=== PATIENT | female | born 1935 | race Caucasian/White ===

== ENCOUNTER 2018-05-30 11:32 | Outpatient (CLI) | payer MEDICARE, SELFPAY ==
[2018-05-30 13:25] LABS: ALT 27 U/L (12-78); AST 26 U/L (15-37); Albumin 3.6 g/dL (3.4-5.0); Alkaline Phosphatase 105 U/L (46-116); Anion Gap 11.1 mmol/L (3-11); BUN 22 mg/dL (7-18); CO2 27.9 mmol/L (21.0-32.0); CREATININE 0.64 mg/dL (0.55-1.02); Calcium 9.3 mg/dL (8.5-10.1); Chloride 106 mmol/L (98-107); Cholesterol 160 mg/dL (50-200); Glucose 103 mg/dL (70-100); HDL Cholesterol 53 mg/dL (40-60); LDL CHOLESTEROL 90 mg/dL (<100); Potassium 4.1 mmol/L (3.5-5.1); Sodium 145 mmol/L (136-145); Total Protein 6.7 g/dL (6.4-8.2); Triglyceride 91 mg/dL (30-150)
== END 2018-05-30 11:52 ==
PROVIDERS: PCP Internal Medicine; Visit Provider Internal Medicine
DX: I10 Essential (primary) hypertension (principal)
CPT/HCPCS: 36415; 80053; 80061; 83721

== ENCOUNTER 2018-08-15 14:12 | Outpatient (CLI) | payer MEDICARE, SELFPAY ==
--- NOTE | 2018-09-05 11:20 | ZIOP_ITS ---
DATE OF DICTATION: September 05, [address]: 12 days, 4 hours, August 152018 Baseline rhythm sinus. Occasional single PAC. Atrial fibrillation noted on 30% of this monitor with heart rates 80-130 bpm. Longest episode of atr ial fibrillation: 2 hours, 15 minutes with average rate 114 bpm. Rare single PVC. Rare couplet. One burst of nonsustained VT, 6-beat duration at 174 bpm. No bradycardia or block. No symptoms. No triggered events. Average rate sinus 68 bpm, range 51-99 bpm.
== END 2018-08-15 14:32 ==
PROVIDERS: PCP Internal Medicine; Visit Provider Internal Medicine
DX: I48.91 Unspecified atrial fibrillation (principal)
CPT/HCPCS: 0296T

== ENCOUNTER 2018-09-05 08:42 | Outpatient (CLI) | payer MEDICARE, SELFPAY | END 2018-09-05 09:02 | PROVIDERS: PCP Internal Medicine; Referring Provider Internal Medicine; Visit Provider Internal Medicine Interventional Cardiology | DX: I48.91 Unspecified atrial fibrillation (principal) | CPT/HCPCS: 0298T ==

== ENCOUNTER 2019-08-09 02:43 | Outpatient (CLI) | payer OTHER, SELFPAY ==
[2019-08-09 16:28] LABS: TSH (W/Ref FT4) 1.35 uIU/mL (0.36-3.74); Vitamin B12 623 pg/mL (193-986)
[2019-08-09 16:42] LABS: Creatine Kinase 96 U/L (26-192)
[2019-08-12 09:36] LABS: Thiamine (Vitamin B1), WB 173 nmol/L (70-180)
== END 2019-08-09 03:03 ==
PROVIDERS: PCP Internal Medicine; Visit Provider Internal Medicine
DX: R41.3 Other amnesia (principal); R25.2 Cramp and spasm
CPT/HCPCS: 36415; 82550; 82607; 84425; 84443

== ENCOUNTER 2019-09-19 01:41 | Outpatient (CLI) | payer OTHER, SELFPAY ==
--- NOTE | 2019-09-19 | DI.MAMMO_ITS ---
EXAM: MAMMO SCREENING CLINICAL HISTORY: SCREENING, Z12.31 TECHNIQUE: Mammograms were interpreted according to the usual protocol including computer analysis w [employer] system, tomosynthesis and C-view imaging. COMPARISON: FINDINGS: The breasts are of moderate density with fairly symmetrical distribution of fibroglandular tissue. N o dominant mass or clumped microcalcification is identified in either breast. Current examination co mpared with previous examinations including April 2017 and there has been no gross interval change in appearance comparison with previous studies. IMPRESSION: No specific evidence of malignancy at this time. Routine screening examinations are suggested at yea rly intervals in this age group according to the ACS ACR guidelines. BI-RADS Category 1 - Negative Breast Density - Category B - Scattered areas of fibroglandular density
--- NOTE | 2019-09-19 09:30 | DI.DEXA_ITS ---
EXAM: XR DEXA BONE DENSITY W/WO EVELIN CLINICAL HISTORY: SCREENING FOR OSTEOPOROSIS IN POSTMENOPAUSAL WOMAN, Z78.0 TECHNIQUE: COMPARISON: No exams were available for comparison FINDINGS: DEXA scan was performed according to the usual protocol. Note is made mild anterior vertebral compression fracture of what appears to be T11. Scanning of the left hip shows T-score -1.9 with left femoral neck T-score -2.5. Prior study of 2010 showed left hip T-score -1.6. Lumbar spine scanning shows T-score 1.3. Previous examination of 25/01 showed lumbar T-score 0.4. Left forearm scanning shows T-score -3.6. Prior study of 25/01 showed forearm T-score -2.3. IMPRESSION: Findings consistent with osteoporosis according to the WHO criteria. Note is made T11 mild anterior vertebral compression fracture.
== END 2019-09-19 02:01 ==
PROVIDERS: PCP Internal Medicine; Visit Provider Internal Medicine
DX: Z12.31 Encounter for screening mammogram for malignant neoplasm of breast (principal); M81.0 Age-related osteoporosis without current pathological fracture
CPT/HCPCS: 77063; 77067; 77080

== ENCOUNTER 2019-09-19 03:42 | Outpatient (CLI) | payer OTHER, SELFPAY ==
[2019-09-19 10:56] LABS: ALT 25 U/L (14-59); AST 27 U/L (15-37); Albumin 3.3 g/dL (3.4-5.0); Alkaline Phosphatase 87 U/L (46-116); Anion Gap 6.6 mmol/L (3-11); BUN 22 mg/dL (7-18); CO2 31.4 mmol/L (21.0-32.0); CREATININE 0.66 mg/dL (0.55-1.02); Calcium 8.8 mg/dL (8.5-10.1); Calculated LDL 82 mg/dL (<100); Chloride 106 mmol/L (98-107); Cholesterol 138 mg/dL (<200); Glucose 103 mg/dL (74-106); HDL Cholesterol 45 mg/dL (40-60); Potassium 4.2 mmol/L (3.5-5.1); Sodium 144 mmol/L (136-145); Total Protein 6.5 g/dL (6.4-8.2); Triglyceride 55 mg/dL (<150)
== END 2019-09-19 04:02 ==
PROVIDERS: PCP Internal Medicine; Visit Provider Internal Medicine
DX: R25.2 Cramp and spasm (principal); I10 Essential (primary) hypertension
CPT/HCPCS: 36415; 80053; 80061; 83735

== ENCOUNTER 2020-01-15 03:39 | Outpatient (CLI) | payer OTHER, MEDICARE, SELFPAY ==
[2020-01-15 10:18] LABS: Abs Immature Grans 0.03 10^3/uL (0.0-0.06); Absolute Basophil Count 0.02 10^3/uL (0.0-0.2); Absolute Eosinophil Count 0.12 10^3/uL (0.0-0.7); Absolute Monocyte Count 0.51 10^3/uL (0.1-0.8); Absolute Neutrophil Count 4.13 10^3/uL (1.2-6.7); Basophils % 0.3; Eosinophils % 1.9; HCT 43.7 % (36.0-46.0); HGB 14.1 g/dL (11.2-15.7); Immature Grans % 0.5; Lymphocytes % 23.8; MCHC 32.3 % (32.0-36.0); MPV 11.5 fL (8.0-11.0); Monocytes % 8.1; Neutrophils % 65.4; Nucleated RBC 0 %; Platelet Count 178 10^3/uL (130-400); RBC 4.55 10^6/uL (3.93-5.22); RDW 12.4 % (11.7-14.6); RDW-SD 44.3 fL; WBC 6.31 10^3/uL (4.4-10.8)
[2020-01-19 17:02] LABS: 25-Hydroxy D Total 49 ng/mL; 25-Hydroxy D2 <4.0 ng/mL; 25-Hydroxy D3 49 ng/mL
== END 2020-01-15 03:59 ==
PROVIDERS: PCP Internal Medicine; Visit Provider Internal Medicine
DX: M81.0 Age-related osteoporosis without current pathological fracture (principal)
CPT/HCPCS: 36415; 82306; 83735; 85025

== ENCOUNTER 2020-02-14 02:57 | Outpatient (RCR) | payer OTHER, SELFPAY ==
[2020-02-14] MEDS: Normal Saline Flush 10 ML SYR IVP (09:52)
== END 2020-03-07 23:59 | disposition home or self-care (01) ==
LOC: INF 02:57
PROVIDERS: PCP Internal Medicine; Visit Provider Family Medicine
DX: M81.0 Age-related osteoporosis without current pathological fracture (principal)
CPT/HCPCS: 96365; J3489

== ENCOUNTER 2020-11-05 10:16 | Emergency (ER) | payer OTHER, MEDICARE, SELFPAY ==
[2020-11-05] VITALS (21 sets, daily range): BP systolic 153–206; BP diastolic 79–133; PULSE 56–72; RESP 10–25; TEMP 36.2–36.5; O2SAT 94–98
--- NOTE | 2020-11-05 10:15 | DI.RAD_ITS ---
Exam(s) XR CHEST 2V PA LATERAL EXAM: XR CHEST 2V PA LATERAL CLINICAL HISTORY: chest pain TECHNIQUE: 2D digital imaging was performed. COMPARISON: No exams were available for comparison FINDINGS: MEDIASTINUM: Normal. HEART: Normal. PULMONARY VASCULATURE: There is prominence of the superior mediastinum, particularly in the right par atracheal region. This may be due to adenopathy, mass or ectasia of the pulmonary vasculature. A CT scan may be considered for further evaluation. LUNGS: Clear. PLEURAL SPACE: No pleural effusion or pneumothorax. BONE:Within normal limits for the patient's age. OTHER FINDINGS:Normal. IMPRESSION: 1. No acute pulmonary findings. 2. Widening of the superior mediastinum. This can be seen with mass, adenopathy or ectasia of the pu lmonary vasculature. A CT scan with contrast may be considered for further evaluation. DATA REPOSITORY: RADIATION DOSE DELIVERED:
--- NOTE | 2020-11-05 10:15 | RT.EKG_ITS ---
APPROVED REPORT Exam: Resting ECG Reason for Exam: chest pain Patient Location: E HR:72 bpm ECG Measurements Heart Rate [address] 199 P 57 QRSd 80 QRS 18 QT 448 T 62 QTc 490 Conclusion Sinus rhythm...normal P axis, V-rate 60- 99 Probable left atrial enlargement...P >50mS, <-0.10mV V1
--- NOTE | 2020-11-05 10:33 | W.ED.GENAD ---
Discharge Plan Disposition Patient Disposition: HOME Condition: Stable Discharge Details Clinical Impression: Chest pain, Hypertension Primary Care Provider: [facility] ED Provider: Kobe Gil Home Meds and New Rx's Prescriptions: Continued diphenhydramine-acetaminophen [Tylenol PM Extra Strength] 1 EACH tablet 1 ea PO PRN PRNRF: 0 atorvastatin 40 mg tablet 40 mg PO DAILY RF: 0 buspirone 5 mg tablet 5 mg PO BID RF: 0 metoprolol succinate 100 mg tablet extended release 24 hr 100 mg PO DAILY RF: 0 omega-3 fatty acids Capsule 1 cap PO DAILY RF: 0 calcium carbonate-vitamin D3 [Calcium 500 With D] 500 mg(1,250mg) -400 unit Tablet 1 tab PO DAILY RF: 0 diclofenac sodium [Arthritis Pain (diclofenac)] 1 % Gel 1 applic TOPICAL PRN PRNRF: 0 Eliquis 2.5 mg tablet 2.5 mg PO BID RF: 0 Adults Multivitamin 18 mg iron-400 mcg-25 mcg Tablet 1 tab PO DAILY RF: 0 Discharge Instructions Instructions: Chest Pain (ED), Hypertension (ED) Additional Instructions: Work-up in the ER does not reveal any obvious emergent process. As we discussed your blood pressure was elevated here in the ER but did trend downward without intervention. I do recommend that you take a dose of 75 mg of losartan rather than your typical 50. Please keep a log of your blood pressures at home and bring them to your appointment when you see your primary care provider. Please watch for new or worsening symptoms and return to the ER for any concern. I strongly recommend that you contact your primary care provider later today or tomorrow to discuss your ongoing symptoms and need for outpatient reevaluation. I do not want you to wait a full month as scheduled to be seen by her primary care provider. Medical Decision Making This is an 85-year-old female, past medical history of hypertension, hyperlipidemia, Marfan's syndrome, aneurysm of the brain and aorta, presenting to the ER for evaluation of left sided chest pain under her breast that woke her up around 3:00. Pain was moderate-severe at that time and lasted for several hours. Since that time has come in sporadic episodes, nothing makes it worse or better. When present lasts for a couple of seconds it is sharp in nature. When present though the pain is much less severe than when it began, typically now a 2 out of 10. Currently she is a symptom includes differential includes but not excluded to atypical ACS, PE, aneurysm, dissection, pneumonia, esophageal spasm, chest wall discomfort, etc. Given her history of aneurysm, will not initiate any aspirin therapy emergently. Will obtain IV access, initiate cardiac work-up including a D-dimer Patient did present hypertensive at 202/79, without any intervention, blood pressure was decreasing, 156/133, 176/89. She remains asymptomatic Laboratory values do not reveal any obvious emergent process, troponin less than 0.05. D-dimer is elevated at 948. Will pursue CT imaging of the chest for further evaluation. I contacted our radiology department and discussed signs specifically looking for both a PE and potential dissection so they may be better time the study. CT imaging unremarkable for emergent process, please see official read below stable aneurysm, no PE Repeat blood pressure of 181/83. Her pharmacy was contacted, her losartan 50 mg is a scored pill. I discussed her hypertension with her, again currently asymptomatic. Patient states that she was on amlodipine in the past but this medication caused side effects so her hypertension medications were changed. Patient will begin taking 75 mg of losartan instead of 50 and start keeping a log of her blood pressures at home. She states that she is scheduled to be seen by her primary care provider in the next month, I have advised that she contact them later today or tomorrow to discuss her ongoing symptoms and need for outpatient reevaluation. She may need her blood pressure medications further changed to obtain better control. The patient is agreeable to awaiting a repeat troponin and EKG repeat EKG performed at 1259, please see official report by Dr. Momin. Sinus rhythm, ventricular rate of 79, IA interval prolonged at 220 ms. No STEMI. Repeat troponin remains less than 0.05 Rapid cardiac rule out unremarkable here in the ER. Patient remains asymptomatic. Given her age and multiple comorbidities we discussed observation admission but patient declines. Given this, she was encouraged to return to the ER for any new or worsening symptoms. As above she will contact her primary care provider in the next 24 hours begin taking 75 mg. Patient and daughter are comfortable with this plan and have no additional questions or concerns. Standard discharge and return precautions given This documentation was generated using [employer] system, please disregard any oddities of phrase or misspellings. Medical Records Medical records reviewed: Yes I reviewed the patient's medical records. Imaging Data Radiologic Study: Attestation: I personally reviewed and interpreted this imaging study as follows: Imaging: X-Ray Radiologist's impression: Exam(s) XR CHEST 2V PA LATERAL EXAM: XR CHEST 2V PA LATERAL CLINICAL HISTORY: chest pain TECHNIQUE: 2D digital imaging was performed. COMPARISON: No exams were available for comparison FINDINGS: MEDIASTINUM: Normal. HEART: Normal. PULMONARY VASCULATURE: There is prominence of the superior mediastinum, particularly in the right paratracheal region. This may be due to adenopathy, mass or ectasia of the pulmonary vasculature. A CT scan may be considered for further evaluation. LUNGS: Clear. PLEURAL SPACE: No pleural effusion or pneumothorax. BONE:Within normal limits for the patient's age. OTHER FINDINGS:Normal. IMPRESSION: 1. No acute pulmonary findings. 2. Widening of the superior mediastinum. This can be seen with mass, adenopathy or ectasia of the pulmonary vasculature. A CT scan with contrast may be considered for further evaluation. Radiologic Study #2: Attestation: I personally reviewed and interpreted this imaging study as follows: Imaging: CT Scan Radiologist's impression: Exam(s) CT CHEST PE CTA EXAM: CT CHEST PE CTA CLINICAL HISTORY: Dario pain, R/o PE, Hx of Marfan's and aneurysm. TECHNIQUE: Imaging Protocol: Axial CT angiography was performed with multi-slice acquisition and multi-planar and/or 3D reconstructions. CONTRAST MATERIAL: Intravenous: Omnipaque 350 Contrast volume:100 mL COMPARISON: CR XR CHEST 2V PA LATERAL from 11/05/2020 CR XR CHEST 2V PA LATERAL from 11/05/2020 FINDINGS: Tracheobronchial tree: Patent where visualized. Pulmonary parenchyma: No consolidation or dominant measurable mass. No architectural distortion. There is dependent atelectasis. Pulmonary Arteries: No evidence of filling defect to suggest pulmonary emboli. Mediastinum and Agnes: No dominant adenopathy or fluid collection. Visualized thyroid gland: Unremarkable. Pleura: No effusion or pneumothorax. Cardiomegaly. Heart: Cardiomegaly. Moderate coronary artery calcification. No pericardial effusion. Aorta: There is aneurysmal dilatation of the ascending thoracic aorta measuring 4.9 cm in maximum diameter. There is atherosclerosis. Upper abdomen: Parapelvic renal cysts are present. Soft tissues: Unremarkable. Bones: Within normal limits. IMPRESSION: 1. No evidence of pulmonary embolism or thoracic aortic dissection. 2. 4.9 cm ascending thoracic aortic aneurysm. 3. Results of this exam have been verbally communicated with provider. Lab Data Lab results reviewed: Yes I reviewed the patient's lab results. Labs: Laboratory Tests Range/Units 11/05/20 11/05/20 11/05/20 10:28 10:28 10:54 WBC (4.4-10.8) 10^3/uL 8.21 RBC (3.93-5.22) 10^6/uL 4.77 Hgb (11.2-15.7) g/dL 14.9 Hct (36.0-46.0) % 48.0 H MCV (80-95) fL 100.6 H MCH (27.0-33.0) pg 31.2 MCHC (32.0-36.0) % 31.0 L RDW (11.7-14.6) % 12.6 Plt Count (130-400) 10^3/uL 162 MPV (8.0-11.0) fL 11.8 H Immature Gran % 0.6 Neutrophils % 74.0 Lymphocytes % 16.8 Monocytes % 7.1 Eosinophils % 1.1 Basophils % 0.4 Nucleated RBC % % 0 Absolute Neutrophils (1.2-6.7) 10^3/uL 6.08 Absolute Lymphocytes (1.2-3.4) 10^3/uL 1.38 Absolute Monocytes (0.1-0.8) 10^3/uL 0.58 Absolute Eosinophils (0.0-0.7) 10^3/uL 0.09 Absolute Basophils (0.0-0.2) 10^3/uL 0.03 PT (9.3-11.0) sec INR (0.9-1.1) APTT (21.0-27.5) sec D-Dimer (<500) ng/mlFEU Sodium (136-145) mmol/L 144 Potassium (3.5-5.1) mmol/L 3.9 Chloride (98-107) mmol/L 107 Carbon Dioxide (21.0-32.0) mmol/L 30.8 Anion Gap (3-11) mmol/L 6.2 BUN (7-18) mg/dL 11 Creatinine (0.55-1.02) mg/dL 0.6 Estimated GFR/1.73 m2 (mL/min/1.73m2) >= 60.00 Glucose (74-106) mg/dL 97 Calcium (8.5-10.1) mg/dL 8.6 Magnesium (1.8-2.4) mg/dL 1.9 Total Bilirubin (0.2-1.0) mg/dL 0.7 AST (15-37) U/L 19 ALT (14-59) U/L 25 Alkaline Phosphatase (46-116) U/L 73 Troponin I (<0.06) ng/mL < 0.05 Total Protein (6.4-8.2) g/dL 6.5 Albumin (3.4-5.0) g/dL 3.2 L Range/Units 11/05/20 11/05/20 10:54 13:28 WBC (4.4-10.8) 10^3/uL RBC (3.93-5.22) 10^6/uL Hgb (11.2-15.7) g/dL Hct (36.0-46.0) % MCV (80-95) fL MCH (27.0-33.0) pg MCHC (32.0-36.0) % RDW (11.7-14.6) % Plt Count (130-400) 10^3/uL MPV (8.0-11.0) fL Immature Gran % Neutrophils % Lymphocytes % Monocytes % Eosinophils % Basophils % Nucleated RBC % % Absolute Neutrophils (1.2-6.7) 10^3/uL Absolute Lymphocytes (1.2-3.4) 10^3/uL Absolute Monocytes (0.1-0.8) 10^3/uL Absolute Eosinophils (0.0-0.7) 10^3/uL Absolute Basophils (0.0-0.2) 10^3/uL PT (9.3-11.0) sec 10.5 INR (0.9-1.1) 1.0 APTT (21.0-27.5) sec 23.0 D-Dimer (<500) ng/mlFEU 948 H Sodium (136-145) mmol/L Potassium (3.5-5.1) mmol/L Chloride (98-107) mmol/L Carbon Dioxide (21.0-32.0) mmol/L Anion Gap (3-11) mmol/L BUN (7-18) mg/dL Creatinine (0.55-1.02) mg/dL Estimated GFR/1.73 m2 (mL/min/1.73m2) Glucose (74-106) mg/dL Calcium (8.5-10.1) mg/dL Magnesium (1.8-2.4) mg/dL Total Bilirubin (0.2-1.0) mg/dL AST (15-37) U/L ALT (14-59) U/L Alkaline Phosphatase (46-116) U/L Troponin I (<0.06) ng/mL < 0.05 Total Protein (6.4-8.2) g/dL Albumin (3.4-5.0) g/dL ECG Data Attestation: I personally reviewed and interpreted this ECG (s) as follows: Interpretation: Please see official report by Dr. Momin. Sinus rhythm, ventricular rate of 72. No STEMI. HPI General Mode of arrival: ambulatory. Date/Time Provider Initiated Documentation: 11/05/20 10:22. Limitations to Documentation: no limitations. Information obtained by: patient and family. HPI Narrative: This is an 85-year-old female, past medical history that includes hypertension, hyperlipidemia, Marfan syndrome known aneurysm of the aorta and brain, presenting to the ER complaining of left-sided chest pain under her left breast, nonradiating, woke her from sleep this morning around 3 AM. Patient states that she had a fairly similar episode a couple of months ago, symptoms resolved on their own within an hour or so, never sought medical attention. She states initially the pain was sharp and moderate-severe but then subsequently resolved after a few hours. Denies any chest pain at this time. She denies recent illness or trauma. Denies fever, headache, neck pain, shortness of breath, cough, abdominal pain, nausea, vomiting. She denies pain or swelling in her legs. She has not taken any medication for her symptoms. Related Data Home Medications Medication Instructions Recorded Confirmed diphenhydramine-acetaminophen 1 ea PO PRN PRN 09/16/12 09/16/12 [Tylenol PM Extra Strength] Adults Multivitamin 1 tab PO DAILY 11/05/20 11/05/20 Eliquis 2.5 mg PO BID 11/05/20 11/05/20 atorvastatin 40 mg PO DAILY 11/05/20 11/05/20 buspirone 5 mg PO BID 11/05/20 11/05/20 calcium carbonate-vitamin D3 1 tab PO DAILY 11/05/20 11/05/20 [Calcium 500 With D] diclofenac sodium [Arthritis Pain 1 applic TOPICAL PRN PRN 11/05/20 11/05/20 (diclofenac)] metoprolol succinate 100 mg PO DAILY 11/05/20 11/05/20 omega-3 fatty acids 1 cap PO DAILY 11/05/20 11/05/20 Allergies Allergy/AdvReac Type Severity Reaction Status Date / Time No Known Allergies Allergy Unverified 11/05/20 14:11 General Stated Complaint: Chest Pain JEFF: 2 Review of Systems Constitutional Constitutional: Denies fatigue, Denies fever(s), Denies headache(s) and Denies weakness Eyes Eyes: Denies change in vision ENT Ears, Nose, Mouth, and Throat: Denies headache(s) and Denies neck pain Cardiovascular Cardiovascular: Reports chest pain and Denies dyspnea Respiratory Respiratory: Denies cough and Denies dyspnea Gastrointestinal Gastrointestinal: Denies abdominal pain, Denies nausea and Denies vomiting Musculoskeletal Musculoskeletal: Denies neck pain, Denies numbness and Denies tingling Integumentary/Breasts Skin/Breast: Denies rash Neurologic Neurologic: Denies headache(s), Denies numbness, Denies tingling and Denies weakness Endocrine Endocrine: Denies fatigue Hematologic/Lymphatic Hematologic/Lymphatic: Denies easy bleeding and Denies easy bruising [facility] Social History Smoking/Tobacco Use Status: Never Smoking risk assessment performed?: Yes Drug use: Never Additional Social history: unable to assess privately Exam Const General: cooperative, healthy appearing, comfortable and no acute distress Orientation: alert and awake [facility] Head: normal to inspection, normocephalic and atraumatic Face and sinus: normal facial exam Mouth: moist mucous membranes Eyes Conjunctivae: conjunctivae normal Neck Neck: normal visual inspection, full ROM, trachea midline and supple Resp Effort & Inspection: normal respiratory effort and able to speak in complete sentences Auscultation: clear to auscultation bilaterally Cardio Rate: regular rate Rhythm: regular rhythm GI Palpation: soft, not firm, no guarding, no pulsatile masses and nontender Back/Spine/Pelvis Back: No back tenderness Skin General skin exam: no rashes or lesions noted Neuro General: patient alert, patient awake, moves all extremities and no focal motor deficits Cognition: normal cognition Speech: speech normal Gait: normal gait Sensory Exam: no sensory deficits noted Extrem General: normal to inspection, full ROM, capillary refill normal, no pedal edema and no calf tenderness Psych Appearance: grossly normal Mental Status: mental status grossly normal Course Vital Signs Vital signs: Vital Signs Temperature 36.5 C 11/05/20 10:21 Pulse 72 11/05/20 10:21 Respiratory Rate 16 11/05/20 10:21 Pulse Oximetry 98 11/05/20 10:21 Temperature 36.5 C 11/05/20 10:21 Temperature Source Skin 11/05/20 10:21 Pulse 72 11/05/20 10:21 Respiratory Rate 16 11/05/20 10:21 Pulse Oximetry 98 11/05/20 10:21 Oxygen Delivery Method Room Air 11/05/20 10:21 Oxygen Flow Rate 0 11/05/20 10:21 Pain Level 2 11/05/20 10:21
[2020-11-05 11:05] LABS: Abs Immature Grans 0.05 10^3/uL (0.0-0.06); Absolute Basophil Count 0.03 10^3/uL (0.0-0.2); Absolute Eosinophil Count 0.09 10^3/uL (0.0-0.7); Absolute Lymphocyte Count 1.38 10^3/uL (1.2-3.4); Absolute Monocyte Count 0.58 10^3/uL (0.1-0.8); Absolute Neutrophil Count 6.08 10^3/uL (1.2-6.7); Basophils % 0.4; Eosinophils % 1.1; HGB 14.9 g/dL (11.2-15.7); Immature Grans % 0.6; Lymphocytes % 16.8; MCH 31.2 pg (27.0-33.0); MCV 100.6 fL (80-95); MPV 11.8 fL (8.0-11.0); Monocytes % 7.1; Nucleated RBC 0 %; Platelet Count 162 10^3/uL (130-400); RBC 4.77 10^6/uL (3.93-5.22); RDW 12.6 % (11.7-14.6); RDW-SD 47.1 fL; WBC 8.21 10^3/uL (4.4-10.8)
[2020-11-05 11:14] LABS: Magnesium 1.9 mg/dL (1.8-2.4)
[2020-11-05 11:20] LABS: Prothrombin Time 10.5 sec (9.3-11.0)
[2020-11-05 11:23] LABS: ALT 25 U/L (14-59); AST 19 U/L (15-37); Albumin 3.2 g/dL (3.4-5.0); Alkaline Phosphatase 73 U/L (46-116); Anion Gap 6.2 mmol/L (3-11); BUN 11 mg/dL (7-18); Bilirubin, Total 0.7 mg/dL (0.2-1.0); CO2 30.8 mmol/L (21.0-32.0); CREATININE 0.6 mg/dL (0.55-1.02); Calcium 8.6 mg/dL (8.5-10.1); Chloride 107 mmol/L (98-107); Glucose 97 mg/dL (74-106); Potassium 3.9 mmol/L (3.5-5.1); Sodium 144 mmol/L (136-145); Total Protein 6.5 g/dL (6.4-8.2)
[2020-11-05 11:24] LABS: Troponin I < 0.05 ng/mL (<0.06)
[2020-11-05 11:43] LABS: D-Dimer 948 ng/mlFEU (<500)
--- NOTE | 2020-11-05 13:00 | RT.EKG_ITS ---
APPROVED REPORT Exam: Resting ECG Reason for Exam: chest pain Patient Location: E HR:58 bpm ECG Measurements Heart Rate 58 AXIS VA 192 P 51 QRSd 80 QRS -10 QT 463 T 42 QTc 455 Conclusion Sinus bradycardia...rate< 60
--- NOTE | 2020-11-05 13:00 | DI.CT_ITS ---
Exam(s) CT CHEST PE CTA EXAM: CT CHEST PE CTA CLINICAL HISTORY: Dario pain, R/o PE, Hx of Marfan's and aneurysm. TECHNIQUE: Imaging Protocol: Axial CT angiography was performed with multi-slice acquisition and mu lti-planar and/or 3D reconstructions. CONTRAST MATERIAL: Intravenous: Omnipaque 350 Contrast volume:100 mL COMPARISON: CR XR CHEST 2V PA LATERAL from 11/05/2020 CR XR CHEST 2V PA LATERAL from 11/05/2020 FINDINGS: Tracheobronchial tree: Patent where visualized. Pulmonary parenchyma: No consolidation or dominant measurable mass. No architectural distortion. Ther e is dependent atelectasis. Pulmonary Arteries: No evidence of filling defect to suggest pulmonary emboli. Mediastinum and Agnes: No dominant adenopathy or fluid collection. Visualized thyroid gland: Unremarkable. Pleura: No effusion or pneumothorax. Cardiomegaly. Heart: Cardiomegaly. Moderate coronary artery calcification. No pericardial effusion. Aorta: There is aneurysmal dilatation of the ascending thoracic aorta measuring 4.9 cm in maximum richard meter. There is atherosclerosis. Upper abdomen: Parapelvic renal cysts are present. Soft tissues: Unremarkable. Bones: Within normal limits. IMPRESSION: 1. No evidence of pulmonary embolism or thoracic aortic dissection. 2. 4.9 cm ascending thoracic aortic aneurysm. 3. Results of this exam have been verbally communicated with provider. RADIATION DOSE DELIVERED: 247.76mGy.cm Total DLP DATA REPOSITORY: All CT scans at this facility are submitted to the National Radiology Data Registry (NRDR) Dose Index Registry (DIR) with the [employer] (ACR). RADIATION OPTIMIZATION: All CT scans at this facility use at least one of these dose optimization te chniques: automated exposure control; mA and/or kV adjustment per patient size (includes targeted exa ms where dose is matched to clinical indication); or iterative reconstruction.
[2020-11-05] MEDS: Omnipaque 350 MG/ML 100 ML BTL IJ (13:05)
[2020-11-05 13:53] LABS: Troponin I < 0.05 ng/mL (<0.06)
== END 2020-11-05 14:44 | disposition home or self-care (01) ==
PROVIDERS: Emergency Provider Physician Assistant; PCP Internal Medicine
DX: R07.9 Chest pain, unspecified (principal); I10 Essential (primary) hypertension
CPT/HCPCS: 36415; 71275; 80053; 93005; 99285; 71046; 83735; 84484; 85025; 85379; 85610; 85730; 93010; 99284; J3490

== ENCOUNTER 2020-12-04 16:52 | Outpatient (REF) | payer OTHER, MEDICARE, SELFPAY ==
[2020-12-04 20:06] LABS: Anion Gap 5.3 mmol/L (3-11); BUN 28 mg/dL (7-18); CO2 31.7 mmol/L (21.0-32.0); CREATININE 0.9 mg/dL (0.55-1.02); Calcium 8.6 mg/dL (8.5-10.1); Chloride 105 mmol/L (98-107); Estimated GFR 59.65 (mL/min/1.73m2); Glucose 104 mg/dL (74-106); Potassium 4.6 mmol/L (3.5-5.1); Sodium 142 mmol/L (136-145)
== END 2020-12-04 16:53 | disposition home or self-care (01) ==
LOC: NCHCN 16:52
PROVIDERS: PCP Internal Medicine; Visit Provider Family Medicine
DX: I10 Essential (primary) hypertension (principal)
CPT/HCPCS: 80048

== ENCOUNTER 2021-02-20 02:15 | Outpatient (RCR) | payer MEDICARE, SELFPAY ==
[2021-02-20] MEDS: Normal Saline Flush 10 ML SYR IVP (13:16)
== END 2021-03-07 23:59 | disposition home or self-care (01) ==
LOC: INF 02:15
PROVIDERS: PCP Internal Medicine; Visit Provider Family Medicine
DX: M81.0 Age-related osteoporosis without current pathological fracture (principal)
CPT/HCPCS: 96365; J3489

== ENCOUNTER 2021-06-10 04:32 | Outpatient (CLI) | payer MEDICARE, SELFPAY ==
[2021-06-10 12:44] LABS: CREATININE 0.8 mg/dL (0.55-1.02)
== END 2021-06-10 04:33 | disposition home or self-care (01) ==
LOC: LBO 04:32
PROVIDERS: PCP Internal Medicine; Visit Provider Thoracic Surgery (Cardiothoracic Vascular Surgery)
DX: I71.2 Thoracic aortic aneurysm, without rupture (principal)
CPT/HCPCS: 36415; 82565

== ENCOUNTER → 2021-07-28 02:20 | Outpatient (CLI) | payer MEDICARE, SELFPAY ==
--- NOTE | 2021-07-28 13:23 | DI.CT_ITS ---
Exam(s) CT CHEST WO EXAM: CT CHEST WO CLINICAL HISTORY: THORACIC ASCENDING AORTIC ANEURYSM, I71.2. TECHNIQUE: Imaging protocol: Axial computed tomography images were obtained and coronal and sagittal reformatted images were created and reviewed. COMPARISON: CT CT CHEST PE CTA from 11/05/2020 FINDINGS: Tracheobronchial tree: Patent where visualized. Mediastinum and Agnes: No dominant adenopathy or fluid collection. Pulmonary parenchyma: Stable focal area of scarring posterior aspect of right upper lobe. No consoli dation or dominant measurable mass. Mild fibrotic changes.. Pleura: No effusion or pneumothorax. Heart: The heart is mildly dilated. coronary artery calcifications are seen. Mitral annular calcific ations. Aorta: Ascending aorta stable at 4.9 cm maximal AP dimension. Aortic arch and descending thoracic ao rta tortuous and heavily calcified. Upper abdomen: Parapelvic cysts both kidneys. Lymph nodes: Within normal limits. Bones:Degenerative changes and scoliosis. Tubes, Catheters, and Lines: IMPRESSION: Severe atherosclerotic changes of the aorta. Stable dilatation of the ascending aorta to 4.9 cm. RADIATION DOSE DELIVERED: 357.48mGy.cm Total DLP 357.48mGy.cm Total DLP DATA REPOSITORY: All CT scans at this facility are submitted to the National Radiology Data Registry (NRDR) Dose Index Registry (DIR) with the [employer] (ACR). RADIATION OPTIMIZATION: All CT scans at this facility use at least one of these dose optimization te chniques: automated exposure control; mA and/or kV adjustment per patient size (includes targeted exa ms where dose is matched to clinical indication); or iterative reconstruction.
== END ==
PROVIDERS: PCP Internal Medicine; Visit Provider Family Medicine
DX: I71.2 Thoracic aortic aneurysm, without rupture (principal); I70.0 Atherosclerosis of aorta
CPT/HCPCS: 71250

== ENCOUNTER 2022-02-18 15:34 | Outpatient (REF) | payer MEDICARE, SELFPAY ==
[2022-02-18 21:40] LABS: HCT 41.2 % (36.0-46.0); HGB 13.3 g/dL (11.2-15.7); MCH 31.1 pg (27.0-33.0); MCHC 32.3 % (32.0-36.0); MCV 97 fL (80-95); MPV 12.2 fL (8.0-11.0); Platelet Count 174 10^3/uL (130-400); RBC 4.27 10^6/uL (3.93-5.22); RDW 12.8 % (11.7-14.6); RDW-SD 45.3 fL; WBC 6.98 10^3/uL (4.4-10.8)
[2022-02-18 22:17] LABS: ALT 28 U/L (14-59); AST 38 U/L (15-37); Albumin 3.3 g/dL (3.4-5.0); Alkaline Phosphatase 94 U/L (46-116); Anion Gap 7.9 mmol/L (3-11); BUN 23 mg/dL (7-18); CO2 31.1 mmol/L (21.0-32.0); CREATININE 0.9 mg/dL (0.55-1.02); Chloride 104 mmol/L (98-107); Estimated GFR 62.65 (mL/min/1.73m2); Glucose 104 mg/dL (74-106); Potassium 3.8 mmol/L (3.5-5.1); Sodium 143 mmol/L (136-145); Total Protein 6.6 g/dL (6.4-8.2)
== END 2022-02-18 15:35 | disposition home or self-care (01) ==
LOC: NCHCN 15:34
PROVIDERS: PCP Internal Medicine; Visit Provider Family Medicine
DX: I10 Essential (primary) hypertension (principal)
CPT/HCPCS: 80053; 85027

== ENCOUNTER 2022-06-24 11:56 | Outpatient (REF) | payer MEDICARE, SELFPAY ==
--- OUTSIDE RECORDS SUMMARY | 2022-06-24 11:57 | XMS_ITS | Continuity of Care Document ---
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 Name Role Phone Qamar Benavides Primary Care Physician Encounter LTTL_ME FIN NBR [id number] Date(s): 03/09/22 - 03/09/[address] [address]- Encounter Diagnosis Vertigo(Discharge Diagnosis) - 03/09/22 Discharge Disposition: Home or Self Care Attending Physician: August Diggs MD Admitting Physician: August Diggs MD Functional Status 03/09/22 Other exposure to Infectious Disease Non e Medications apixaban 0 Refill(s) Start Date: 03/09/22 Status: Ordered aspirin 0 Refill(s) Start Date: 03/09/22 Status: Ordered atorvastatin 0 Refill(s) Start Date: 03/09/22 Status: Ordered chlorthalidone 0 Refill(s) Start Date: 03/09/22 Status: Ordered losartan 0 Refill(s) Start Date: 03/09/22 Status: Ordered meclizine 25 mg oral tablet 25 mg = 1 tab, Oral, TID, PRN as needed for dizziness, # 30 tab, 0 Refill(s) Start Date: 03/09/22 Status: Ordered metoprolol succinate 0 Refill(s) Start Date: 03/09/22 Status: Ordered Xarelto 0 Refill(s) Start Date: 03/09/22 Status: Ordered Results Laboratory List Name Date CBC w/ Diff 03/09/22 Comprehensive Metabolic Panel (CMP) Lipase Level 03/09/22 Troponin-I 03/09/22 Automated Diff 03/09/22 Most recent to oldest [Reference Range]: 1 WBC [4.8-10.8 K/mcL] 7.0 K/mcL (03/09/22 5:30 PM) RBC [4.20-6.10 Million/mcL] 4.04 Million /mcL *LOW* (03/09/22 5:30 PM) Neutro Auto [42.2-75.2 %] 70.0 % (03/09/22 5:30 PM) Lymph Auto [20.5-51.1 %] 17.9 % *LOW* (03/09/22 5:30 PM) [place] Auto [1.7-9.3 %] 8.8 % (03/09/22 5:30 PM) Basophil Auto [0.0-0.8 %] 0.4 % (03/09/22 5:30 PM) BUN [8-26 mg/dL] 25 mg/dL (03/09/22 5:30 PM) Glucose Level [74-106 mg/dL] 107 mg/dL *HI* (03/09/22 5:30 PM) Potassium Level [3.5-5.1 mmol/L] 3.3 mmo l/L *LOW* (03/09/22 5:30 PM) Baso Absolute [0.0-0.2 K/mcL] 0.0 K/mcL (03/09/22 5:30 PM) MCV [80.0-99.0 fL] 96.8 fL (03/09/22 5:30 PM) AST [15-41 IntlUnit/L] 27 IntlUnit/L (03/09/22 5:30 PM) ALT [14-54 IntlUnit/L] 22 IntlUnit/L (03/09/22 5:30 PM) MCHC [32.0-36.0 g/dL] 32.5 g/dL (03/09/22 5:30 PM) Osmolality [275-295 mOsm/kg] 282 mOsm/kg (03/09/22 5:30 PM) Troponin-I [<=0.05 ng/mL] 0.01 ng/mL (03/09/22 5:30 PM) Sodium Level [134-143 mmol/L] 139 mmol/L (03/09/22 5:30 PM) Lymph Absolute [1.2-3.4 K/mcL] 1.3 K/mcL (03/09/22 5:30 PM) Hct [37.0-52.0 %] 39.1 % (03/09/22 5:30 PM) Lipase Level [18-51 unit/L] 43 unit/L (03/09/22 5:30 PM) Calcium Level [8.9-10.3 mg/dL] 9.3 mg/dL (03/09/22 5:30 PM) Queens Absolute [0.1-0.6 K/mcL] 0.6 K/mcL (03/09/22 5:30 PM) Albumin Level [3.5-5.0 g/dL] 3.5 g/dL (03/09/22 5:30 PM) Protein Total [6.5-8.1 g/dL] 6.9 g/dL (03/09/22 5:30 PM) MCH [27.0-31.0 pg] 31.4 pg *HI* (03/09/22 5:30 PM) Neutro Absolute [1.4-6.5 K/mcL] 4.9 K/mc L (03/09/22 5:30 PM) Bilirubin Total [0.2-1.2 mg/dL] 0.8 mg/d L (03/09/22 5:30 PM) Hgb [12.0-18.0 g/dL] 12.7 g/dL (03/09/22 5:30 PM) Alk Phos [38-130 IntlUnit/L] 74 IntlUnit /L (03/09/22 5:30 PM) MPV [7.4-10.4 fL] 10.9 fL *HI* (03/09/22 5:30 PM) Platelets [130-400 K/mcL] 214 K/mcL (03/09/22 5:30 PM) CO2 [22-32 mmol/L] 30 mmol/L (03/09/22 5:30 PM) Eos Absolute [0.0-0.2 K/mcL] 0.2 K/mcL (03/09/22 5:30 PM) eGFR Non-AA 73 *NA* (03/09/22 5:30 PM) eGFR AA 73 *NA* (03/09/22 5:30 PM) Chloride Level [98-111 mmol/L] 99 mmol/L (03/09/22 5:30 PM) RDW-CV [11.5-14.5 %] 12.6 % (03/09/22 5:30 PM) A/G Ratio 1.0 *NA* (03/09/22 5:30 PM) BUN/Creat Ratio [8.0-20.0] 31.6 *HI* (03/09/22 5:30 PM) Globulin 3.4 *NA* (03/09/22 5:30 PM) Imm Gran Absolute 0.04 *NA* (03/09/22 5:30 PM) Imm Gran Auto [0.0-0.5 %] 0.6 % *HI* (03/09/22 5:30 PM) Creatinine Level [0.44-1.00 mg/dL] 0.79 mg/dL (03/09/22 5:30 PM) Anion Gap [3.0-12.0] 10.0 (03/09/22 5:30 PM) Eos, Auto [0.00-3.00 %] 2.30 % (03/09/22 5:30 PM) Radiology Reports * Exam Date Time Procedure Performing Provider Status 03/09/22 7:39 PM XR Chest 2 Views DomainUser, Generated; Auth (Verified) Notes: (XR Chest 2 Views) Reason For Exam: chest pain XR Chest 2 Views EXAM DESCRIPTION: XR Chest 2 Views 03/09/2022 INDICATION: CHEST PAIN COMPARISON: None IMPRESSION: Clear lungs with no focal infiltrate or pulmonary edema. Mild cardiomegaly. Fullness in the right paratracheal region consistent with aneurysmal dilatation of the ascending thoracic aorta described on CT angiography chest examination from the same date. No pleural effusion or pneumothorax Spondylotic changes of the dorsal spine. JOB #: [id number] Final Signed by: Yonathan Lambert MD Signed (Electronic Signature): 03/10/2022 6:06 am * Exam Date Time Procedure Performing Provider Status 03/09/22 7:[address] Angio Brain/Head DomainUser, Generat ed; Auth (Verified) Notes: (CT Angio Brain/Head) Reason For Exam: dizzy, hx aneurysm, right eye weakness CT Angio Brain/Head PROCEDURE INFORMATION: Exam: CTA Head With Contrast, Arteriography Exam date and time: 03/09/2022 6:49 PM Age: 86 years old Clinical indication: Dizziness and giddiness; Additional info: Dizzy, HX aneurysm, right eye weakness TECHNIQUE: Imaging protocol: Computed tomographic angiography of the head with contrast. Exam focused on the arteries. 3D rendering (Not supervised by radiologist): MIP and/or 3D reconstructed images were created by the technologist. Radiation optimization: All CT scans at this facility use at least one of these dose optimization techniques: automated exposure control; mA and/or kV adjustment per patient size (includes targeted exams where dose is matched to clinical indication); or iterative reconstruction. Contrast material: ISOVUE 370; Contrast volume: 100 ml; Contrast route: INTRAVENOUS (IV); COMPARISON: CT ANGIO HEAD 03/03/2018 10:38 PM FINDINGS: ANTERIOR CIRCULATION: Right internal carotid artery: Patent right cavernous sinus right internal carotid artery stent again noted. Along stent again seen is a focal outpouching suspicious for a small residual aneurysm measuring 3 x 2 mm. Lateral to this region again seen is unchanged peripherally calcified and thrombosed aneurysm measuring 2.3 x 1.3 cm. Right middle cerebral artery: No occlusion or significant stenosis. No aneurysm. Right anterior cerebral artery: No occlusion or significant stenosis. No aneurysm. Left internal carotid artery: Intracranial segment is patent with no significant stenosis. No aneurysm. Left middle cerebral artery: No occlusion or significant stenosis. No aneurysm. Left anterior cerebral artery: No occlusion or significant stenosis. No aneurysm. POSTERIOR CIRCULATION: Right vertebral artery: No occlusion or significant stenosis. No aneurysm. Left vertebral artery: Hypoplastic left vertebral artery again noted Basilar artery: No occlusion or significant stenosis. No aneurysm. Right posterior cerebral artery: No occlusion or significant stenosis. No aneurysm. Left posterior cerebral artery: No occlusion or significant stenosis. No aneurysm. Brain: There is moderate amount of scattered areas of hypoattenuation of the supratentorial white matter, most likely secondary to microvascular ischemic changes. No acute intracranial hemorrhage. Cerebral ventricles: No ventriculomegaly. Bones/joints: Unremarkable. No acute fracture. Soft tissues: Unremarkable. IMPRESSION: 1. No large vessel occlusion 2. 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 THIS DOCUMENT HAS BEEN ELECTRONICALLY SIGNED BY COSMO CRYSTAL MD on 03/09/2022 07:50 PM Final Signed by: Cosmo Crystal MD Signed (Electronic Signature): 03/09/2022 7:50 pm * Exam Date Time Procedure Performing Provider Status 03/09/22 7:[address] Angio Neck DomainUser, Generated; Au th (Verified) Notes: (CT Angio Neck) Reason For Exam: dizzy, hx aneurysm, right eye weakness CT Angio Neck PROCEDURE INFORMATION: Exam: CTA Neck With Contrast Exam date and time: 03/09/2022 6:49 PM Age: 86 years old Clinical indication: Dizziness and giddiness; Additional info: Dizzy, HX aneurysm, right eye weakness TECHNIQUE: Imaging protocol: Computed tomographic angiography of the neck with contrast. 3D rendering (Not supervised by radiologist): MIP and/or 3D reconstructed images were created by the technologist. Radiation optimization: All CT scans at this facility use at least one of these dose optimization techniques: automated exposure control; mA and/or kV adjustment per patient size (includes targeted exams where dose is matched to clinical indication); or iterative reconstruction. Contrast material: ISOVUE 370; Contrast volume: 100 ml; Contrast route: INTRAVENOUS (IV); COMPARISON: CT ANGIO HEAD 03/03/2018 10:38 PM FINDINGS: Right common carotid artery: No stenosis. No dissection or occlusion. Right internal carotid artery: No stenosis of the extracranial segment. No dissection or occlusion. Right external carotid artery: No occlusion or stenosis of the origin. Left common carotid artery: No stenosis. No dissection or occlusion. Left internal carotid artery: No stenosis of the extracranial segment. No dissection or occlusion. Left external carotid artery: No occlusion or stenosis of the origin. Right vertebral artery: No stenosis. No dissection or occlusion. Left vertebral artery: Hypoplastic left vertebral artery Soft tissues: Normal. No significant soft tissue swelling. Bones/joints: No acute fracture. IMPRESSION: No stenosis or occlusion. REFERENCES: NASCET CRITERIA. The degree of stenosis in the cervical segment of the internal carotid artery is based on NASCET criteria. Normal is no stenosis. Mild is less than 50% stenosis. Moderate is 50-69% stenosis. Severe is 70% to 99% stenosis. Total occlusion is no detectable patent lumen. THIS DOCUMENT HAS BEEN ELECTRONICALLY SIGNED BY COSMO CRYSTAL MD on 03/09/2022 08:00 PM Final Signed by: Cosmo Crystal MD Signed (Electronic Signature): 03/09/2022 8:00 pm * Exam Date Time Procedure Performing Provider Status 03/09/22 7:[address] Angio Chest DomainUser, Edwin; Cristal [facility] [place] (Verified) Notes: (CT Angio Chest) Reason For Exam: chest pain CT Angio Chest PROCEDURE INFORMATION: Exam: CTA Chest With Contrast Exam date and time: 03/09/2022 6:49 PM Age: 86 years old Clinical indication: Pain; Other: Not specified; Additional info: Chest pain TECHNIQUE: Imaging protocol: Computed tomographic angiography of the chest with contrast. 3D rendering (Not supervised by radiologist): MIP and/or 3D reconstructed images were created by the technologist. Radiation optimization: All CT scans at this facility use at least one of these dose optimization techniques: automated exposure control; mA and/or kV adjustment per patient size (includes targeted exams where dose is matched to clinical indication); or iterative reconstruction. Contrast material: ISOVUE 370; Contrast volume: 100 ml; Contrast route: INTRAVENOUS (IV); COMPARISON: CT ANGIO HEAD 03/03/2018 10:38 PM FINDINGS: Pulmonary arteries: No focal pulmonary artery filling defect to suggest acute pulmonary embolus. Aorta: Thoracic aorta is atherosclerotic and ectatic. Ascending portion measures up to 4.5 cm. Proximal descending portion measures 2.9 cm. No evidence of dissection. Scattered atherosclerotic changes are seen in the thoracic and upper abdominal aorta. Lungs: No suspicious lung mass or air space process. No central endobronchial lesion. Pleural spaces: No pleural effusion or pneumothorax. Calcified pleural plaque at the right lung apex. Heart: Multi-chamber cardiac dilatation is noted. Lymph nodes: No enlarged mediastinal lymph nodes. Bones/joints: Multi-level, age-related thoracic degenerative disc disease is present. Soft tissues: Unremarkable. IMPRESSION: 1. No evidence of acute pulmonary emboli. 2. Atherosclerotic ectatic aorta measuring up to 4.5 cm involving the ascending portion but with normal descending portion and no evidence of dissection. 3. Cardiac enlargement without active pulmonary edema THIS DOCUMENT HAS BEEN ELECTRONICALLY SIGNED BY JOSEPH COLIN MD on 03/09/2022 08:01 PM Final Signed by: Joseph Colin MD Signed (Electronic Signature): 03/09/2022 8:01 pm Vital Signs Most recent to oldest [Reference Range]: 1 2 3 Temperature Tympanic [36.6-37.9 Deg C] 36 Deg C *LOW* (03/09/22 4:49 PM) Peripheral Pulse Rate [60-100 bpm] 57 bpm *LOW* (03/09/22 8:45 PM) 55 bpm *LOW* (03/09/22 8:30 PM) 66 bpm (03/09/22 8:15 PM) Heart Rate Monitored [60-100 bpm] 60 bpm (03/09/22 8:45 PM) 57 bpm *LOW* (03/09/22 8:30 PM) 65 bpm (03/09/22 8:15 PM) Respiratory Rate [12-24 br/min] 18 br/min (03/09/22 8:45 PM) 23 br/min (03/09/22 8:30 PM) 17 br/min (03/09/22 8:15 PM) Blood Pressure [90-140/60-90 mmHg] 166/86mmHg *HI* (03/09/22 6:15 PM) 158/119mmHg *HI* (03/09/22 6:00 PM) 158/90mmHg *HI* (03/09/22 5:45 PM) Mean Arterial Pressure Cuff 106 mmHg (03/09/22 6:15 PM) 127 mmHg (03/09/22 6:00 PM) 109 mmHg (03/09/22 5:45 PM) Weight Dosing 57.15 kg (03/09/22 5:04 PM) Weight Estimated 57.15 kg (03/09/22 4:49 PM) Height/Length Dosing 147.000 cm (03/09/22 5:04 PM) Height/Length Estimated 147.000 cm (03/09/22 4:49 PM) Social History Social History Type Response Tobacco Never tobacco user T obacco Use:. Sex Hospital Discharge Instructions Patient Education 03/09/2022 19:51:55 Vertigo Vertigo Vertigo is the feeling that you or your surroundings are moving when they are not. This feeling cancome and go at any time. Vertigo often goes away on its own. Vertigo can be dangerous if it occurs while you are doing something that could endanger yourself or others, such as driving or operating machinery. Your health care provider will do tests to try to determine the cause of your vertigo. Tests will also help your health care provider decide how best to treat your condition. Follow these instructions at home: Eating and drinking ??? Dehydration can make vertigo worse. Drink enough fluid to keep your urine pale yellow. ??? Do not drink alcohol. Activity ??? Return to your normal activities as told by your health care provider. Ask your health care provider what activities are safe for you. ??? In the morning, first sit up on the side of the bed. When you feel okay, stand slowly while youhold onto something until you know that your balance is fine. ??? Move slowly. Avoid sudden body or head movements or certain positions, as told by your health care provider. ??? If you have trouble walking or keeping your balance, try using a cane for stability. If you feel dizzy or unstable, sit down right away. ??? Avoid doing any tasks that would cause danger to you or others if vertigo occurs. ??? Avoid bending down if you feel dizzy. Place items in your home so that they are easy for you toreach without bending or leaning over. ??? Do not drive or use machinery if you feel dizzy. General instructions ??? Take vcul-mah-wtguvmj and prescription medicines only as told by your health care provider. ??? Keep all follow-up visits. This is important. Contact a health care provider if: ??? Your medicines do not relieve your vertigo or they make it worse. ??? Your condition gets worse or you develop new symptoms. ??? You have a fever. ??? You develop nausea or vomiting, or if nausea gets worse. ??? Your family or friends notice any behavioral changes. ??? You have numbness or a prickling and tingling sensation in part of your body. Get help right away if you: ??? Are always dizzy or you faint. ??? Develop severe headaches. ??? Develop a stiff neck. ??? Develop sensitivity to light. ??? Have difficulty moving or speaking. ??? Have weakness in your hands, arms, or legs. ??? Have changes in your hearing or vision. These symptoms may represent a serious problem that is an emergency. Do not wait to see if the symptoms will go away. Get medical help right away. Call your local emergency services (911 in the [place] Do not drive yourself to the hospital. Summary ??? Vertigo is the feeling that you or your surroundings are moving when they are not. ??? Your health care provider will do tests to try to determine the cause of your vertigo. ??? Follow instructions for home care. You may be told to avoid certain tasks, positions, or movements. ??? Contact a health care provider if your medicines do not relieve your symptoms, or if you have afever, nausea, vomiting, or changes in behavior. ??? Get help right away if you have severe headaches or difficulty speaking, or you develop hearingor vision problems. This information is not intended to replace advice given to you by your health care provider. Make sure you discuss any questions you have with your health care provider. Document Revised: 01/22/2021 Document Reviewed: 01/22/2021 [employer] Patient Education ?? 2021 [employer]. 03/09/2022 19:51:53 Dizziness Dizziness Dizziness is a common problem. It is a feeling of unsteadiness or light- headedness. You may feel like you are about to faint. Dizziness can lead to injury if you stumble or fall. Anyone can become dizzy, but dizziness is more common in older adults. This condition can be caused by a number of things, including medicines, dehydration, or illness. Follow these instructions at home: Eating and drinking ??? Drink enough fluid to keep your urine pale yellow. This helps to keep you from becoming dehydrated. Try to drink more clear fluids, such as water. ??? Do not drink alcohol. ??? Limit your caffeine intake if told to do so by your health care provider. Check ingredients andnutrition facts to see if a food or beverage contains caffeine. ??? Limit your salt (sodium) intake if told to do so by your health care provider. Check ingredients and nutrition facts to see if a food or beverage contains sodium. Activity ??? Avoid making quick movements. ??? Rise slowly from chairs and steady yourself until you feel okay. ??? In the morning, first sit up on the side of the bed. When you feel okay, stand slowly while youhold onto something until you know that your balance is good. ??? 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 Tighten and relax the muscles in your legs while you are standing. ??? Do not drive or use machinery if you feel dizzy. ??? Avoid bending down if you feel dizzy. Place items in your home so that they are easy for you toreach without leaning over. Lifestyle ??? Do not use any products that contain nicotine or tobacco. These products include cigarettes, chewing tobacco, and vaping devices, such as e-cigarettes. If you need help quitting, ask your health care provider. ??? Try to reduce your stress level by using methods such as yoga or meditation. Talk with your health care provider if you need help to manage your stress. General instructions ??? Watch your dizziness for any changes. ??? Take arkc-rvh-rhhvuln and prescription medicines only as told by your health care provider. Talk with your health care provider if you think that your dizziness is caused by a medicine that you are taking. ??? Tell a friend or a family member that you are feeling dizzy. If he or she notices any changes in your behavior, have this person call your health care provider. ??? Keep all follow-up visits. This is important. Contact a health care provider if: ??? Your dizziness does not go away or you have new symptoms. ??? Your dizziness or light-headedness gets worse. ??? You feel nauseous. ??? You have reduced hearing. ??? You have a fever. ??? You have neck pain or a stiff neck. ??? Your dizziness leads to an injury or a fall. Get help right away if: ??? You vomit or have diarrhea and are unable to eat or drink anything. ??? You have problems talking, walking, swallowing, or using your arms, hands, or legs. ??? You feel generally weak. ??? You have any bleeding. ??? You are not thinking clearly or you have trouble forming sentences. It may take a friend or family member to notice this. ??? You have chest pain, abdominal pain, shortness of breath, or sweating. ??? Your vision changes or you develop a severe headache. These symptoms may represent a serious problem that is an emergency. Do not wait to see if the symptoms will go away. Get medical help right away. Call your local emergency services (911 in the [place] Do not drive yourself to the hospital. Summary ??? Dizziness is a feeling of unsteadiness or light-headedness. This condition can be caused by a number of things, including medicines, dehydration, or illness. ??? Anyone can become dizzy, but dizziness is more common in older adults. ??? Drink enough fluid to keep your urine pale yellow. Do not drink alcohol. ??? Avoid making quick movements if you feel dizzy. Monitor your dizziness for any changes. This information is not intended to replace advice given to you by your health care provider. Make sure you discuss any questions you have with your health care provider. Document Revised: 01/27/2021 Document Reviewed: 01/27/2021 [employer] Patient Education ?? 2021 [employer] Follow Up Care 03/09/2022 16:49:39 With:Your specialist at [facility] Address: When:1 week With:Qamar Benavides Address: [address] [address]- When:1 to 2 weeks Physician Emergency department Note * August Diggs MD: PERFORM Event Display: ED Note Physician Authored Date: [id number] MAURICIO GAYTAN :1935 Age:86 years Sex:Female Visit Date:03/09/2022 Primary Care Physician: Qamar Benavides Basic Information Time Seen: August Diggs MD / 03/09/2022 16:56 Chief Complaint Reports recently having nose bleeds but also presents with 9/10 pain on the Left of her chest. History Of Present Illness: 86-year-old female presents the ER for multiple complaints. ??The patient is a somewhat difficult historian. ??She has not no??details of her chronic??medical history.?? Chief complaint today was of nosebleed. ??She says she had 2 nosebleeds over the past??2 days that have stopped spontaneously. ??Denies any??bleeding currently.?? Otherwise she complains also of dizziness. ??She says this has been for 1 year, worse with??walking especially outside.?? Her daughter thinks this has been worse overthe past 1 month where she has had symptoms of this inside as well.?? Patient states this is worse with movement and position change. ??Denies any blurry or double vision. ??No??headaches, falls, or i njuries. ??No numbness or weakness in her arms or legs.?? Additionally she complains of left-sided chest pain below her left ribs.?? This has been present for 1 year??continuously. ??No falls or injuries. ??No anterior chest pain, shortness of breath, cough, abdominal pain, vomiting, or diarrhea.??She says she has spoken with her primary care about these complaints recently??but does not think any??testing was performed or treatment. ?? The daughter says she called [facility] and spoke with somebody from the neurosurgery office??related to her previous??aneurysm which was repaired.?? She says they were told they would like to see herin the office and update her MRI??but otherwise she should be evaluated??in the ER sooner.?? No newacute complaints today.?? 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 Additionally she has a history of Marfan's and has history of aortic root dilation.?? It appears she has had??a CTA of the chest ordered which has not beenscheduled as well as an MRI/MRA of the brain which has been ordered but not scheduled. ?? The patient??is prescribed apixaban which she thinks is for her heart. ??It appears to have beenprescribed by her interventional radiologist so presumably for her aneurysm. Review of Systems: CONSTITUTIONAL:??No fevers or chills. EYES:??No change in vision. ENT:??No sore throat. ??No headache. ??No neck pain. CARDIOVASCULAR:??No palpitations or passing out episodes. RESPIRATORY:??No cough, shortness of breath or hemoptysis. GI:??No abdominal pain. ??No nausea, vomiting or diarrhea. :??No change in urination. SKIN:??No rash. NEUROLOGIC:??No focal numbness or weakness. LYMPH:??No swelling. ?? Review of systems otherwise as stated in HPI ?? Physical Exam Vitals & Measurements T:??36?C ??(Tympanic)?? HR:??57??(Peripheral)?? HR:??60??(Monitored)?? RR:??18?? BP:??166/86?? SpO2:??96%?? HT:??147.000??cm?? WT:??57.15??kg??(Estimated)?? Pain Score:??9?? O2 Therapy:??Room air?? GENERAL:??Awake and alert. ??No acute distress. HEENT:??Normocephalic, atraumatic. ??Mucous membranes are moist. ??Left pupil is irregular like related to cataract surgery. ??Extraocular muscles are abnormal with decreased superior and lateral movement of the right eye. ??No invoked diplopia. NECK:??Supple. ??Nontender. HEART:??Regular rate and rhythm. ??S1 and S2. Chest: Reproducible tenderness to left lower costal margin. LUNGS:??Clear to auscultation bilaterally. ??No respiratory distress. ABDOMEN:??Soft, nontender, nondistended. BACK:??Normal to inspection and nontender. EXTREMITIES:??Nontender and without edema. NEUROLOGIC:??Awake, alert, and oriented x3. ??GCS 15. ??Cranial nerves symmetric??other than extraocular muscle??movements??described above.. ??Motor 5/5 in all extremities. Sensation intact to lighttouch bilaterally. ??Normal finger to nose and heel to cherry bilaterally.? SKIN:??Warm and dry. VASCULAR:??Radial 2+ bilaterally. Medical Decision Making: Dizziness, chest pain.?? Symptoms are all chronic.?? The daughter thinks her dizziness is worse over the past 1 month. ??Here she has normal neurologic exam other than weakness??with superior and lateral gaze in the right eye which they are not sure whether it is chronic or not.?? EKG does not showany acute injury pattern and troponin is negative. ??I do not suspect acute coronary syndrome giventhe chronicity and unchanged symptoms. ??CTA of the chest was obtained which shows stable aortic root??dilation which is being followed at [facility].?? She will need follow-up with her??thoracic surgeon there for ongoing surveillance and management.?? 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 She has recently spoken to her specialist at [facility] and has been ordered an outpatient MRI/MRA.?? I will push the images obtainedhere today to [facility] for their review. ??I encouraged them to call [facility] tomorrow to speak with her specialists??for further instructions, outpatient follow-up appointments, further imaging, and ongoing specialty management. ??She improved here with meclizine??and I believe is appropriate for outpatient management of her chronic issues. ??I have low suspicion for acute ischemic CVA. ??MRI is not available here today or tomorrow??and I do not see benefit to admitting her for days for these chronic symptoms.?? Discharge with outpatient specialist follow-up, return if worse. Procedure No Qualifying Data Assessment/Plan 1.??Vertigo??R42 Orders: meclizine 25 mg oral tablet, 25 mg = 1 tab, Oral, TID, PRN as needed for dizziness, # 30 tab, 0 Refill(s) XR Chest 2 Views, 03/09/22 19:31:00 EST, Stat, Reason: chest pain, Transport Mode: Cart Patient Education Vertigo Dizziness Follow Up With When Contact Information Your specialist at [facility] Within 1 week Additional Instructions: Qamar Benavides Within 1 to [address] [id number]- Additional Instructions: Medication Reconciliation New Prescription meclizine (meclizine 25 mg oral tablet)1 tab Oral (given by mouth) 3 times a day as needed as needed for dizziness. Refills: 0. ?? Unchanged apixaban ?? aspirin ?? atorvastatin ?? chlorthalidone ?? losartan ?? metoprolol (metoprolol succinate) ?? rivaroxaban (Xarelto) Problem List/Past Medical History Ongoing No qualifying data Historical No qualifying data Medication Administration Given Sodium Chloride 0.9%, 1000 mL, IV Bolus meclizine, 25 mg, Oral Allergies No active allergies Social History Electronic Cigarette/Vaping Electronic Cigarette Use: Never. Tobacco Never tobacco user Tobacco Use:. Diagnostic Results CT Angio Brain/Head 03/09/2022 19:[address] Angio Chest 03/09/2022 20:[address] Angio Neck 03/09/2022 20:[address] Angio Chest ?? 03/09/22 18:49:09 PROCEDURE INFORMATION: Exam: CTA Chest With Contrast Exam date and time: 03/09/2022 6:49 PM Age: 86 years old Clinical indication: Pain; Other: Not specified; Additional info: Chest pain ?? TECHNIQUE: Imaging protocol: Computed tomographic angiography of the chest with contrast. 3D rendering (Not supervised by radiologist): MIP and/or 3D reconstructed images were created by the technologist. Radiation optimization: All CT scans at this facility use at least one of these dose optimization techniques: automated exposure control; mA and/or kV adjustment per patient size (includes targeted exams where dose is matched to clinical indication); or iterative reconstruction. Contrast material: ISOVUE 370; Contrast volume: 100 ml; Contrast route: INTRAVENOUS (IV); ?? COMPARISON: CT ANGIO HEAD 03/03/2018 10:38 PM ?? FINDINGS: Pulmonary arteries: No focal pulmonary artery filling defect to suggest acute pulmonary embolus. Aorta: Thoracic aorta is atherosclerotic and ectatic. Ascending portion measures up to 4.5 cm. Proximal descending portion measures 2.9 cm. No evidence of dissection. Scattered atherosclerotic changes are seen in the thoracic and upper abdominal aorta. ?? Lungs: No suspicious lung mass or air space process. No central endobronchial lesion. Pleural spaces: No pleural effusion or pneumothorax. Calcified pleural plaque at the right lung apex. Heart: Multi-chamber cardiac dilatation is noted. Lymph nodes: No enlarged mediastinal lymph nodes. ?? Bones/joints: Multi-level, age-related thoracic degenerative disc disease is present. Soft tissues: Unremarkable. ?? IMPRESSION: 1. No evidence of acute pulmonary emboli. 2. Atherosclerotic ectatic aorta measuring up to 4.5 cm involving the ascending portion but with normal descending portion and no evidence of dissection. 3. Cardiac enlargement without active pulmonary edema ? THIS DOCUMENT HAS BEEN ELECTRONICALLY SIGNED BY JOSEPH COLIN MD on 03/09/2022 08:01 PM ?? Signed By: Joseph Colin MD ?? CT Angio Brain/Head ?? 03/09/22 18:49:09 PROCEDURE INFORMATION: Exam: CTA Head With Contrast, Arteriography Exam date and time: 03/09/2022 6:49 PM Age: 86 years old Clinical indication: Dizziness and giddiness; Additional info: Dizzy, HX aneurysm, right eye weakness ?? TECHNIQUE: Imaging protocol: Computed tomographic angiography of the head with contrast. Exam focused on the arteries. 3D rendering (Not supervised by radiologist): MIP and/or 3D reconstructed images were created by the technologist. Radiation optimization: All CT scans at this facility use at least one of these dose optimization techniques: automated exposure control; mA and/or kV adjustment per patient size (includes targeted exams where dose is matched to clinical indication); or iterative reconstruction. Contrast material: ISOVUE 370; Contrast volume: 100 ml; Contrast route: INTRAVENOUS (IV); ?? COMPARISON: CT ANGIO HEAD 03/03/2018 10:38 PM ?? FINDINGS: ?? ANTERIOR CIRCULATION: Right internal carotid artery: Patent right cavernous sinus right internal carotid artery stent again noted. Along stent again seen is a focal outpouching suspicious for a small residual aneurysm measuring 3 x 2 mm. Lateral to this region again seen is unchanged peripherally calcified and thrombosed aneurysm measuring 2.3 x 1.3 cm. Right middle cerebral artery: No occlusion or significant stenosis. No aneurysm. Right anterior cerebral artery: No occlusion or significant stenosis. No aneurysm. ?? Left internal carotid artery: Intracranial segment is patent with no significant stenosis. No aneurysm. Left middle cerebral artery: No occlusion or significant stenosis. No aneurysm. ?? Left anterior cerebral artery: No occlusion or significant stenosis. No aneurysm. ?? POSTERIOR CIRCULATION: Right vertebral artery: No occlusion or significant stenosis. No aneurysm. Left vertebral artery: Hypoplastic left vertebral artery again noted Basilar artery: No occlusion or significant stenosis. No aneurysm. Right posterior cerebral artery: No occlusion or significant stenosis. No aneurysm. Left posterior cerebral artery: No occlusion or significant stenosis. No aneurysm. ?? Brain: There is moderate amount of scattered areas of hypoattenuation of the supratentorial white matter, most likely secondary to microvascular ischemic changes. No acute intracranial hemorrhage. Cerebral ventricles: No ventriculomegaly. Bones/joints: Unremarkable. No acute fracture. Soft tissues: Unremarkable. ?? IMPRESSION: 1. No large vessel occlusion 2. 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 ? THIS DOCUMENT HAS BEEN ELECTRONICALLY SIGNED BY COSMO CRYSTAL MD on 03/09/2022 07:50 PM ?? Signed By: Cosmo Crystal MD ?? CT Angio Neck ?? 03/09/22 18:49:09 PROCEDURE INFORMATION: Exam: CTA Neck With Contrast Exam date and time: 03/09/2022 6:49 PM Age: 86 years old Clinical indication: Dizziness and giddiness; Additional info: Dizzy, HX aneurysm, right eye weakness ?? TECHNIQUE: Imaging protocol: Computed tomographic angiography of the neck with contrast. 3D rendering (Not supervised by radiologist): MIP and/or 3D reconstructed images were created by the technologist. Radiation optimization: All CT scans at this facility use at least one of these dose optimization techniques: automated exposure control; mA and/or kV adjustment per patient size (includes targeted exams where dose is matched to clinical indication); or iterative reconstruction. Contrast material: ISOVUE 370; Contrast volume: 100 ml; Contrast route: INTRAVENOUS (IV); ?? COMPARISON: CT ANGIO HEAD 03/03/2018 10:38 PM ?? FINDINGS: Right common carotid artery: No stenosis. No dissection or occlusion. Right internal carotid artery: No stenosis of the extracranial segment. No dissection or occlusion. Right external carotid artery: No occlusion or stenosis of the origin. ?? Left common carotid artery: No stenosis. No dissection or occlusion. Left internal carotid artery: No stenosis of the extracranial segment. No dissection or occlusion. Left external carotid artery: No occlusion or stenosis of the origin. ?? Right vertebral artery: No stenosis. No dissection or occlusion. Left vertebral artery: Hypoplastic left vertebral artery ?? Soft tissues: Normal. No significant soft tissue swelling. ?? Bones/joints: No acute fracture. ?? IMPRESSION: No stenosis or occlusion. ?? REFERENCES: NASCET CRITERIA. The degree of stenosis in the cervical segment of the internal carotid artery is based on NASCET criteria. Normal is no stenosis. Mild is less than 50% stenosis. Moderate is 50-69% stenosis. Severe is 70% to 99% stenosis. Total occlusion is no detectable patent lumen. ? THIS DOCUMENT HAS BEEN ELECTRONICALLY SIGNED BY COSMO CRYSTAL MD on 03/09/2022 08:00 PM ?? Signed By: Cosmo Crystal MD ECG Normal sinus rhythm at 63. ??No acute injury pattern. Lab Results CBC and Differential?? LATEST RESULTS?? WBC?? 03/09/22 17:30?? 7.0?? RBC?? 03/09/22 17:30?? 4.04 ??Low?? Hgb?? 03/09/22 17:30?? 12.7?? Hct?? 03/09/22 17:30?? 39.1?? MCV?? 03/09/22 17:30?? 96.8?? MCH?? 03/09/22 17:30?? 31.4 ??High?? MCHC?? 03/09/22 17:30?? 32.5?? RDW-CV?? 03/09/22 17:30?? 12.6?? Platelets?? 03/09/22 17:30?? 214?? MPV?? 03/09/22 17:30?? 10.9 ??High?? Neutro Auto?? 03/09/22 17:30?? 70.0?? Lymph Auto?? 03/09/22 17:30?? 17.9 ??Low?? [place] Auto?? 03/09/22 17:30?? 8.8?? Eos, Auto?? 03/09/22 17:30?? 2.30?? Basophil Auto?? 03/09/22 17:30?? 0.4?? Imm Gran Auto?? 03/09/22 17:30?? 0.6 ??High?? Neutro Absolute?? 03/09/22 17:30?? 4.9?? Lymph Absolute?? 03/09/22 17:30?? 1.3?? [place] Absolute?? 03/09/22 17:30?? 0.6?? Eos Absolute?? 03/09/22 17:30?? 0.2?? Baso Absolute?? 03/09/22 17:30?? 0.0?? Imm Gran Absolute?? 03/09/22 17:30?? 0.04? Routine Chemistry?? LATEST RESULTS?? Sodium Level?? 03/09/22 17:30?? 139?? Potassium Level?? 03/09/22 17:30?? 3.3 ??Low?? Chloride Level?? 03/09/22 17:30?? 99?? CO2?? 03/09/22 17:30?? 30?? Alk Phos?? 03/09/22 17:30?? 74?? AST?? 03/09/22 17:30?? 27?? ALT?? 03/09/22 17:30?? 22?? BUN?? 03/09/22 17:30?? 25?? Glucose Level?? 03/09/22 17:30?? 107 ??High?? Creatinine Level?? 03/09/22 17:30?? 0.79?? BUN/Creat Ratio?? 03/09/22 17:30?? 31.6 ??High?? eGFR AA?? 03/09/22 17:30?? 73?? eGFR Non-AA?? 03/09/22 17:30?? 73?? Calcium Level?? 03/09/22 17:30?? 9.3?? Protein Total?? 03/09/22 17:30?? 6.9?? Albumin Level?? 03/09/22 17:30?? 3.5?? Globulin?? 03/09/22 17:30?? 3.4?? A/G Ratio?? 03/09/22 17:30?? 1.0?? Bilirubin Total?? 03/09/22 17:30?? 0.8?? Anion Gap?? 03/09/22 17:30?? 10.0?? Lipase Level?? 03/09/22 17:30?? 43?? Osmolality?? 03/09/22 17:30?? 282? Cardiac Isoenzymes?? LATEST RESULTS?? Troponin-I?? 03/09/22 17:30?? 0.01? Electronically Signed on 03/09/22 08:58 PM August Diggs MD Emergency department Discharge instructions * August Diggs MD: PERFORM Event Display: ED Discharge Information Authored Date: [id number] MAURICIO GAYTAN :1935 Age:86 years Sex:Female Visit Date:03/09/2022 Primary Care Physician: Qamar Benavides Discharge Instructions We would like to thank you for allowing us to assist you with your healthcare needs. The following includes patient education materials and information regarding your injury/illness. Diagnosis from Today's Visit Vertigo Discharge Vitals Temperature??(Tympanic) 96.8 ??F (36 ??C) Heart Rate??(Peripheral) 57 Heart Rate??(Monitored) 60 Respiratory Rate?? 18 Blood Pressure?? 166/86?? Height?? 57.87 in (147.000 cm) Weight??(Estimated) 126.02 lb (57.15 kg) Allergies No active allergies What to Do Next You Need to Schedule the Following Appointments Follow Up with??Your specialist at [facility] When:??Within 1 week Follow Up with??Qamar Benavides When:??Within 1 to 2 weeks Where: [address] [id number]- You were treated today on an emergency basis; it may be villagomez to contact your primary care provider to notify them of your visit today. You may have been referred to your regular doctor or a specialist, please follow up as instructed. If your condition worsens or you can't get in to see the doctor, contact the Emergency Department. Medications What How Much When Instructions Next Dose New meclizine (meclizine 25 mg oral tablet) 1 tab Oral (given by mouth) 3 times a day as needed for as needed for dizziness Printed Prescription Unchanged apixaban Unchanged aspirin Unchanged atorvastatin Unchanged chlorthalidone Unchanged losartan Unchanged metoprolol (metoprolol succinate) Unchanged rivaroxaban (Xarelto) Education Materials Vertigo Vertigo is the feeling that you or your surroundings are moving when they are not. This feeling cancome and go at any time. Vertigo often goes away on its own. Vertigo can be dangerous if it occurs while you are doing something that could endanger yourself or others, such as driving or operating machinery. Your health care provider will do tests to try to determine the cause of your vertigo. Tests will also help your health care provider decide how best to treat your condition. Follow these instructions at home: Eating and drinking ? Dehydration can make vertigo worse. Drink enough fluid to keep your urine pale yellow. ? Do not drink alcohol. Activity ? Return to your normal activities as told by your health care provider. Ask your health care provider what activities are safe for you. ? In the morning, first sit up on the side of the bed. When you feel okay, stand slowly while you hold onto something until you know that your balance is fine. ? Move slowly. Avoid sudden body or head movements or certain positions, as told by your health care provider. ? If you have trouble walking or keeping your balance, try using a cane for stability. If you feel dizzy or unstable, sit down right away. ? Avoid doing any tasks that would cause danger to you or others if vertigo occurs. ? Avoid bending down if you feel dizzy. Place items in your home so that they are easy for you to reach without bending or leaning over. ? Do not drive or use machinery if you feel dizzy. General instructions ? Take [id number] and prescription medicines only as told by your health care provider. ? Keep all follow-up visits. This is important. Contact a health care provider if: ? Your medicines do not relieve your vertigo or they make it worse. ? Your condition gets worse or you develop new symptoms. ? You have a fever. ? You develop nausea or vomiting, or if nausea gets worse. ? Your family or friends notice any behavioral changes. ? You have numbness or a prickling and tingling sensation in part of your body. Get help right away if you: ? Are always dizzy or you faint. ? Develop severe headaches. ? Develop a stiff neck. ? Develop sensitivity to light. ? Have difficulty moving or speaking. ? Have weakness in your hands, arms, or legs. ? Have changes in your hearing or vision. These symptoms may represent a serious problem that is an emergency. Do not wait to see if the symptoms will go away. Get medical help right away. Call your local emergency services (911 in the [place] Do not drive yourself to the hospital. Summary ? Vertigo is the feeling that you or your surroundings are moving when they are not. ? Your health care provider will do tests to try to determine the cause of your vertigo. ? Follow instructions for home care. You may be told to avoid certain tasks, positions, or movements. ? Contact a health care provider if your medicines do not relieve your symptoms, or if you have a fever, nausea, vomiting, or changes in behavior. ? Get help right away if you have severe headaches or difficulty speaking, or you develop hearing or vision problems. This information is not intended to replace advice given to you by your health care provider. Make sure you discuss any questions you have with your health care provider. Document Revised: 01/22/2021 Document Reviewed: 01/22/2021 [employer] Patient Education ?? 2021 [employer] Dizziness Dizziness is a common problem. It is a feeling of unsteadiness or light- headedness. You may feel like you are about to faint. Dizziness can lead to injury if you stumble or fall. Anyone can become dizzy, but dizziness is more common in older adults. This condition can be caused by a number of things, including medicines, dehydration, or illness. Follow these instructions at home: Eating and drinking ? Drink enough fluid to keep your urine pale yellow. This helps to keep you from becoming dehydrated.Try to drink more clear fluids, such as water. ? Do not drink alcohol. ? Limit your caffeine intake if told to do so by your health care provider. Check ingredients and nutrition facts to see if a food or beverage contains caffeine. ? Limit your salt (sodium) intake if told to do so by your health care provider. Check ingredients and nutrition facts to see if a food or beverage contains sodium. Activity ? Avoid making quick movements. ? Rise slowly from chairs and steady yourself until you feel okay. ? In the morning, first sit up on the side of the bed. When you feel okay, stand slowly while you hold onto something until you know that your balance is good. ? 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 Tighten and relax the muscles in your legs while you are standing. ? Do not drive or use machinery if you feel dizzy. ? Avoid bending down if you feel dizzy. Place items in your home so that they are easy for you to reach without leaning over. Lifestyle ? Do not use any products that contain nicotine or tobacco. These products include cigarettes, chewing tobacco, and vaping devices, such as e-cigarettes. If you need help quitting, ask your health careprovider. ? Try to reduce your stress level by using methods such as yoga or meditation. Talk with your health care provider if you need help to manage your stress. General instructions ? Watch your dizziness for any changes. ? Take [id number] and prescription medicines only as told by your health care provider. Talk with your health care provider if you think that your dizziness is caused by a medicine that you are taking. ? Tell a friend or a family member that you are feeling dizzy. If he or she notices any changes in your behavior, have this person call your health care provider. ? Keep all follow-up visits. This is important. Contact a health care provider if: ? Your dizziness does not go away or you have new symptoms. ? Your dizziness or light-headedness gets worse. ? You feel nauseous. ? You have reduced hearing. ? You have a fever. ? You have neck pain or a stiff neck. ? Your dizziness leads to an injury or a fall. Get help right away if: ? You vomit or have diarrhea and are unable to eat or drink anything. ? You have problems talking, walking, swallowing, or using your arms, hands, or legs. ? You feel generally weak. ? You have any bleeding. ? You are not thinking clearly or you have trouble forming sentences. It may take a friend or family member to notice this. ? You have chest pain, abdominal pain, shortness of breath, or sweating. ? Your vision changes or you develop a severe headache. These symptoms may represent a serious problem that is an emergency. Do not wait to see if the symptoms will go away. Get medical help right away. Call your local emergency services (911 in the [place] Do not drive yourself to the hospital. Summary ? Dizziness is a feeling of unsteadiness or light-headedness. This condition can be caused by a number of things, including medicines, dehydration, or illness. ? Anyone can become dizzy, but dizziness is more common in older adults. ? Drink enough fluid to keep your urine pale yellow. Do not drink alcohol. ? Avoid making quick movements if you feel dizzy. Monitor your dizziness for any changes. This information is not intended to replace advice given to you by your health care provider. Make sure you discuss any questions you have with your health care provider. Document Revised: 01/27/2021 Document Reviewed: 01/27/2021 [employer] Patient Education ?? 2021 [employer] Tests Performed Radiology CT Angio Brain/Head 03/09/2022 19:[address] Angio Chest 03/09/2022 20:[address] Angio Neck 03/09/2022 20:00 EST Medications and Immunizations Administered Given Sodium Chloride 0.9%, 1000 mL, IV Bolus meclizine, 25 mg, Oral Lab Test Name Test Result Date/Time WBC 7.0 K/mcL 03/09/2022 17:30 EST RBC 4.04 Million/mcL 03/09/2022 17:30 EST Hgb 12.7 g/dL 03/09/2022 17:30 EST Hct 39.1 % 03/09/2022 17:30 EST MCV 96.8 fL 03/09/2022 17:30 EST MCH 31.4 pg 03/09/2022 17:30 EST MCHC 32.5 g/dL 03/09/2022 17:30 EST RDW-CV 12.6 % 03/09/2022 17:30 EST Platelets 214 K/mcL 03/09/2022 17:30 EST MPV 10.9 fL 03/09/2022 17:30 EST Neutro Auto 70.0 % 03/09/2022 17:30 EST Lymph Auto 17.9 % 03/09/2022 17:30 EST Queens Auto 8.8 % 03/09/2022 17:30 EST Eos, Auto 2.30 % 03/09/2022 17:30 EST Basophil Auto 0.4 % 03/09/2022 17:30 EST Imm Gran Auto 0.6 % 03/09/2022 17:30 EST Neutro Absolute 4.9 K/mcL 03/09/2022 17:30 EST Lymph Absolute 1.3 K/mcL 03/09/2022 17:30 EST [place] Absolute 0.6 K/mcL 03/09/2022 17:30 EST Eos Absolute 0.2 K/mcL 03/09/2022 17:30 EST Baso Absolute 0.0 K/mcL 03/09/2022 17:30 EST Imm Gran Absolute 0.04 03/09/2022 17:30 EST Sodium Level 139 mmol/L 03/09/2022 17:30 EST Potassium Level 3.3 mmol/L 03/09/2022 17:30 EST Chloride Level 99 mmol/L 03/09/2022 17:30 EST CO2 30 mmol/L 03/09/2022 17:30 EST Alk Phos 74 IntlUnit/L 03/09/2022 17:30 EST AST 27 IntlUnit/L 03/09/2022 17:30 EST ALT 22 IntlUnit/L 03/09/2022 17:30 EST BUN 25 mg/dL 03/09/2022 17:30 EST Glucose Level 107 mg/dL 03/09/2022 17:30 EST Creatinine Level 0.79 mg/dL 03/09/2022 17:30 EST BUN/Creat Ratio 31.6 03/09/2022 17:30 EST eGFR AA 73 03/09/2022 17:30 EST eGFR Non-AA 73 03/09/2022 17:30 EST Calcium Level 9.3 mg/dL 03/09/2022 17:30 EST Protein Total 6.9 g/dL 03/09/2022 17:30 EST Albumin Level 3.5 g/dL 03/09/2022 17:30 EST Globulin 3.4 03/09/2022 17:30 EST A/G Ratio 1.0 03/09/2022 17:30 EST Bilirubin Total 0.8 mg/dL 03/09/2022 17:30 EST Anion Gap 10.0 03/09/2022 17:30 EST Lipase Level 43 unit/L 03/09/2022 17:30 EST Osmolality 282 mOsm/kg 03/09/2022 17:30 EST Troponin-I 0.01 ng/mL 03/09/2022 17:30 EST Patient/Accounts Receivable Representative Signature Patient Name:MAURICIO GAYTAN I have received this information and my questions have been answered. Patient/Accounts Receivable Representative Name: Patient/Accounts Receivable Representative Signature: Relationship to Patient: Witness Name/Signature: Date: Electronically Signed on: 03/09/2022 20:55 ESTSigned by: XR Chest 2 Views * Yonathan Lambert MD: VERIFY, VERIFY Event Display: Report EXAM DESCRIPTION: XR Chest 2 Views 03/09/2022 INDICATION: CHEST PAIN COMPARISON: None IMPRESSION: Clear lungs with no focal infiltrate or pulmonary edema. Mild cardiomegaly. Fullness in the right paratracheal region consistent with aneurysmal dilatation of the ascending thoracic aorta described on CT angiography chest examination from the same date. No pleural effusion or pneumothorax Spondylotic changes of the dorsal spine. JOB #: [id number] Final Signed by: Yonahtan Lambert MD Signed (Electronic Signature): 03/10/2022 6:06 am CTA Head vessels W contrast IV * Cosmo Crystal MD: VERIFY, VERIFY Event Display: Report PROCEDURE INFORMATION: Exam: CTA Head With Contrast, Arteriography Exam date and time: 03/09/2022 6:49 PM Age: 86 years old Clinical indication: Dizziness and giddiness; Additional info: Dizzy, HX aneurysm, right eye weakness TECHNIQUE: Imaging protocol: Computed tomographic angiography of the head with contrast. Exam focused on the arteries. 3D rendering (Not supervised by radiologist): MIP and/or 3D reconstructed images were created by the technologist. Radiation optimization: All CT scans at this facility use at least one of these dose optimization techniques: automated exposure control; mA and/or kV adjustment per patient size (includes targeted exams where dose is matched to clinical indication); or iterative reconstruction. Contrast material: ISOVUE 370; Contrast volume: 100 ml; Contrast route: INTRAVENOUS (IV); COMPARISON: CT ANGIO HEAD 03/03/2018 10:38 PM FINDINGS: ANTERIOR CIRCULATION: Right internal carotid artery: Patent right cavernous sinus right internal carotid artery stent again noted. Along stent again seen is a focal outpouching suspicious for a small residual aneurysm measuring 3 x 2 mm. Lateral to this region again seen is unchanged peripherally calcified and thrombosed aneurysm measuring 2.3 x 1.3 cm. Right middle cerebral artery: No occlusion or significant stenosis. No aneurysm. Right anterior cerebral artery: No occlusion or significant stenosis. No aneurysm. Left internal carotid artery: Intracranial segment is patent with no significant stenosis. No aneurysm. Left middle cerebral artery: No occlusion or significant stenosis. No aneurysm. Left anterior cerebral artery: No occlusion or significant stenosis. No aneurysm. POSTERIOR CIRCULATION: Right vertebral artery: No occlusion or significant stenosis. No aneurysm. Left vertebral artery: Hypoplastic left vertebral artery again noted Basilar artery: No occlusion or significant stenosis. No aneurysm. Right posterior cerebral artery: No occlusion or significant stenosis. No aneurysm. Left posterior cerebral artery: No occlusion or significant stenosis. No aneurysm. Brain: There is moderate amount of scattered areas of hypoattenuation of the supratentorial white matter, most likely secondary to microvascular ischemic changes. No acute intracranial hemorrhage. Cerebral ventricles: No ventriculomegaly. Bones/joints: Unremarkable. No acute fracture. Soft tissues: Unremarkable. IMPRESSION: 1. No large vessel occlusion 2. 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 THIS DOCUMENT HAS BEEN ELECTRONICALLY SIGNED BY COSMO CRYSTAL MD on 03/09/2022 07:50 PM Final Signed by: Cosmo Crystal MD Signed (Electronic Signature): 03/09/2022 7:50 pm CTA Neck vessels W contrast IV * Cosmo Crystal MD: VERIFY, VERIFY Event Display: Report PROCEDURE INFORMATION: Exam: CTA Neck With Contrast Exam date and time: 03/09/2022 6:49 PM Age: 86 years old Clinical indication: Dizziness and giddiness; Additional info: Dizzy, HX aneurysm, right eye weakness TECHNIQUE: Imaging protocol: Computed tomographic angiography of the neck with contrast. 3D rendering (Not supervised by radiologist): MIP and/or 3D reconstructed images were created by the technologist. Radiation optimization: All CT scans at this facility use at least one of these dose optimization techniques: automated exposure control; mA and/or kV adjustment per patient size (includes targeted exams where dose is matched to clinical indication); or iterative reconstruction. Contrast material: ISOVUE 370; Contrast volume: 100 ml; Contrast route: INTRAVENOUS (IV); COMPARISON: CT ANGIO HEAD 03/03/2018 10:38 PM FINDINGS: Right common carotid artery: No stenosis. No dissection or occlusion. Right internal carotid artery: No stenosis of the extracranial segment. No dissection or occlusion. Right external carotid artery: No occlusion or stenosis of the origin. Left common carotid artery: No stenosis. No dissection or occlusion. Left internal carotid artery: No stenosis of the extracranial segment. No dissection or occlusion. Left external carotid artery: No occlusion or stenosis of the origin. Right vertebral artery: No stenosis. No dissection or occlusion. Left vertebral artery: Hypoplastic left vertebral artery Soft tissues: Normal. No significant soft tissue swelling. Bones/joints: No acute fracture. IMPRESSION: No stenosis or occlusion. REFERENCES: NASCET CRITERIA. The degree of stenosis in the cervical segment of the internal carotid artery is based on NASCET criteria. Normal is no stenosis. Mild is less than 50% stenosis. Moderate is 50-69% stenosis. Severe is 70% to 99% stenosis. Total occlusion is no detectable patent lumen. THIS DOCUMENT HAS BEEN ELECTRONICALLY SIGNED BY COSMO CRYSTAL MD on 03/09/2022 08:00 PM Final Signed by: Cosmo Crystal MD Signed (Electronic Signature): 03/09/2022 8:00 pm CTA Chest vessels W contrast IV * Joseph Colin MD: VERIFY, VERIFY Event Display: Report PROCEDURE INFORMATION: Exam: CTA Chest With Contrast Exam date and time: 03/09/2022 6:49 PM Age: 86 years old Clinical indication: Pain; Other: Not specified; Additional info: Chest pain TECHNIQUE: Imaging protocol: Computed tomographic angiography of the chest with contrast. 3D rendering (Not supervised by radiologist): MIP and/or 3D reconstructed images were created by the technologist. Radiation optimization: All CT scans at this facility use at least one of these dose optimization techniques: automated exposure control; mA and/or kV adjustment per patient size (includes targeted exams where dose is matched to clinical indication); or iterative reconstruction. Contrast material: ISOVUE 370; Contrast volume: 100 ml; Contrast route: INTRAVENOUS (IV); COMPARISON: CT ANGIO HEAD 03/03/2018 10:38 PM FINDINGS: Pulmonary arteries: No focal pulmonary artery filling defect to suggest acute pulmonary embolus. Aorta: Thoracic aorta is atherosclerotic and ectatic. Ascending portion measures up to 4.5 cm. Proximal descending portion measures 2.9 cm. No evidence of dissection. Scattered atherosclerotic changes are seen in the thoracic and upper abdominal aorta. Lungs: No suspicious lung mass or air space process. No central endobronchial lesion. Pleural spaces: No pleural effusion or pneumothorax. Calcified pleural plaque at the right lung apex. Heart: Multi-chamber cardiac dilatation is noted. Lymph nodes: No enlarged mediastinal lymph nodes. Bones/joints: Multi-level, age-related thoracic degenerative disc disease is present. Soft tissues: Unremarkable. IMPRESSION: 1. No evidence of acute pulmonary emboli. 2. Atherosclerotic ectatic aorta measuring up to 4.5 cm involving the ascending portion but with normal descending portion and no evidence of dissection. 3. Cardiac enlargement without active pulmonary edema THIS DOCUMENT HAS BEEN ELECTRONICALLY SIGNED BY JOSEPH COLIN MD on 03/09/2022 08:01 PM Final Signed by: Joseph Colin MD Signed (Electronic Signature): 03/09/2022 8:01 pm Patient Care team information Personnel Name: Qamar Benavides Address: Address: [id number] [place] [address]
[2022-06-24 15:51] LABS: Abs Immature Grans 0.03 10^3/uL (0.0-0.06); Absolute Basophil Count 0.03 10^3/uL (0.0-0.2); Absolute Eosinophil Count 0.15 10^3/uL (0.0-0.7); Absolute Lymphocyte Count 1.27 10^3/uL (1.2-3.4); Absolute Monocyte Count 0.67 10^3/uL (0.1-0.8); Absolute Neutrophil Count 5.81 10^3/uL (1.2-6.7); Basophils % 0.4; Eosinophils % 1.9; HCT 41.4 % (36.0-46.0); HGB 13.3 g/dL (11.2-15.7); Immature Grans % 0.4; MCH 30.1 pg (27.0-33.0); MCHC 32.1 % (32.0-36.0); MCV 94 fL (80-95); MPV 11.9 fL (8.0-11.0); Monocytes % 8.4; Neutrophils % 72.9; Platelet Count 182 10^3/uL (130-400); RBC 4.42 10^6/uL (3.93-5.22); RDW 13.2 % (11.7-14.6); RDW-SD 45.5 fL; WBC 7.96 10^3/uL (4.4-10.8)
[2022-06-24 16:27] LABS: ALT 30 U/L (14-59); AST 31 U/L (15-37); Albumin 3.2 g/dL (3.4-5.0); Alkaline Phosphatase 88 U/L (46-116); Anion Gap 4.5 mmol/L (3-11); BUN 16 mg/dL (7-18); Bilirubin, Total 0.8 mg/dL (0.2-1.0); CO2 33.5 mmol/L (21.0-32.0); CREATININE 0.8 mg/dL (0.55-1.02); Chloride 104 mmol/L (98-107); Estimated GFR 72.16 (mL/min/1.73m2); Glucose 91 mg/dL (74-106); Potassium 3.6 mmol/L (3.5-5.1); Sodium 142 mmol/L (136-145); TSH (W/Ref FT4) 1.75 uIU/mL (0.36-3.74); Total Protein 6.7 g/dL (6.4-8.2); Vitamin B12 501 pg/mL (193-986)
[2022-06-24 16:34] LABS: Folate > 20.0 ng/mL (8.6-20.0)
== END 2022-06-24 11:57 | disposition home or self-care (01) ==
LOC: NCHCN 11:56
PROVIDERS: PCP Internal Medicine; Visit Provider Family Medicine
DX: R41.3 Other amnesia (principal); I10 Essential (primary) hypertension; I48.91 Unspecified atrial fibrillation
CPT/HCPCS: 80053; 82607; 82746; 84443; 85025; 87086

== ENCOUNTER 2022-06-29 01:17 | Outpatient (RCR) | payer MEDICARE, SELFPAY ==
[2022-06-29] MEDS: ZOLEDRONIC ACID/MANNITOL/WATER 5 MG/100 ML BTL 300 MG IVPB (14:13)
[2022-06-29] MEDS: Normal Saline Flush 10 ML SYR IVP (14:14)
== END 2022-07-05 23:59 | disposition home or self-care (01) ==
LOC: INF 01:17
PROVIDERS: PCP Internal Medicine; Visit Provider Family Medicine
DX: M81.0 Age-related osteoporosis without current pathological fracture (principal)
CPT/HCPCS: 96365; J3489

== ENCOUNTER 2023-07-11 17:46 | Emergency (ER) | payer MEDICARE, SELFPAY ==
[2023-07-11 17:54] VITALS: BP 179/80; PULSE 64; RESP 16; TEMP 36.4; O2SAT 96
--- NOTE | 2023-07-11 18:13 | W.ED.GENAD ---
Discharge Plan Disposition Patient Disposition: Home Condition: Good Discharge Details Clinical Impression: Bleeding nose Primary Care Provider: Nato Walls ED Provider: Derrek Morrison Home Meds and New Rx's Prescriptions: No Action Tylenol PM Extra Strength 1 EACH tablet 1 ea PO PRN PRN atorvastatin 40 mg tablet 40 mg PO DAILY Patient Comments: TAKE 1 TABLET BY MOUTH ONCE DAILY metoprolol succinate 100 mg tablet extended release 24 hr 100 mg PO DAILY Patient Comments: TAKE 1 TABLET BY MOUTH TWICE DAILY omega-3 fatty acids Capsule 1 cap PO DAILY calcium carbonate-vitamin D3 [Calcium 500 With D] 500 mg(1,250mg) -400 unit Tablet 1 tab PO DAILY diclofenac sodium [Arthritis Pain (diclofenac)] 1 % Gel 1 applic TOPICAL PRN PRN Adults Multivitamin 18 mg iron-400 mcg-25 mcg Tablet 1 tab PO DAILY aspirin 81 mg tablet,chewable 81 mg PO DAILY Patient Comments: Take 1 tablet by mouth once a day with meals losartan 50 mg tablet 75 mg PO DAILY Patient Comments: take 1.5 tablets by mouth daily in the evening chlorthalidone 25 mg tablet 25 mg PO DAILY Patient Comments: Take 1 tablet by mouth every morning Xarelto 15 mg tablet 15 mg PO DAILY Patient Comments: Take 1 tablet by mouth once a day oxybutynin chloride 5 mg tablet extended release 24hr 5 mg PO DAILY Discharge Instructions Instructions: Nosebleed (ED) Additional Instructions: At this time thankfully there is no bleeding from the nose. Please apply Vaseline or triple antibiotic ointment to the inside of your nose every night and every morning. Please avoid any fans blowing on your night. Please continue to use your humidifier at all times. Please use the nose clips as directed if the bleeding returns. If you notice any worsening of your symptoms, or any new symptoms such as vomiting, diarrhea, fever, chills, shortness of breath, chest pain, numbness, weakness, or fainting , please return immediately to the emergency department for reevaluation. Please follow up with your primary care provider as soon as possible for reassessment and reevaluation. As always, it was a pleasure participating in your medical care today. Referrals: Nato Walls MD [Primary Care Provider] - [facility] General Date/Time Provider Initiated Documentation: 07/11/23 17:50. HPI Narrative: 87-year-old female with a past medical history of Xarelto, hypertension, who presents today for evaluation of nosebleed. Patient states that she had a nosebleed twice yesterday, first time was early in the night, the second was at 4 AM. They lasted about 30 minutes. She had no syncope. She was able to get it to stop on its own with pressure. She presents today here 12 hours later for further evaluation. She denies any bleeding since then. No headache or syncope. No other complaints. She does sleep with a ceiling fan on. She does have a humidifier in her room. She has no other complaints at this time. Related Data Home Medications Medication Instructions Recorded Confirmed diphenhydramine 25 1 ea PO PRN PRN 09/16/12 07/11/23 mg-acetaminophen 500 mg tablet (Tylenol PM Extra Strength) atorvastatin 40 mg tablet 40 mg PO DAILY 11/05/20 07/11/23 calcium carbonate 500 mg-vitamin 1 tab PO DAILY 11/05/20 07/11/23 D3 10 mcg (400 unit) tablet (Calcium 500 With D) diclofenac sodium 1 % topical gel 1 applic topical PRN PRN 11/05/20 07/11/23 (Arthritis Pain (diclofenac)) metoprolol succinate 100 mg 100 mg PO DAILY 11/05/20 07/11/23 tablet,extended release 24 hr multivit with minerals-iron 18 1 tab PO DAILY 11/05/20 07/11/23 mg-folic ac 400 mcg-vit K 25 mcg tablet (Adults Multivitamin) omega-3 fatty acids 1 cap PO DAILY 11/05/20 07/11/23 aspirin 81 mg chewable tablet 81 mg PO DAILY 07/11/23 07/11/23 chlorthalidone 25 mg tablet 25 mg PO DAILY 07/11/23 07/11/23 losartan 50 mg tablet 75 mg PO DAILY 07/11/23 07/11/23 oxybutynin chloride 5 mg 5 mg PO DAILY 07/11/23 07/11/23 tablet,extended release 24 hr rivaroxaban 15 mg tablet (Xarelto) 15 mg PO DAILY 07/11/23 07/11/23 Allergies Allergy/AdvReac Type Severity Reaction Status Date / Time No Known Allergies Allergy Unverified 07/11/23 17:49 General Stated Complaint: Epistaxis JEFF: 5 Review of Systems All systems reviewed & are unremarkable except as noted in HPI and below Exam Narrative Exam Narrative: 1.Const: Well-nourished, Well-developed, appearing stated age 2.Eyes: PERRL, no conjunctival injection, and symmetrical lids. 3.ENT: Atraumatic external nose and ears. Moist MM. Neck: Symmetric, trachea midline, No thyromegaly.No active bleeding. Small scab is noted in the right nare on the intranasal septum. No bleeding or clots otherwise. 4.CVS: +S1/S2, No murmurs or gallops. Peripheral pulses 2+ and equal in all extremities. Brisk capillary refill in all extremities. 5.RESP: Unlabored respiratory effort. Clear to auscultation bilaterally. No wheezes rales or rhonchi 6.GI: Soft, Nontender/Nondistended, No hepatosplenomegaly. No guarding or rebound. 7.MSK: Normocephalic/Atraumatic, Extremities w/o deformity or ttp No cyanosis or clubbing, Normal movement of all extremities 8.Skin: Warm, Dry. No rashes or lesions. 9.Neuro: napper tender II-XII grossly intact. Sensation grossly intact, no focal neurologic deficits. 10.Psych: (AAO) x3. Appropriate mood and affect Course Vital Signs Vital signs: Vital Signs Temperature 36.4 C L 07/11/23 17:54 Pulse 64 07/11/23 17:54 Respiratory Rate 16 07/11/23 17:54 Blood Pressure 179/80 H 07/11/23 17:54 Pulse Oximetry 96 07/11/23 17:54 Temperature 36.4 C L 07/11/23 17:54 Temperature Source Temporal Artery Scan 07/11/23 17:54 Pulse 64 07/11/23 17:54 Respiratory Rate 16 07/11/23 17:54 Respiratory Effort Normal, Non-Labored 07/11/23 17:56 Blood Pressure 179/80 H 07/11/23 17:54 Blood Pressure Position Sitting 07/11/23 17:54 Pulse Oximetry 96 07/11/23 17:54 Oxygen Delivery Method Room Air 07/11/23 17:54 Oxygen Flow Rate 0 07/11/23 17:54 Pain Level 1 07/11/23 17:54 Medical Decision Making 87-year-old female with a past medical history of Xarelto, hypertension, who presents today for evaluation of nosebleed. Patient states that she had a nosebleed twice yesterday, first time was early in the night, the second was at 4 AM. They lasted about 30 minutes. She had no syncope. She was able to get it to stop on its own with pressure. She presents today here 12 hours later for further evaluation. She denies any bleeding since then. No headache or syncope. No other complaints. She does sleep with a ceiling fan on. She does have a humidifier in her room. She has no other complaints at this time. No active bleeding. Small scab is noted in the right nare on the intranasal septum. No bleeding or clots otherwise. With no bleeding at this time I do not see any intervention necessary in regards to packing or [employer]. Patient otherwise looks well. Will recommend application of Vaseline to the inside of the nose twice a day, turning off all fans before bedtime, continuation of the humidifier in the bedroom, and I will give her a few nose clamps to go home with if needed. Discussed red flags which to return. I have extensively reviewed the treatment plan and discharge instructions with the patient and their family. I have addressed all patient concerns at this time. The patient and family was made aware of what symptoms to monitor for that would warrant a return to the emergency department. Discussed the plan with the patient and family, they demonstrate verbal understanding and agreement with our assessment and plan at this time. The documentation in this chart was dictated using [employer] dictation software. Please excuse any dictation errors. Quality:SDOH Health Related Social Needs: No Data to Display PFSH All Active Problems Bleeding nose (Acute) Hypertension (Chronic) Chest pain (Acute) Social History Smoking/Tobacco Use Status: Never Smoking risk assessment performed?: Yes Alcohol Intake: current Alcohol Intake frequency: holidays/special occasions only Drug use: Never Substance use type: does not use Housing: house Do you feel safe at home: Yes Do you feel safe in your relationship?: Yes Additional Social history: unable to assess privately
== END 2023-07-11 18:26 | disposition home or self-care (01) ==
PROVIDERS: Emergency Provider Student in an Organized Health Care Education/Training Program; PCP Internal Medicine
DX: R04.0 Epistaxis (principal); I10 Essential (primary) hypertension; Z79.82 Long term (current) use of aspirin; Z79.01 Long term (current) use of anticoagulants
CPT/HCPCS: 99283

== ENCOUNTER 2023-08-05 10:46 | Outpatient (REF) | payer MEDICARE, SELFPAY ==
[2023-08-05 14:48] LABS: Abs Immature Grans 0.04 10^3/uL (0.0-0.06); Absolute Basophil Count 0.04 10^3/uL (0.0-0.2); Absolute Eosinophil Count 0.19 10^3/uL (0.0-0.7); Absolute Lymphocyte Count 1.08 10^3/uL (1.2-3.4); Absolute Monocyte Count 0.65 10^3/uL (0.1-0.8); Absolute Neutrophil Count 5.86 10^3/uL (1.2-6.7); Basophils % 0.5 %; Eosinophils % 2.4 %; HCT 39.8 % (36.0-46.0); HGB 12.7 g/dL (11.2-15.7); Immature Grans % 0.5 %; Lymphocytes % 13.7 %; MCH 30.1 pg (27.0-33.0); MCHC 31.9 % (32.0-36.0); MCV 94 fL (80-95); Monocytes % 8.3 %; Neutrophils % 74.6 %; Platelet Count 182 10^3/uL (130-400); RBC 4.22 10^6/uL (3.93-5.22); RDW 13.1 % (11.7-14.6); WBC 7.86 10^3/uL (4.4-10.8)
[2023-08-05 15:30] LABS: ALT 25 U/L (14-59); AST 27 U/L (15-37); Albumin 3.3 g/dL (3.4-5.0); Alkaline Phosphatase 91 U/L (46-116); Anion Gap 8.3 mmol/L (3-11); BUN 15 mg/dL (7-18); Bilirubin, Total 0.8 mg/dL (0.2-1.0); CO2 30.7 mmol/L (21.0-32.0); CREATININE 0.8 mg/dL (0.55-1.02); Calcium 8.9 mg/dL (8.5-10.1); Chloride 98 mmol/L (98-107); Estimated GFR 71.71 (mL/min/1.73m2); Folate 13.4 ng/mL (8.6-20.0); Glucose 102 mg/dL (74-106); Potassium 3.2 mmol/L (3.5-5.1); Sodium 137 mmol/L (136-145); TSH (W/Ref FT4) 1.89 uIU/mL (0.36-3.74); Total Protein 6.7 g/dL (6.4-8.2); Vitamin B12 455 pg/mL (193-986)
== END 2023-08-05 10:47 | disposition home or self-care (01) ==
LOC: NCHCN 10:46
PROVIDERS: PCP Family Medicine; Visit Provider Family Medicine
DX: R44.1 Visual hallucinations (principal)
CPT/HCPCS: 80053; 82607; 82746; 84443; 85025

== ENCOUNTER → 2023-09-27 01:17 | Outpatient (CLI) | payer MEDICARE, SELFPAY ==
--- NOTE | 2023-09-27 15:35 | DI.CT_ITS ---
Exam(s) CT HEAD WO EXAM: CT HEAD WO CLINICAL HISTORY: VISUAL HALLUCINATIONS, R44.1. TECHNIQUE: Imaging Protocol: Axial computed tomography images with coronal and sagittal reformatted images were created and reviewed COMPARISON: MR MR BRAIN WO from 10/23/2019 FINDINGS: There are no skull fractures. There is no fluid in the visualized paranasal sinuses. There is an endovascular stent throughout the length of the intracavernous and supraclinoid right int ernal carotid artery, this coursing just medial to a peripherally calcified 2.4 x 1.8 x 1.9 cm well-d efined mass which has apparently been shown to be an aneurysm of prior imaging studies. This has not increased in size from MRI scan of 10/23/2019. It is internally hyperdense on this noninfused study . Similar findings not seen on the opposite-left side. Periventricular hypodensity consistent with chr onic small vessel disease again noted as is a lacunar infarct in the upper aspect of the right thalam us, as also evident on prior MRI scan 2019. 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 However, exhibits some in ternal hyperdensity. Recommend follow-up MRI/MRA RADIATION DOSE DELIVERED: Total DLP DATA REPOSITORY: All CT scans at this facility are submitted to the National Radiology Data Registry (NRDR) Dose Index Registry (DIR) with the [employer] ([employer]). RADIATION OPTIMIZATION: All CT scans at this facility use at least one of these dose optimization te chniques: automated exposure control; mA and/or kV adjustment per patient size (includes targeted exa ms where dose is matched to clinical indication); or iterative reconstruction.
== END ==
PROVIDERS: PCP Family Medicine; Visit Provider Family Medicine
DX: R44.1 Visual hallucinations (principal)
CPT/HCPCS: 70450

== ENCOUNTER 2024-02-07 16:21 | Emergency (ER) | payer MEDICARE, SELFPAY ==
[2024-02-07 16:24] VITALS: BP 196/102; PULSE 50; RESP 20; O2SAT 96
[2024-02-07 16:34] VITALS: O2SAT 98
--- OUTSIDE RECORDS SUMMARY | 2024-02-07 16:36 | XMS_ITS | Encounter Summary ---
Author Organization [facility] Address [facility] [place] [address] Care Team Providers Care Steam Conditioner Operator Name Role Phone Neda Keller MD Primary Care Provider Reason for Referral * Diagnostic Test (Routine) - Closed Specialty Diagnoses / Procedures Referred By Amarilis tidwell Referred To Contact Radiology Diagnoses Cerebral aneurysm without rupture Procedures MRI Angiogram Head wo Contrast (Generic) MRI Angiogram Head wwo Contrast Kash Morfin MD [facility] DIAG[place]ST[place] [address] [place] [address] Referral ID Status Reason Start Date Expiration Date V isits Requested Visits Authorized [id number] Closed Specialty Service Requested 02/09/2017 02/09/2018 2 2 Reason for Visit * Diagnostic Test (Routine) - Closed Specialty Diagnoses / Procedures Referred By Amarilis tidwell Referred To Contact Radiology Diagnoses Cerebral aneurysm without rupture Procedures MRI Angiogram Head wo Contrast (Generic) MRI Angiogram Head wwo Contrast Kash Morfin MD [facility] [place] [address] [place] [address] Referral ID Status Reason Start Date Expiration Date V isits Requested Visits Authorized [id number] Closed Specialty Service Requested 02/09/2017 02/09/2018 2 2 Encounter Details Date Type Department Care Team (Latest Contact Info) Description 08/11/2017 1:25 PM EDT - 08/11/2017 11:59 PM EDT Hospital Encounter MRI at [facility] [id number] Kash Morfin MD [facility] [id number] Cerebral aneurysm without rupture Discharge Disposition: Home Social History Tobacco Use Types Packs/Day Years Used Date Smoking Tobacco: Never Smokeless Tobacco: Never Alcohol Use Standard Drinks/Week Comments Yes 0 (1 standard drink = 0.6 oz pur e alcohol) social Sex and Gender Information Value Date Recorded Sex Assigned at Not on file Gender Identity Not on file Sexual Orientation Not on file documented as of this encounter Medications at Time of Discharge Medication Sig Dispensed Refills Start Date End Date aspirin 81 mg Tablet, Chewable Take 81 mg by mouth daily. atorvastatin (LIPITOR) 40 mg Tablet Take 40 mg by mouth daily. OMEGA-3S/DHA/EPA/FISH OIL (OMEGA 3 ORAL) Take by mouth daily. acetaminophen (TYLENOL) 325 mg Tablet Take 2 tablets by mouth every 4 hours as needed for Pain (mild pain, fever). 30 tablet 1 06/10/2016 MELATONIN ORAL Take by mouth nightly as needed. 12/17/2020 clonazePAM (KLONOPIN) 0.5 mg Tablet, Rapid Dissolve Take 0.5 mg by mouth nightly as needed. 1/4 tab 12/07/2018 dexamethasone (DECADRON) 2 mg Tablet Take 1 tablet by mouth 3 times daily (with meals). 42 tablet 06/30/2016 12/07/2018 clopidogrel (PLAVIX) 75 mg TabletIndications:pt not sure on dosage Take 1 tablet by mouth daily. Indications: pt not sure on dosage 90 tablet 3 06/10/2016 12/07/2018 meTOPROLOL tartrate (LOPRESSOR) 25 mg Tablet Take 50 mg by mouth daily. 12/17/2020 amLODIPine (NORVASC) 5 mg Tablet Take 5 mg by mouth daily. 12/07/2018 documented as of this encounter Progress Notes * Giacomo Hutchinson RN - 08/06/2017 10:14 AM EDT MRI PRE-SEDATION ASSESSMENT NOTE NAME: Lianna Yuan AGE: 81 y.o. : 1935 [address] [place] [id number] Female [phone] (home) No relevant phone numbers on file. Neda Keller MD None No Known Allergies Date/Time of call: August 06, 2017/10:14 AM/ PREVIOUS MRI SCAN? no HEIGHT: 5 WEIGHT: 125 SCHEDULED SCAN: MRI HEAD ANGIOGRAM WO CONTRAST [[id number]] SUBJECTIVE: I just get nervous CAN YOU LAY FLAT? yes AIRWAY ISSUES? Yes (but not breathing) DO YOU HAVE ANY INVOLUNTARY MOVEMENTS? (explain) no DO YOU HAVE ANY PAIN? no DO YOU TAKE PAIN MED ON A DAILY BASIS? no ASSESSMENT: PO sedation PLAN: Ativan 0.5 mg ( ksm ) You must have a [employer] driver present when you check in. This patient has been informed that they require a [employer] driver to drive them home after this procedure. In the absence of a [employer] driver, IR will not be able to sedate for your scan. Pt verbalized understanding of these instructions during the pre-procedure education via phone. Yes Glide of [employer] driver: Phone number PRIOR SCAN DATE/S SEDATION TYPE SUCCESSFUL 08/11/2017 MRI Head angiogram Ativan .05 MG PO Yes Revised 08/03/17 documented in this encounter Plan of Treatment Not on file documented as of this encounter Procedures Procedure Name Priority Date/Time Associated Diagnosis Comments MRI HEAD ANGIOGRAM WO CONTRAST Routine 08/11/2017 4:00 PM EDT Cerebral aneurysm without rupture documented in this encounter Results * MRI Angiogram Head wo Contrast (Generic) (08/11/2017 4:00 PM EDT) Anatomical Region Laterality Modality Head Magnetic Resonan ce Impressions 08/11/2017 6:33 PM EDT Flow related enhancement at the base of the giant aneurysm in the right proximal cavernous internal carotid artery consistent with recurrent or residual aneurysm. This appears similar to slightly larger than the exam of 02/08/2017. Narrative 08/11/2017 6:33 PM EDT EXAMINATION: MRI BRAIN WO CONTRAST, MRI ANGIOGRAM HEAD WO CONTRAST (GENERIC) CLINICAL HISTORY: giant cavernous aneurysm; mra with contrast (to see residual filling) but MRI brain without -- just need to see outer thrombosed aneurysm size/shape TECHNIQUE: MRI the brain noncontrast MR angiogram brain noncontrast COMPARISON: Brain MRI dated 04/06/2016 [facility] [place] 05/13/2016 Cerebral angiogram dated 02/08/2017 and 06/08/2016 FINDINGS: MRI: No restricted diffusion to suggest an acute infarct. Signal loss projecting in the area of previous giant aneurysm. No brain parenchymal signal loss on susceptibility sequence to suggest brain parenchymal hemoglobin degradation products. There is similar appearance of the size of the right-sided carotid giant ?? aneurysm, best appreciated on image 9 of series 15 measuring approximately 19 mm short axis by 26 mm long axis. Heterogeneous laminated low signal intensity in the aneurysm suggests layers of mural thrombus. There is similar pattern and extent of supratentorial white matter abnormalities with confluent FLAIR hyperintensities projecting the periventricular white matter and more patchy areas of T2 hyperintensity in centrum semiovale and subcortical regions. No mass, mass effect, midline shift or extra-axial fluid collection. Midline structures are unremarkable. MRA: Dominant right vertebral artery with diminutive left vertebral artery at ending primarily in PICA with tiny contribution of the basilar. Normal appearance of posterior circulation branches. Small right posterior communicating artery is patent. There is normal appearance of the intracranial portion of the left internal carotid artery and anterior circulation branches on the left. There is a patent anterior communicating artery. The left ANÍBAL is normal. There is patent appearance of the intracranial portion of the right internal carotid artery with a stent artifact projecting from the distal petrous right ICA through the supraclinoid right ICA. There is flow-related signal projecting at the base of the giant aneurysm measuring approximately 10 mm transverse by approximately 5 mm in length. Procedure Note Julio Cesar Urrutia MD - 08/11/2017 EXAMINATION: MRI BRAIN WO CONTRAST, MRI ANGIOGRAM HEAD WO CONTRAST(GENERIC) CLINICAL HISTORY: giant cavernous aneurysm; mra with contrast (to seeresidual filling) but MRI brain without -- just need to see outer thrombosedaneurysm size/shape TECHNIQUE: MRI the brain noncontrast MR angiogram brain noncontrast COMPARISON: Brain MRI dated 04/06/2016 [facility] [place] 05/13/2016 Cerebral angiogram dated 02/08/2017 and 06/08/2016 FINDINGS: MRI: No restricted diffusion to suggest an acute infarct. Signal loss projecting in the area of previous giant aneurysm. No brain parenchymal signal loss on susceptibility sequence to suggestbrain parenchymal hemoglobin degradation products. There is similar appearance of the size of the right-sided carotid giant aneurysm, best appreciated on image 9 of series 15 measuring [id number] mm short axis by 26 mm long axis. Heterogeneous laminated low signalintensity in the aneurysm suggests layers of mural thrombus. There is similar pattern and extent of supratentorial white matterabnormalities with confluent FLAIR hyperintensities projecting the periventricularwhite matter and more patchy areas of T2 hyperintensity in centrum semiovaleand subcortical regions. No mass, mass effect, midline shift or extra-axialfluid collection. Midline structures are unremarkable. MRA: Dominant right vertebral artery with diminutive left vertebral arteryat ending primarily in PICA with tiny contribution of the basilar. Normal appearance of posterior circulation branches. Small right posterior communicating artery is patent. There is normal appearance of the intracranial portion of the leftinternal carotid artery and anterior circulation branches on the left. There is apatent anterior communicating artery. The left ANÍBAL is normal. There is patent appearance of the intracranial portion of the rightinternal carotid artery with a stent artifact projecting from the distal petrousright ICA through the supraclinoid right ICA. There is flow-related signalprojecting at the base of the giant aneurysm measuring approximately 10 mm transverseby approximately 5 mm in length. IMPRESSION Flow related enhancement at the base of the giant aneurysm in the rightproximal cavernous internal carotid artery consistent with recurrent or residual aneurysm. This appears similar to slightly larger than the exam of02/08/2017. 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, nonruptured documented in this encounter Administered Medications Inactive Administered Medications - up to 3 most recent administrations Medication Order MAR Action Action Date Dose Rate Site LORazepam (ATIVAN) tablet 0.5 mg 0.5 mg, Oral, EVERY 30 MIN PRN, 2 doses, Starting on Wed08/06/17 at 1036, Until Nora 08/12/17 at 0437, Anxiety, Angio/IR (Day of Procedure), Routine Given 08/11/2017 1:44 PM EDT 0.5 mg documented in this encounter Care Teams Steam Conditioner Operator Relationship Specialty Start Date End Date Neda Keller MD [address] [place] [phone] PCP - General 01/28/10 03/05/22 documented as of this encounter
--- OUTSIDE RECORDS SUMMARY | 2024-02-07 16:36 | XMS_ITS | Encounter Summary ---
Author Organization [facility] Address [facility] [place] [address] Care Team Providers Care Pumper Helper Name Role Phone Neda Keller MD Primary Care Provider [phone] Reason for Visit * Reason Onset Date Comments TeleHealth 11/07/2019 Appt 11/08/19 Encounter Details Date Type Department Care Team (Late st Contact Info) Description 11/07/2019 [place] [id number] Kash Morfin MD [facility] DIAGNOSTIC [place] [address] TeleHealth (Appt 11/08/19) Social History Tobacco Use Types Packs/Day Years Used Date Smoking Tobacco: Never Smokeless Tobacco: Never Alcohol Use Standard Drinks/Week Comments Yes 0 (1 standard drink = 0.6 oz pur e alcohol) social Sex and Gender Information Value Date Recorded Sex Assigned at Not on file Gender Identity Not on file Sexual Orientation Not on file documented as of this encounter Miscellaneous Notes * Telephone Encounter - Beth Bergman CMA - 11/07/2019 11:24 AM EDT Did not speak with patient to review medications and allergies prior to upcoming tele- appointment scheduled with Neurosurgery provider. Could not reach patient. documented in this encounter Plan of Treatment Not on file documented as of this encounter Visit Diagnoses Not on filedocumented in this encounter Care Teams Pumper Helper Relationship Specialty Start Date End Date Neda Keller MD [address] [place] [address] PCP - General 01/28/10 03/05/22 documented as of this encounter
--- OUTSIDE RECORDS SUMMARY | 2024-02-07 16:36 | XMS_ITS | Encounter Summary ---
Author Organization [facility] Address [facility] [place] [address] Care Team Providers Care Brim Rounder Name Role Phone Neda Keller MD Primary Care Provider Reason for Referral * Diagnostic Test (Routine) - Specialty Diagnoses / Procedures Referred By Contac t Referred To Contact Radiology Diagnoses Cerebral aneurysm without rupture Procedures MRI Angiogram Head wo Contrast (Generic) Kash Morfin MD [facility] [place] [address] [place] [address] Referral ID Status Reason Start Date Expiration Date Visits Requested Visits Authorized [id number] Specialty Service Requested 08/12/2017 08/12/2018 1 1 * Diagnostic Test (Routine) - Closed Specialty Diagnoses / Procedures Referred By Contac t Referred To Contact Radiology Diagnoses Cerebral aneurysm without rupture Procedures MRI Brain wo Contrast Kash Morfin MD [facility] [place] [address] [place] [address] Referral ID Status Reason Start Date Expiration Date V isits Requested Visits Authorized [id number] Closed Specialty Service Requested 08/12/2017 08/12/2018 2 2 Reason for Visit * Reason Comments Follow-up Encounter Details Date Type Department Care Team (Late st Contact Info) Description 08/11/2017 4:30 PM EDT Office [place] [address] Kash Morfin MD [facility] [place] [address] Cerebral aneurysm without rupture; Diplopia Social History Tobacco Use Types Packs/Day Years Used Date Smoking Tobacco: Never Smokeless Tobacco: Never Alcohol Use Standard Drinks/Week Comments Yes 0 (1 standard drink = 0.6 oz pur e alcohol) social Sex and Gender Information Value Date Recorded Sex Assigned at Not on file Gender Identity Not on file Sexual Orientation Not on file documented as of this encounter Last Filed Vital Signs Vital Sign Reading Time Taken Comments Blood Pressure 148/94 08/11/2017 4:30 PM EDT Pulse 68 08/11/2017 4:30 PM EDT Temperature - - Respiratory Rate - - Oxygen Saturation - - Inhaled Oxygen Concentration - - Weight 58.3 kg (128 lb 8.5 oz) 08/11/2017 4:30 P M EDT Height 144.8 cm (4' 9) 08/11/2017 4:30 PM EDT Body Mass Index 27.81 08/11/2017 4:30 PM EDT documented in this encounter Progress Notes * Kash Morfin MD - 08/11/2017 4:30 PM EDT [facility] Office Note Note Author: Kash Morfin MD Chief Complaint: Cerebral aneurysm followup History of present illness: Lianna Yuan is a 81 y.o. 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 She has been doing well with no new symptoms except some greater difficulty with vision while driving. Left eye has very poor visual acuity (not noticeably changed) so doesn't notice diplopia. Current Outpatient Prescriptions on File Prior to Visit Medication Sig Dispense Refill ??? atorvastatin (LIPITOR) 40 mg Tablet Take 40 mg by mouth daily. ??? MELATONIN ORAL Take by mouth nightly as needed. ??? OMEGA-3S/DHA/EPA/FISH OIL (OMEGA 3 ORAL) Take by mouth daily. ??? acetaminophen (TYLENOL) 325 mg Tablet Take 2 tablets by mouth every 4 hours as needed for Pain (mild pain, fever). 30 tablet 1 ??? clopidogrel (PLAVIX) 75 mg Tablet Take 1 tablet by mouth daily. Indications: pt not sure on dosage 90 tablet 3 ??? aspirin 81 mg Tablet, Chewable Take 81 mg by mouth daily. ??? meTOPROLOL tartrate (LOPRESSOR) 25 mg Tablet Take 50 mg by mouth daily. ??? amLODIPine (NORVASC) 5 mg Tablet Take 5 mg by mouth daily. ??? clonazePAM (KLONOPIN) 0.5 mg Tablet, Rapid Dissolve Take 0.5 mg by mouth nightly as needed. 1/4tab ??? dexamethasone (DECADRON) 2 mg Tablet Take 1 tablet by mouth 3 times daily (with meals). (Patient not taking: Reported on 08/11/2017) 42 tablet 0 Current Facility-Administered Medications on File Prior to Visit Medication Dose Route Frequency Provider Last Rate Last Dose ??? [DISCONTINUED] LORazepam (ATIVAN) tablet 0.5 mg 0.5 mg Oral Q30 Min PRN Imelda Branch MD 0.5 mgat 08/11/17 1344 No Known Allergies Physical exam: Most Recent Vitals: 08/11/17 1630 BP: (!) 148/94 Pulse: 68 Right eye: Mild limitation of right lateral gaze (perhaps improved), persistent unchanged medial, inferior, and superior gaze limitation. Left eye: nl. Imaging studies: MRI and MR angiography shows that the overall dimenions of the aneurysm are unchanged. There is a small4 x 9 mm filling component about the parent artery that appears similar to that present on the angiogram. The distal right cavernous stenosis appears unchanged. No intracerebral edema is present. Assessment: Lianna Yuan Is clinically well now 1 year s/p Pipeline placement for right ICA aneurysm. Unfortunately the remnant aneurysm persists. I reviewed the older images and see no problem with stent-wall apposition so the reason for aneurysm persistence is unclear. Natural history is little studied and many might treat with placment of another stent, however one study out to 5 years did show additionalchance of occlusion just with time (from 90% at 1 year to 96% at 3 years). I think the chance of doing better with another stent isn't much better than this. I have therefore advised continued surveillance. Plan: Follow-up MRI/A in 6 months Continue ASA Of this 25 minute visit, 20 minutes was spent in counseling and coordination of care. documented in this encounter Plan of Treatment Not on file documented as of this encounter Results * MRI Angiogram Head wo Contrast (Generic) (02/09/2018 2:32 PM EST) Anatomical Region Laterality Modality Head Magnetic Resonan ce Impressions 02/09/2018 4:43 PM EST 1. ??Stable brain MRI examination with similar pattern of supratentorial white matter change. 2. ??Similar appearance of aneurysm mass adjacent to the right ICA. 3. ??Significant decrease in flow related signal projecting external to the stent in the cavernous region of the right ICA. Narrative 02/09/2018 4:43 PM EST EXAMINATION: MRI BRAIN WO CONTRAST, MRI ANGIOGRAM HEAD WO CONTRAST (GENERIC) CLINICAL HISTORY: s/p Pipeline rx of right cavernous ICA aneurysm; noncontrast TECHNIQUE: MRI of the brain performed without intravenous contrast administration. MRI angiogram head noncontrast COMPARISON: 08/11/2017 FINDINGS: MRI brain: No restricted diffusion to suggest acute infarct. There is similar pattern of somewhat confluent areas of T2 hyperintensity projecting the periventricular white matter and patchy areas of T2 hyperintensity in the centrum semiovale volume bilaterally. No new white matter signal abnormalities are identified. There are no cortical infarctions. There is a ??stent projecting in the right ICA with exclusion of the aneurysm previously seen. There is similar size of the aneurysm on the T2 and FLAIR sequences. No evidence of aneurysmal enlargement. There is persistent mass effect on the adjacent right temporal lobe best seen on image 7 of series 11. MRA: There is a ??pipeline stent projecting in the right cavernous and supraclinoid ICA to exclude a low giant aneurysm of the right ICA. There is flow-related signal projecting adjacent to the cavernous ICA on the right best seen on axial images 83 through 92 of series 5, significantly decreased in size compared to prior examination. There is a less than half the size of the previous exam of 08/11/2017. Procedure Note Julio Cesar Urrutia MD - 02/09/2018 EXAMINATION: MRI BRAIN WO CONTRAST, MRI ANGIOGRAM HEAD WO CONTRAST(GENERIC) CLINICAL HISTORY: s/p Pipeline rx of right cavernous ICA aneurysm;noncontrast TECHNIQUE: MRI of the brain performed without intravenous contrast administration. MRI angiogram head noncontrast COMPARISON: 08/11/2017 FINDINGS: MRI brain: No restricted diffusion to suggest acute infarct. There issimilar pattern of somewhat confluent areas of T2 hyperintensity projecting the periventricular white matter and patchy areas of T2 hyperintensity inthe centrum semiovale volume bilaterally. No new white matter signalabnormalities are identified. There are no cortical infarctions. There is a stent projecting in the right ICA with exclusion of theaneurysm previously seen. There is similar size of the aneurysm on the T2 andFLAIR sequences. No evidence of aneurysmal enlargement. There is persistent mass effect on the adjacent right temporal lobe bestseen on image 7 of series 11. MRA: There is a pipeline stent projecting in the right cavernous and supraclinoid ICA to exclude a low giant aneurysm of the right ICA. Thereis flow-related signal projecting adjacent to the cavernous ICA on the rightbest seen on axial images 83 through 92 of series 5, significantly decreased insize compared to prior examination. There is a less than half the size of the previous exam of 08/11/2017. IMPRESSION 1. Stable brain MRI examination with similar pattern of supratentorialwhite matter change. 2. Similar appearance of aneurysm mass adjacent to the right ICA. 3. Significant decrease in flow related signal projecting external to thestent in the cavernous region of the right ICA. 4:43 PM Kash Morfin MD [facility] [place] * MRI Brain wo Contrast (02/09/2018 2:32 PM EST) Anatomical Region Laterality Modality Head Magnetic Resonan ce Impressions 02/09/2018 4:43 PM EST 1. ??Stable brain MRI examination with similar pattern of supratentorial white matter change. 2. ??Similar appearance of aneurysm mass adjacent to the right ICA. 3. ??Significant decrease in flow related signal projecting external to the stent in the cavernous region of the right ICA. Narrative 02/09/2018 4:43 PM EST EXAMINATION: MRI BRAIN WO CONTRAST, MRI ANGIOGRAM HEAD WO CONTRAST (GENERIC) CLINICAL HISTORY: s/p Pipeline rx of right cavernous ICA aneurysm; noncontrast TECHNIQUE: MRI of the brain performed without intravenous contrast administration. MRI angiogram head noncontrast COMPARISON: 08/11/2017 FINDINGS: MRI brain: No restricted diffusion to suggest acute infarct. There is similar pattern of somewhat confluent areas of T2 hyperintensity projecting the periventricular white matter and patchy areas of T2 hyperintensity in the centrum semiovale volume bilaterally. No new white matter signal abnormalities are identified. There are no cortical infarctions. There is a ??stent projecting in the right ICA with exclusion of the aneurysm previously seen. There is similar size of the aneurysm on the T2 and FLAIR sequences. No evidence of aneurysmal enlargement. There is persistent mass effect on the adjacent right temporal lobe best seen on image 7 of series 11. MRA: There is a ??pipeline stent projecting in the right cavernous and supraclinoid ICA to exclude a low giant aneurysm of the right ICA. There is flow-related signal projecting adjacent to the cavernous ICA on the right best seen on axial images 83 through 92 of series 5, significantly decreased in size compared to prior examination. There is a less than half the size of the previous exam of 08/11/2017. Procedure Note Julio Cesar Urrutia MD - 02/09/2018 EXAMINATION: MRI BRAIN WO CONTRAST, MRI ANGIOGRAM HEAD WO CONTRAST(GENERIC) CLINICAL HISTORY: s/p Pipeline rx of right cavernous ICA aneurysm;noncontrast TECHNIQUE: MRI of the brain performed without intravenous contrast administration. MRI angiogram head noncontrast COMPARISON: 08/11/2017 FINDINGS: MRI brain: No restricted diffusion to suggest acute infarct. There issimilar pattern of somewhat confluent areas of T2 hyperintensity projecting the periventricular white matter and patchy areas of T2 hyperintensity inthe centrum semiovale volume bilaterally. No new white matter signalabnormalities are identified. There are no cortical infarctions. There is a stent projecting in the right ICA with exclusion of theaneurysm previously seen. There is similar size of the aneurysm on the T2 andFLAIR sequences. No evidence of aneurysmal enlargement. There is persistent mass effect on the adjacent right temporal lobe bestseen on image 7 of series 11. MRA: There is a pipeline stent projecting in the right cavernous and supraclinoid ICA to exclude a low giant aneurysm of the right ICA. Thereis flow-related signal projecting adjacent to the cavernous ICA on the rightbest seen on axial images 83 through 92 of series 5, significantly decreased insize compared to prior examination. There is a less than half the size of the previous exam of 08/11/2017. IMPRESSION 1. Stable brain MRI examination with similar pattern of supratentorialwhite matter change. 2. Similar appearance of aneurysm mass adjacent to the right ICA. 3. Significant decrease in flow related signal projecting external to thestent in the cavernous region of the right ICA. 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
--- OUTSIDE RECORDS SUMMARY | 2024-02-07 16:36 | XMS_ITS | Encounter Summary ---
Author Organization [facility] Address [facility] [place] [address] Care Team Providers Care Supply Coordinator Name Role Phone Neda Keller MD Primary Care Provider [phone] Encounter Details Date Type Department Care Team (Late st Contact Info) Description 02/08/2017 11:30 AM EST - 02/08/2017 1:30 [place] [phone] Kash Morfin MD [facility] [place] [address] @TRANSCATHETER OCCLUSION/EMBOLIZATION FOR TUMOR DESTRUCTION (WRU 20.12) Social History Tobacco Use Types Packs/Day Years [...] Sign Reading Time Taken Comments Blood Pressure 158/88 02/08/2017 11:38 AM EST Pulse 65 02/08/2017 11:38 AM EST Temperature 36.4 ??C (97.5 ??F) 02/08/2017 11:[address] Respiratory Rate 16 02/08/2017 11:38 AM EST Oxygen Saturation 97% 02/08/2017 11:38 AM EST Inhaled Oxygen Concentration - - Weight 57.3 kg (126 lb 4.8 oz) 02/08/2017 12:03 PM EST Height 147.3 cm (4' 10) 02/08/2017 11:38 AM EST Body Mass Index 26.4 02/08/2017 11:38 AM EST documented in this encounter Medications at Time of Discharge [...] as of this encounter Progress Notes * Jenny Oliva RN - 02/08/2017 2:16 PM EST 1350 called IR lab; reached nurse. Patient needs 2 hours bedrest, ending at 1335. Dr. Mccallum will be coming up to discuss further with patient, Daughter here at [address] Dr. Mccallum in to see patient at [address] Mccallum provided patient office or inpatient note with discharge instructions. Document did include elements from post-anesthesia instructions as well as actions indicated for femoral artery bleeding. I demonstrated to patient assessment of puncture site periphery- no bulging, no bruising, no firmness around the site. Bruise left hand (small) fading & greenish color indicates not recent. 1535 patient on bedpan, IV capped 1535 patient ambulated; insertion site intact, no bleeding, patient independently walked. Urinated again, moderate, discharged with daughter. NSD documented in this encounter Plan of Treatment Not on file documented as of this encounter Procedures Procedure Name Priority Date/Time Associated Diagnosis Comments @TRANSCATHETER OCCLUSION/EMBOLIZATION FOR TUMOR DESTRUCTION (WRVU 20.12) 02/08/2017 7:30 PM EST Cerebral Angiogram documented in this encounter Visit Diagnoses Not on filedocumented in this encounter Active and Recently Administered Medications Times are shown in EST. Continuous Medication Order 02/06/2017 02/07/2017 02/08/2017 lactated Ringers infusion 1,000 mL (CANCELED) 1,000 mL, at 100 mL/hr, Intravenous, CONTINUOUS, Starting on Wed02/08/17 at 1215, Until Wed02/08/17 at 1525, Day of Surgery (Day of Procedure) 1217 (New Bag - Prov ider: Vasquez Vela)1306 (Anesthesia Volume Adjustment - Provider: Vasquez Vela) documented in this encounter Care Teams Supply Coordinator Relationship Specialty Start Date End Date Neda Keller MD [address] [place] [address] PCP - General 01/28/10 03/05/22 documented as of this encounter
--- OUTSIDE RECORDS SUMMARY | 2024-02-07 16:36 | XMS_ITS | Encounter Summary ---
Author Organization [facility] Address [facility] [place] [address] Care Team Providers Care Asic Engineer Name Role Phone Neda Keller MD Primary Care Provider [phone] Reason for Visit * Diagnostic Test (Routine) - Closed Specialty Diagnoses / Procedures Referred By Johnnaac yaw Referred To Contact Radiology Diagnoses Cerebral aneurysm without rupture Procedures MRI Angiogram Head wo Contrast (Generic) MRI Angiogram Head wwo Contrast Kash Morfin MD [facility] [place] [address] [place] [address] Referral ID Status Reason Start Date Expiration Date V isits Requested Visits Authorized [id number] Closed Specialty Service Requested 02/09/2017 02/09/2018 2 2 Encounter Details Date Type Department Care Team (Latest Contact Info) Description 08/11/2017 1:25 PM EDT - 08/11/2017 11:59 PM EDT Hospital [place] [address] Kash Morfin MD [facility] [place] [address] Cerebral aneurysm without rupture Discharge Disposition: Home [...] 0.5 mg by mouth nightly as needed. 03/11 tab 12/07/2018 dexamethasone (DECADRON) 2 mg Tablet [...] daily. 12/07/2018 documented as of this encounter Plan of Treatment Not on file documented as of this encounter Procedures Procedure Name Priority Date/Time Associated Diagnosis Comments MRI HEAD ANGIOGRAM WO CONTRAST Routine 08/11/2017 4:00 PM EDT Cerebral aneurysm without rupture MRI BRAIN WO CONTRAST Routine 08/11/2017 4:00 PM EDT Cerebral aneurysm without rupture documented in this encounter Results * MRI Brain wo Contrast (08/11/2017 4:00 PM EDT) Anatomical Region Laterality [...] noncontrast COMPARISON: Brain MRI dated 04/06/2016 [facility] 05/13/2016 Cerebral angiogram dated 02/08/2017 [...] noncontrast COMPARISON: Brain MRI dated 04/06/2016 [facility] 05/13/2016 Cerebral angiogram dated 02/08/2017 [...] on image 9 of series 15 measuring [id number] mm short axis by 26 mm long [...] exam of02/08/2017. 6:33 PM Kash Morfin MD IMG MRI ORDERABLES documented in this encounter Visit Diagnoses Diagnosis Cerebral aneurysm without rupture Cerebral aneurysm, nonruptured documented in this encounter Care Teams Asic Engineer Relationship Specialty Start Date End Date Neda Keller MD [address] [place] [address] PCP - General 01/28/10 03/05/22 documented as of this encounter
--- OUTSIDE RECORDS SUMMARY | 2024-02-07 16:36 | XMS_ITS | Encounter Summary ---
Author Organization [facility] Address [facility] [place] [address] Care Team Providers Care Poultry Offal Worker Name Role Phone Neda Keller MD Primary Care Provider [phone] Reason for Visit * Consultation (Routine) - Closed Specialty Diagnoses / Procedures Referred By Amarilis tidwell Referred To Contact Cardiac Surgery Diagnoses Thoracic Aortic aneurysm Procedures Jay Vergara MD [address] [place] [address] Kvng Hobbs MD [facility] [place] [address] Referral ID Status Reason Start Date Expiration Date Visits Re quested Visits Authorized [id number] Closed 12/10/2020 12/10/2021 1 1 Encounter Details Date Type Department Care Team (Late st Contact Info) Description 12/17/2020 10:20 AM EDT Office Visit [place] [phone] Kvng Hobbs MD 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 She has a moderate size asx ascending aorta of about 4.5 cm. This does not have a pear shape of a marfans root aneurysm Plan: Will need to perform a CT with contrast to further define this. 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
--- OUTSIDE RECORDS SUMMARY | 2024-02-07 16:36 | XMS_ITS | Encounter Summary ---
Author Organization [facility] Address [facility] [place] [address] Care Team Providers Care Product Safety Professional Name Role Phone Neda Keller MD Primary Care Provider [phone] Encounter Details Date Type Department Care Team (Late st Contact Info) Description 11/05/2020 12:05 AM EDT Ancillary Procedure Radiology [facility] at [facility] [place] [phone] Neda Keller MD [address] [place] [phone] Social History Tobacco Use Types Packs/Day Years Used Date Smoking Tobacco: Never Smokeless Tobacco: Never Alcohol Use Standard Drinks/Week Comments Yes 0 (1 standard drink = 0.6 oz pur e alcohol) social Sex and Gender Information Value Date Recorded Sex Assigned at Not on file Gender Identity Not on file Sexual Orientation Not on file documented as of this encounter Plan of Treatment Not on file documented as of this encounter Procedures Procedure Name Priority Date/Time Associated Diagnosis Comments FILM LIBRARY STORAGE ONLY DX CHEST Routine 11/05/2020 12:05 AM EDT documented in this encounter Results * Film Library- Storage Only DX Chest (11/05/2020 12:05 AM EDT) Narrative [facility] [place] - 12/03/2020 3:52 PM EDT This exam is auto-finalizing. It's purpose is for storage only. Neda Keller MD IMG FILM LIBRARY ORD ERABLES [facility] [place], [place] documented in this encounter Visit Diagnoses Not on filedocumented in this encounter Care Teams Product Safety Professional Relationship Specialty Start Date End Date Neda Keller MD [address] [place] [phone] PCP - General 01/28/10 03/05/22 documented as of this encounter
--- OUTSIDE RECORDS SUMMARY | 2024-02-07 16:36 | XMS_ITS | Encounter Summary ---
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 Procedures MRI Brain wo Contrast Kash Morfin MD [facility] [place] [address] [place] [address] Referral ID Status Reason Start Date Expiration Date V isits Requested Visits Authorized [id number] Closed Specialty Service Requested 02/09/2018 02/09/2019 1 1 * Diagnostic Test (Routine) - Specialty Diagnoses / Procedures Referred By Contoziel t Referred To Contact Radiology Diagnoses 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 Procedures MRI Angiogram Head wo Contrast (Generic) Kash Morfin MD [facility] [place] [address] [place] [address] Referral ID Status Reason Start Date Expiration Date Visits Requested Visits Authorized [id number] Specialty Service Requested 02/09/2018 02/09/2019 1 1 Reason for Visit * Reason Comments Follow-up s/p Rt ICA pipeline aneurysm stent with imaging prior Encounter Details Date Type Department Care Team (Late st Contact Info) Description 02/09/2018 4:30 PM EST Office [place] [address] Kash Morfin MD [facility] [place] [address] 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 Social History Tobacco Use Types Packs/Day Years [...] Sign Reading Time Taken Comments Blood Pressure 125/72 02/09/2018 3:45 PM EST Pulse 56 02/09/2018 3:45 PM EST Temperature - - Respiratory Rate - - Oxygen Saturation - - Inhaled Oxygen Concentration - - Weight 57.6 kg (126 lb 15.8 oz) 02/09/2018 3:45 PM EST Height 147.3 cm (4' 10) 02/09/2018 3:45 PM EST Body Mass Index 26.54 02/09/2018 3:45 PM EST documented in this encounter Progress Notes * Kash Morfin MD - 02/09/2018 4:30 PM EST Interventional Neuroradiology Clinic Office Note Note Author: Kash Morfin MD Chief Complaint: Cerebral aneurysm followup History of present illness: Lianna Yuan is a 82 y.o. 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 She has diminished headaches and less problem with visionin her right eye. She does report poor vision in the left eye, chiefly blurriness. Current Outpatient Medications on File Prior to Visit Medication Sig Dispense Refill ??? diphenhydrAMINE (BENADRYL) 25 mg Capsule Take 25 mg by mouth every 6 hours as needed for Itching. ??? atorvastatin (LIPITOR) 40 mg Tablet Take 40 mg by mouth daily. ??? clonazePAM (KLONOPIN) 0.5 mg Tablet, Rapid Dissolve Take 0.5 mg by mouth nightly as needed. 1/4tab ??? OMEGA-3S/DHA/EPA/FISH OIL (OMEGA 3 ORAL) Take by mouth daily. ??? acetaminophen (TYLENOL) 325 mg Tablet Take 2 tablets by mouth every 4 hours as needed for Pain (mild pain, fever). 30 tablet 1 ??? clopidogrel (PLAVIX) 75 mg Tablet Take 1 tablet by mouth daily. Indications: pt not sure on dosage (Patient taking differently: Take 75 mg by mouth daily. 1.5 tablets daily Indications: pt not sure on dosage) 90 tablet 3 ??? aspirin 81 mg Tablet, Chewable Take 81 mg by mouth daily. ??? meTOPROLOL tartrate (LOPRESSOR) 25 mg Tablet Take 50 mg by mouth daily. ??? amLODIPine (NORVASC) 5 mg Tablet Take 5 mg by mouth daily. ??? MELATONIN ORAL Take by mouth nightly as needed. ??? dexamethasone (DECADRON) 2 mg Tablet Take 1 tablet by mouth 3 times daily (with meals). (Patient not taking: Reported on 08/11/2017) 42 tablet 0 No current facility-administered medications on file prior to visit. No Known Allergies Physical exam: Most Recent Vitals: 02/09/18 1545 BP: 125/72 Pulse: 56 Mild right CN , III palsy. Mild ptosis Right eye visual acuity is good enough to read 14 point text without difficulty. Left eye vision ismarkedly impaired No facial droop or sensory loss Imaging studies: MR angiography shows that there is much less aneurysm opacifiction with only a small remnant present. MRI shows that the overall size of the aneurysm is slightly decreased. Assessment: Lianna Yuan Is doing better at this point and the aneurysm appears to finally be getting a bit smaller. A small remnant is present. Plan: Follow-up MRA/I in 1 year Continue ASA Follow up with planned ophthalmology visit. Of this 15 minute visit, 15 minutes was spent in counseling and coordination of care. documented in this encounter Plan of Treatment Not on file documented as of this encounter Results * MRI Brain wo Contrast (12/07/2018 2:05 PM EDT) Anatomical Region Laterality Modality Head Magnetic Resonan ce Impressions 12/07/2018 4:19 PM EDT Unchanged appearance of the brain. No acute infarction. Thank you for letting us participate in the care of this patient. For questions regarding this report, please contact the number below. ? Narrative 12/07/2018 4:19 PM EDT EXAMINATION: MRI BRAIN WO CONTRAST CLINICAL HISTORY: right cavernous aneurysm s/p Pipeline TECHNIQUE: MRI of the brain performed without intravenous contrast administration. COMPARISON: MRI 02/09/2018 FINDINGS: No acute infarction or new mass effect. Unchanged sites and confluent regions of subcortical white matter T2 prolongation. Unchanged right thalamic chronic lacunar infarction. Ventricles and extra axial spaces are unchanged. Procedure Note Manuel Nair MD - 12/07/2018 EXAMINATION: MRI BRAIN WO CONTRAST CLINICAL HISTORY: right cavernous aneurysm s/p Pipeline TECHNIQUE: MRI of the brain performed without intravenous contrast administration. COMPARISON: MRI 02/09/2018 FINDINGS: No acute infarction or new mass effect. Unchanged sites and confluentregions of subcortical white matter T2 prolongation. Unchanged right thalamicchronic lacunar infarction. Ventricles and extra axial spaces are unchanged. IMPRESSION Unchanged appearance of the brain. No acute infarction. Thank you for letting us participate in the care of this patient. Forquestions regarding this report, please contact the number below. Kash Morfin MD IMG MRI ORDERABLES * MRI Angiogram Head wo Contrast (Generic) (12/07/2018 2:05 PM EDT) Anatomical Region Laterality Modality Head Magnetic Resonan ce Impressions 12/07/2018 4:49 PM EDT Unchanged flow related signal projecting at the base of the right cavernous aneurysm. Thank you for letting us participate in the care of this patient. For questions regarding this report, please contact the number below. ? Narrative 12/07/2018 4:49 PM EDT EXAMINATION: MRI ANGIOGRAM HEAD WO CONTRAST (GENERIC) CLINICAL HISTORY: right cavernous aneurysm s/p Pipeline TECHNIQUE: MRA of the head performed without contrast. 3-D MIP reconstructions were created. COMPARISON: MRA 02/09/2018 and 08/11/2017 FINDINGS: Unchanged filling of the base of the right cavernous aneurysm measuring 5 mm. Unchanged distal left ICA. No evidence of interval thrombosis. Procedure Note Manuel Nair MD - 12/07/2018 EXAMINATION: MRI ANGIOGRAM HEAD WO CONTRAST (GENERIC) CLINICAL HISTORY: right cavernous aneurysm s/p Pipeline TECHNIQUE: MRA of the head performed without contrast. 3-D MIP reconstructions were created. COMPARISON: MRA 02/09/2018 and 08/11/2017 FINDINGS: Unchanged filling of the base of the right cavernous aneurysm measuring 5mm. Unchanged distal left ICA. No evidence of interval thrombosis. IMPRESSION Unchanged flow related signal projecting at the base of the rightcavernous aneurysm. Thank you for letting us participate in the care of this patient. Forquestions regarding this report, please contact the number below. 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
--- OUTSIDE RECORDS SUMMARY | 2024-02-07 16:36 | XMS_ITS | Encounter Summary ---
Author Organization [facility] Address [facility] [place] [address] Care Team Providers Care Biodiesel Operations Manager Name Role Phone Qamar Benavides MD Primary Care Provider [phone] Encounter Details Date Type Department Care Team (Late st Contact Info) Description 03/09/2022 10:35 PM EST Ancillary Procedure Radiology Library [place] [facility] [place] [phone] Qamar Benavides MD [address] [place] [address] Social History Tobacco Use Types Packs/Day Years [...] FILM LIBRARY STORAGE ONLY DX CHEST Routine 03/09/2022 10:21 PM EST documented in this encounter Results * Film Library- Storage Only DX Chest (03/09/2022 10:21 PM EST) Narrative [facility] - 03/09/2022 10:21 PM EST This exam is auto-finalizing. It's purpose is for storage only. Qamar Benavides MD [facility] FILM LIBRARY ORD ERABLES [place], [place] documented in this encounter Visit Diagnoses Not on filedocumented in this encounter Care Teams Biodiesel Operations Manager Relationship Specialty Start Date End Date Qamar Benavides MD [address] [place] [address] PCP - General Family Medicine 03/06/22 documented as of this encounter
--- OUTSIDE RECORDS SUMMARY | 2024-02-07 16:36 | XMS_ITS | Encounter Summary ---
Author Organization [facility] Address [facility] [place] [address] Care Team Providers Care Development Specialist Name Role Phone Qamar Benavides MD Primary Care Provider [phone] Encounter Details Date Type Department Care Team (Late st Contact Info) Description 03/10/2022 Telephone Neurosurgery at [facility] [place] [address] Nataliia Pereyra RN Social History Tobacco Use Types Packs/Day Years [...] encounter Miscellaneous Notes * Telephone Encounter - Jannet Phillips - 03/11/2022 2:35 PM EST Per Shruti's note sent request to cancel MRA and LM for pt to notify of this change. Please CANCEL MRA head scheduled on 04/02/22 per provider it is no longer needed. * Telephone Encounter - Jannet Phillips - 03/11/2022 11:04 AM EST RN, ED notes from 03/09/[address] [facility] is in edh. Thank you, Bushra * Telephone Encounter - Jannet Phillips - 03/10/2022 3:28 PM EST Sent request for ED note from [facility] [[phone]] * Telephone Encounter - Nataliia Pereyra RN - 03/10/2022 11:56 AM EST Copied from [facility] #[id number]. Topic: Specialty Dept CRMs - Generic Call >> Mar 10, 2022 10:01 AM Alexandrea Avila wrote: Specialist: Kash Morfin Relationship (if other than patient-full name): Shannan Villalta - daughter Reason for Call: In reference to CRM 03/03, Shannan wants to let the team know that patient ended upat ED [facility] last night 03/09 for dizziness and did CT Scan . [facility] is sending the ED notes to [facility] will call back to schedule f/up / MRI. >> Mar 10, 2022 10:10 AM Raisa Rowland wrote: FYI- please let secretaries know if anything further is needed CTH from [place] in EDH documented in this encounter Plan of Treatment Not on file documented as of this encounter Visit Diagnoses Not on filedocumented in this encounter Care Teams Development Specialist Relationship Specialty Start Date End Date Qamar Benavides MD [address] [place] [address] PCP - General Family Medicine 03/06/22 documented as of this encounter
--- OUTSIDE RECORDS SUMMARY | 2024-02-07 16:36 | XMS_ITS | Encounter Summary ---
Author Organization [facility] Address [facility] [place] [address] Care Team Providers Care Inside Solar Sales Consultant Name Role Phone Neda Keller MD Primary Care Provider Encounter Details Date Type Department Care Team (Late st Contact Info) Description 11/05/2020 Ancillary Procedure Radiology Library at [facility] [place] [phone] Neda Keller MD [address] [place] [phone] Social History Tobacco Use Types Packs/Day Years [...] Associated Diagnosis Comments FILM LIBRARY STORAGE ONLY CT CHEST Routine 11/05/2020 12:00 AM EDT documented in this encounter Results * Film Library- Storage Only CT Chest (11/05/2020 12:00 AM EDT) Narrative [facility] - 12/03/2020 3:38 PM EDT This exam is auto-finalizing. It's purpose is for storage only. Neda Keller MD G FILM LIBRARY ORD ERABLES [facility] [place], [place] documented in this encounter Visit Diagnoses Not on filedocumented in this encounter Care Teams Inside Solar Sales Consultant Relationship Specialty Start Date End Date Neda Keller MD [address] [place] [phone] PCP - General 01/28/10 03/05/22 documented as of this encounter
--- OUTSIDE RECORDS SUMMARY | 2024-02-07 16:36 | XMS_ITS | Encounter Summary ---
Author Organization [facility] Address [facility] [place] [address] Care Team Providers Care C Java Developer Name Role Phone Neda Keller MD Primary Care Provider [phone] Encounter Details Date Type Department Care Team (Late st Contact Info) Description 03/03/2022 Telephone Neurosurgery at [facility] [place] [address] Nataliia Pereyra RN Social History [...] encounter Miscellaneous Notes * Telephone Encounter - Nataliia Pereyra RN - 03/03/2022 9:58 AM EST Copied from [facility] #[id number]. Topic: Specialty Dept CRMs - Orders >> Mar 03, 2022 9:45 AM Eros Perkins wrote: Orders Request Specialist: Kash Morfin MD Relationship (if other than patient-full name): Lianna Mosleykailey and daughter Shannan Villalta Type of Request: [x] Input orders Type/Name of Order: Imaging If Labs and Imaging list name of specific test(s): MRI or MRA, [facility] Date of Lab/Imaging/Testing Appt: Date of Provider Appt: 11/08/19 Appt Type with Provider: FUV Patient Requesting to Have Orders Sent to Facility Outside of [facility]: No documented in this encounter Plan of Treatment Not on file documented as of this encounter Visit Diagnoses Not on filedocumented in this encounter Care Teams C Java Developer Relationship Specialty Start Date End Date Neda Keller MD [address] [place] [address] PCP - General 01/28/10 03/05/22 documented as of this encounter
--- OUTSIDE RECORDS SUMMARY | 2024-02-07 16:36 | XMS_ITS | Encounter Summary ---
Author Organization [facility] Address [facility] [place] [address] Care Team Providers Care Shadow Graph Weight Operator Name Role Phone Neda Keller MD Primary Care Provider Reason for Referral * Diagnostic Test (Routine) - Specialty Diagnoses / Procedures Referred By Contac t Referred To Contact Radiology Diagnoses Cerebral aneurysm without rupture Procedures MRI Angiogram Head wo Contrast (Generic) Kash Morfin MD [facility] [place] [address] [place] [address] Referral ID Status Reason Start Date Expiration Date Visits Requested Visits Authorized [id number] Specialty Service Requested 08/12/2017 08/12/2018 1 1 * Diagnostic Test (Routine) - Closed Specialty Diagnoses / Procedures Referred By Contac t Referred To Contact Radiology Diagnoses Cerebral aneurysm without rupture Procedures MRI Brain wo Contrast Kash Morfin MD [facility] [place] [address] [place] [address] Referral ID Status Reason Start Date Expiration Date V isits Requested Visits Authorized [id number] Closed Specialty Service Requested 08/12/2017 08/12/2018 2 2 Reason for Visit * Diagnostic Test (Routine) - Closed Specialty Diagnoses / Procedures Referred By Contoziel t Referred To Contact Radiology Diagnoses Cerebral aneurysm without rupture Procedures MRI Brain wo Contrast Kash Morfin MD [facility] [place] [address] [facility] [place] [address] Referral ID Status Reason Start Date Expiration Date V isits Requested Visits Authorized [id number] Closed Specialty Service Requested 08/12/2017 08/12/2018 2 2 Encounter Details Date Type Department Care Team (Latest Contact Info) Description 02/09/2018 12:16 PM EST Hospital [place] [address] Kash Morfin MD [facility] [place] [address] Cerebral aneurysm without rupture Discharge [...] Comments MRI HEAD ANGIOGRAM WO CONTRAST Routine 02/09/2018 2:32 PM EST Cerebral aneurysm without rupture MRI BRAIN WO CONTRAST Routine 02/09/2018 2:32 PM EST Cerebral aneurysm without rupture documented in this [...] right ICA. 4:43 PM Kash Morfin MD IM MRI ORDERABLES * MRI Brain wo Contrast [...] right ICA. 4:43 PM Kash Morfin MD IM MRI ORDERABLES documented in this encounter Visit Diagnoses Diagnosis Cerebral aneurysm without rupture Cerebral aneurysm, nonruptured documented in this encounter Care Teams Shadow Graph Weight Operator Relationship Specialty Start Date End Date Neda Keller MD [address] [place] [phone] PCP - General 01/28/10 03/05/22 documented as of this encounter
--- OUTSIDE RECORDS SUMMARY | 2024-02-07 16:36 | XMS_ITS | Encounter Summary ---
Author Organization [facility] Address [facility] [place] [address] Care Team Providers Care Molecular Modeler Name Role Phone Neda Keller MD Primary Care Provider Encounter Details Date Type Department Care Team (Late st Contact Info) Description 10/18/2019 Telephone Neurosurgery at [facility] [place] [place] [address] Raisa Rowland Social History Tobacco Use Types Packs/Day Years [...] encounter Miscellaneous Notes * Telephone Encounter - Pamela Mckeon - 10/18/2019 9:50 AM EDT TRIAGE CALL Caller: Lianna Patient of: Dr. Morfin Reason for Call: Fall Symptom Review: Lianna calls today as she fell and hit her head on 10/12. She went to her PCP who reports she should be just fine and did not order any imaging. She is not having any neurological issuesand reports her headache is improved. Review of Systems related to Reason for Call: Integumentary: Pos; black eyes Head (ENT/Neuro): Pos ; had a headache initially but reports this has subsided. Respiratory: Neg Cardiac: Neg GI: Neg : Neg Musculoskeletal: Neg Select specific Decision Support Tool used: Telephone Triage Protocols for Nurses, 5th Edition, Sheila Garcia, 2016 Disposition: Other - see comment Plan of Care: I reassured Lianna that it sounds like while she did bump her head quite hard, evidencedby the fact that she has black eyes she is not having any sxs that are concerning from a neurovascular standpoint. Despite this reassurance she is requesting imaging. She is due for her f/u MRA in December so we agreed that we would get this scheduled a little sooner per her request. We reviewed sxsthat would warrant immediate medical attention to which she verbalized an understanding of. Per Decision Support Tool (note specific protocol from text selected above): Patient/responsible caregiver able to read back instructions/plan of care? yes Recommendations for worsening condition given to patient/responsible caregiver? Go to ED or contactPCP for new/worsneing sxs Patient/responsible caregiver able to read back actions for worsening condition? yes Patient/responsible caregiver intends to comply with action/disposition? yes Follow up needed? yes If yes, outline: will schedule f/u MRA per recall. * Telephone Encounter - Raisa Rowland - 10/18/2019 9:36 AM EDT Caller: Patient Best number to reach caller: [phone] Reason for call: Patient calling to report hitting her head due to a fall on 10/13/19. She sates she saw her PCP who did not order any imaging, and she would like to follow up with Dr. Morfin to ascertain she sustained no damage. She reports having two black eyes Recent Surgery?: No If before 4:00 pm: Inform caller that the typical expectation for a call back is within 1-2 hours. documented in this encounter Plan of Treatment Not on file documented as of this encounter Visit Diagnoses Not on filedocumented in this encounter Care Teams Molecular Modeler Relationship Specialty Start Date End Date Neda Keller MD [address] [place] [address] PCP - General 01/28/10 03/05/22 documented as of this encounter
--- OUTSIDE RECORDS SUMMARY | 2024-02-07 16:36 | XMS_ITS | Encounter Summary ---
Author Organization [facility] Address [facility] [place] [address] Care Team Providers Care Distribution Clerk Name Role Phone Neda Keller MD Primary Care Provider [phone] Encounter Details Date Type Department Care Team (Late st Contact Info) Description 11/08/2019 1:30 PM EDT TH Visit (TeleHealth) [place] [phone] Kash Morfin MD [facility] [place] [address] Aneurysm of cavernous portion of right internal [...] on file documented as of this encounter Progress Notes * Kash Morfin MD - 11/08/2019 1:30 PM EDT Interventional Neuroradiology Clinic Office Note Note Author: Kash Morfin MD Chief Complaint: Cerebral aneurysm followup History of present illness: Lianna Yuan??is a 82 y.o.??female??who is 3.5 year??s/p??Pipeline??embolization of a??giant right cavernous ICA??aneurysm. ??She has diminished headaches and no evident problems with vision in her right eye. Her left eye vision has deteriorated to the point where it provides little vision. She nowhas no double vision. Current Outpatient Medications on File Prior to Visit Medication Sig Dispense Refill ??? apixaban (ELIQUIS) 2.5 mg Tablet 1 tablet Every 12 hours. ??? diphenhydrAMINE (BENADRYL) 25 mg Capsule Take [...] (mild pain, fever). 30 tablet 1 ??? aspirin 81 mg Tablet, Chewable Take 81 mg by mouth daily. ??? meTOPROLOL tartrate (LOPRESSOR) 25 mg Tablet Take 50 mg by mouth daily. No current facility-administered medications on file prior to visit. Allergies Allergen Reactions ??? Atenolol Other reaction(s): Headache ??? Franc Inhibitors Other reaction(s): Cough ??? Clonidine ??? Diltiazem ??? Hydrochlorothiazide Imaging studies: MRI and MR angiography shows that the large right cavernous ICA aneurysm is unchanged in size. It is largely thrombosed. The small site of flow related enhancement adjacent to the parent artery is unchanged. No new or enlarging aneurysm Assessment: Lianna Yuan Has a right cavernous ICA aneurysm that appears to have stabilized. WHile additional flow diverting stent could be placed, the benefits do not clearly exceed the risks at this point. We will plan for surveillance imaging 2 years from now. Plan: Follow-up MRI and MRA in 2 years. Of this 5 minute visit, 5 minutes was spent in counseling and coordination of care. 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
--- OUTSIDE RECORDS SUMMARY | 2024-02-07 16:36 | XMS_ITS | Encounter Summary ---
Author Organization [facility] Address [facility] [place] [address] Care Team Providers Care Page Makeup System Operator Name Role Phone Qamar Benavides MD Primary Care Provider [phone] Encounter Details Date Type Department Care Team (Latest Contact Info) Description 06/18/2022 Travel Social History Tobacco Use Types Packs/Day Years [...] on filedocumented in this encounter Care Teams Page Makeup System Operator Relationship Specialty Start Date End Date Qamar Benavides MD [address] [place] [address] PCP - General Family Medicine 03/06/22 documented as of this encounter
--- OUTSIDE RECORDS SUMMARY | 2024-02-07 16:36 | XMS_ITS | Clinical Summary ---
Author Organization [facility] Address [facility] [place] [address] Care Team Providers Care Superintendent Drivers Name Role Phone Qamar Benavides MD Primary Care Provider [phone] Allergies Active Allergy Reactions Criticality Noted Date Comments Franc Inhibitors 12/07/2018 Other reaction(s): Cough Atenolol Medium 12/07/2018 Other reaction(s): Headache Clonidine 12/07/2018 Diltiazem 12/07/2018 Hydrochlorothiazide 12/07/2018 Medications Medication Sig Dispensed Refills Start Date End Date Status aspirin 81 mg Tablet, Chewable Take 81 mg by mouth daily. Active acetaminophen (TYLENOL) 325 mg Tablet Take 2 tablets by mouth every 4 hours as needed for Pain (mild pain, fever). 30 tablet 1 06/10/2016 Active atorvastatin (LIPITOR) 40 mg Tablet Take 40 mg by mouth daily. Active OMEGA-3S/DHA/EPA/FISH OIL (OMEGA 3 ORAL) Take by mouth daily. Active diphenhydrAMINE (BENADRYL) 25 mg Capsule Take 25 mg by mouth every 6 hours as needed for Itching. Active apixaban (Eliquis) 2.5 mg tablet 1 tablet Every 12 hours. Active chlorthalidone (Hygroten) 25 mg Tablet Take 25 mg by mouth daily. 12/09/2020 Active zoledronic dsod-lprrkxil-blqgl (zoledronic Acid) 5 mg/100 mL infusion Inject 5 mg into the vein. Active calcium carbonate/vitamin D3 (CALCIUM 500 + D ORAL) Take by mouth 2 times daily. Active losartan (Cozaar) 50 mg Tablet Take 50 mg by mouth daily. Active metoprolol succinate XL (Toprol-XL) 100 mg Tablet Sustained Release 24 hr Take 100 mg by mouth daily. Active multivitamin (THERAGRAN) Tablet Take 1 tablet by mouth daily. Active Active Problems Problem Noted Date Diagnosed Date Vestibular disorder, left 06/18/2022 Assessment & Plan (06/18/2022 12:44 PM EDT): Imbalance of gradual onset with exam findings suggestive of left vestibular weakness. Discussed possible etiologies (infectious/inflammatory versus ischemic). Emphasized that regardless of case, she would benefit from vestibular rehab. Will refer to vestibular PT provider at [facility]. 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 Morfin Post-treatment, had R lid ptosis and dizziness. 08/11/17 MRA small area of filling 11/08/19 MRA stable filling, little benefit to additional stenting, Dr. Morfin Assessment & Plan (06/18/2022 12:42 PM EDT): Stable treated aneurysm with known residual, that appears unchanged. Given size of original aneurysm and patient's otherwise good health, will continue surveillance. Repeat MRA head 2 years. 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 Cerebral aneurysm 04/29/2016 Social History Tobacco Use Types Packs/Day Years Used Date Smoking Tobacco: Never Smokeless Tobacco: Never Alcohol Use Standard Drinks/Week Comments Yes 0 (1 standard drink = 0.6 oz pur e alcohol) social Sex and Gender Information Value Date Recorded Sex Assigned at Not on file Gender Identity Not on file Sexual Orientation Not on file Last Filed Vital Signs Vital Sign Reading Time Taken Comments Blood Pressure 146/95 06/18/2022 11:38 AM EDT Pulse 75 06/18/2022 11:38 AM EDT Temperature 37.2 ??C (98.9 ??F) 06/18/2022 11:38 AM E DT Respiratory Rate 17 06/18/2022 11:38 AM EDT Oxygen Saturation 95% 06/18/2022 11:38 AM EDT Inhaled Oxygen Concentration - - Weight 58.7 kg (129 lb 6.4 oz) 06/18/2022 11:38 AM EDT Height 147.3 cm (4' 9.99) 06/18/2022 11:38 AM E DT Body Mass Index 27.05 06/18/2022 11:38 AM EDT Plan of Treatment Health Maintenance Due Date Last Done Comments Tetanus/Diphtheria/Pertussis Vaccines (1 - Tdap) 10/10 Zoster vaccine (1 of 2) 1986 Advance Directive 10/11/1991 Bone Density Scan 2001 Pneumoccocal Vaccine: 65+ (1 of 1 - PCV) 2001 RSV Vaccine (1 - 1-dose 75+ series) 10/11/2011 Covid-19 Vaccine (1 - 2023- season) 2023 Influenza (Flu) vaccine (1 o f 1 - Influenza standard series) 11/07/2023 Medical Devices Implanted Type Area Family Welfare Social Work Professor Device Identifier Shelf Expiration Date Model / Serial / Lot Coil- 7 Implanted:Qty : 1 on 02/08/2017 by Kash Morfin MD Coil Right: Brain 08/31/2021 [id number] / / [id number] Description:COSMOS Coil- 7 Implanted:Qty : 1 on 02/08/2017 by Kash Morfin MD Coil N/A: Brain [id number] / / [id number] Description:HYP[employer]OFT 3D Coil- 7 Implanted:Qty : 1 on 02/08/2017 by Kash Morfin MD Coil N/A: Brain 01/05/2022 [id number] / / [id number] Description:HYPERSOFT 3D Coil- 7 Implanted:Qty : 1 on 02/08/2017 by Kash Morfin MD Coil N/A: Brain 03/07/2021 [id number] / / [id number] Description:HYPERSOFT 3D Coil- 7 Implanted:Qty : 1 on 02/08/2017 by Kash Morfin MD Coil N/A: Brain 02/04/2021 [id number] / / [id number] Description:[employer]OFT 3D Pipeline Stent- 7 Implanted:Qty : 1 on 06/08/2016 by Kash Morfin MD Stent Arterial DO NOT USE [employer] - [id number] 06/19/2018 [id number] / / [id number] Advance Directives Documents on File Type Date Recorded 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 Dial Equipment Engineer 03/30/2022 11:15 AM prema daniel * Full Code (Latest Code Status on File) Date Activated Date Inactivated Comments 02/08/2017 12:01 PM 02/09/2017 4:37 AM Question Answer Comments Does patient have capacity to make decision: Yes * Full Code Date Activated Date Inactivated Comments 06/08/2016 11:40 AM 06/10/2016 2:01 PM Question Answer Comments Does patient have capacity to make decision: Yes * Full Code Date Activated Date Inactivated Comments 06/08/2016 9:26 AM 06/08/2016 11:40 AM Question Answer Comments Does patient have capacity to make decision: Yes Care Teams Superintendent Drivers Relationship Specialty Start Date End Date Qamar Benavides MD [address] [place] [address] PCP - General Family Medicine 03/06/22
--- OUTSIDE RECORDS SUMMARY | 2024-02-07 16:36 | XMS_ITS | Encounter Summary ---
Author Organization [facility] Address [facility] [place] [address] Care Team Providers Care Client Solutions Specialist Name Role Phone Neda Keller MD Primary Care Provider [phone] Reason for Referral * Diagnostic Test (Routine) - Closed Specialty Diagnoses / Procedures Referred By Amarilis tidwell Referred To Contact Radiology Diagnoses 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 Procedures MRI Brain wo Contrast Kash Morfin MD [facility] [place] [address] [place] [address] Referral ID Status Reason Start Date Expiration Date V isits Requested Visits Authorized [id number] Closed Specialty Service Requested 02/09/2018 02/09/2019 1 1 * Diagnostic Test (Routine) - Specialty Diagnoses / Procedures Referred By Amarilis t Referred To Contact Radiology Diagnoses 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 Procedures MRI Angiogram Head wo Contrast (Generic) Kash Morfin MD [facility] [place] [address] [place] [address] Referral ID Status Reason Start Date Expiration Date Visits Requested Visits Authorized [id number] Specialty Service Requested 02/09/2018 02/09/2019 1 1 Reason for Visit * Diagnostic Test (Routine) - Closed Specialty Diagnoses / Procedures Referred By Amarilis tidwell Referred To Contact Radiology Diagnoses 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 Procedures MRI Brain wo Contrast Kash Morfin MD [facility] [place] [address] [facility] [place] [address] Referral ID Status Reason Start Date Expiration Date V isits Requested Visits Authorized [id number] Closed Specialty Service Requested 02/09/2018 02/09/2019 1 1 Encounter Details Date Type Department Care Team (Latest Contact Info) Description 12/07/2018 1:09 PM EDT - 12/07/2018 11:59 PM EDT [place] [address] Kash Morfin MD [facility] [place] [address] 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 aspirin 81 mg Tablet, Chewable Take 81 mg by mouth daily. diphenhydrAMINE (BENADRYL) 25 mg Capsule Take 25 mg by mouth every 6 hours as needed for Itching. atorvastatin (LIPITOR) 40 mg Tablet Take 40 mg by mouth daily. OMEGA-3S/DHA/EPA/FISH OIL (OMEGA 3 ORAL) Take by mouth daily. acetaminophen (TYLENOL) 325 mg Tablet Take 2 tablets by mouth every 4 hours as needed for Pain (mild pain, fever). 30 tablet 1 06/10/2016 MELATONIN ORAL Take by mouth nightly as needed. 12/17/2020 meTOPROLOL tartrate (LOPRESSOR) 25 mg Tablet Take 50 mg by mouth daily. 12/17/2020 documented as of this encounter Plan of Treatment Not on file documented as of this encounter Procedures Procedure Name Priority Date/Time Associated Diagnosis Comments MRI HEAD ANGIOGRAM WO CONTRAST Routine 12/07/2018 2:05 PM EDT 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 MRI BRAIN WO CONTRAST Routine 12/07/2018 2:05 PM EDT 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 documented in this encounter Results * MRI [...] this report, please contact the number below. aKsh Morfin MD IMG MRI ORDERABLES documented in this encounter Visit Diagnoses Diagnosis 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 documented in this encounter Care Teams Client Solutions Specialist Relationship Specialty Start Date End Date Neda Keller MD [address] [place] [phone] PCP - General 01/28/10 03/05/22 documented as of this encounter
--- OUTSIDE RECORDS SUMMARY | 2024-02-07 16:36 | XMS_ITS | Encounter Summary ---
Author Organization [facility] [address] Care Team Providers Care Lead Presser Name Role Phone Neda Keller MD Primary Care Provider Reason for Referral * Diagnostic Test (Routine) - Closed Specialty Diagnoses / Procedures Referred By Amarilis tidwell Referred To Contact Radiology Diagnoses Cerebral aneurysm Procedures IR All Neuro Angiograms [facility] Neurosurgery [address] [place] [phone] [place] [address] Referral ID Status Reason Start Date Expiration Date V isits Requested Visits Authorized [id number] Closed Specialty Service Requested 12/10/2016 12/10/2017 1 1 Reason for Visit * Diagnostic Test (Routine) - Closed Specialty Diagnoses / Procedures Referred By Contac t Referred To Contact Radiology Diagnoses Cerebral aneurysm Procedures IR All Neuro Angiograms [facility] Neurosurgery [address] [place] [phone] [facility] [place] [address] Referral ID Status Reason Start Date Expiration Date V isits Requested Visits Authorized [id number] Closed Specialty Service Requested 12/10/2016 12/10/2017 1 1 Encounter Details Date Type Department Care Team (Latest Contact Info) Description 02/08/2017 9:52 AM EST - 02/08/2017 11:19 AM EST Hospital [place] [address] Kash Morfin MD [facility] DR DIAGNOSTIC RADIOLOGY [place] [id number] Cerebral aneurysm Discharge Disposition: Home Social History Tobacco Use Types Packs/Day Years Used Date Smoking Tobacco: Never Smokeless Tobacco: Never Alcohol Use Standard Drinks/Week Comments Yes 0 (1 standard drink = 0.6 oz pur e alcohol) social Sex and Gender Information Value Date Recorded Sex Assigned at Not on file Gender Identity Not on file Sexual Orientation Not on file documented as of this encounter Discharge Instructions * Discharge Instructions* Nadine Ayon RN - 02/08/2017 1:16 PM EST [facility] Interventional Radiology Post Angiography Instructions Procedure: Cerebral Angiogram Puncture Site: Right femoral Date: 02/08/17 Physician: Dr. Morfin 1. At home we advise you to rest quietly in bed or on the couch with your hip straight until the next morning. Until the next morning you may get up only to go to the bathroom. 2. Resume your previous diet. Drink 6-8 ounces of fluid per hour for the next 8 hours. Avoid alcoholic or caffeinated beverages for 24 hours. 3. Avoid strenuous activity for the next 48 hours, particularly in the next 24 hours. Stair climbing should be kept to a minimum. Do not lift objects heavier than 10-15 pounds for the next 48 hours Avoid straining for bowel movements as you can pop open the clot that has formed on the artery. 4. If you develop bulging under the skin or bleeding at the puncture site, put direct pressure on the puncture site for 15 minutes and call your doctor. If the bleeding persists, reapply pressure, and go to your local Emergency Department. 5. If you notice a sudden change in the feeling (numbness, tingling and/or pain) of your leg on theside of the puncture call your doctor. 6. You may develop a bruise at the puncture site. This should go away within a week to 10 days. If a bulge develops after the first three days, call your doctor or the Radiology/Vascular Department here. Report signs of infection (redness, swelling, discharge, soreness, or fever) to your doctor. 7. Leave the bandage on for 24-48 hours. You may shower the following day after the procedure. You should NOT swim or tub bathe for [address] for 24 hours after the procedure. Do not sign any important documents or smoke unattended for 24 hours. You may return to work with the above restrictions on . 9. If you have any questions or concerns, please call Interventional Radiology Department at until 6pm. After 6pm, or on weekends or hoildays, call and ask for the vice president network credit resolution representative. 10. If you are a diabetic and take Metformin or Janumet, Do not take it for 2 days after the procedure. XX You have received medication during your procedure to help lesson anxiety and keep you comfortable and which affects judgement and reaction time. We recommend that you do not drive, operate equipment, sign any important documents, or smoke unattended for 24 hours following your procedure. Because of the sedation please be careful on stairs, as you may be unsteady on your feet. You may resume your regular diet as tolerated. IV site -- slight redness, or tenderness is normal, you can use a warm compress. If tenderness and redness increases or foul drainage occurs, please contact your M. D. Revised 03/22/15 documented in this encounter Medications at Time [...] as of this encounter Progress Notes * Silverio Pierce MD - 02/08/2017 12:01 PM EST PRE-SEDATION ASSESSMENT / FOCUSED H&P Addendum: The patient's history and physical exam have been reviewed and completed. There has been no interval change from that of the pre-operative history and physical exam done within the last 30 days. Risks (including hemorrhage, infection, allergic reaction, occlusion, respiratory depression), and benefits discussed and patient consented to the procedure. I have reviewed with the patient, their prior experience with sedation. 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 Previously was referred to neurology for symptoms of dizziness and imbalance. She now presents for her follow-up angiogram since her initial procedure on 06/12/16. Past Medical/Surgical History: Patient Active Problem List Diagnosis Code ??? 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 Cerebral aneurysm I67.1 ??? 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 Difficult airway T88.4XXA ??? Marfan's syndrome Q87.40 No past medical history on file. Past Surgical History: Procedure Laterality Date ??? PRO PERM OCCLUSION/EMBOLIZATION, PERCUT, MANGANESE BREAKER N/A 06/08/2016 @TRANSCATHETER OCCLUSION/EMBOLIZATION FOR TUMOR DESTRUCTION performed by Kash Morfin MD at [facility] Medications: Current Outpatient Prescriptions on File Prior to Encounter Medication Sig Dispense Refill ??? atorvastatin (LIPITOR) 40 mg Tablet Take 40 mg by mouth daily. ??? MELATONIN ORAL Take by mouth nightly as needed. ??? clonazePAM (KLONOPIN) 0.5 mg Tablet, Rapid Dissolve Take 0.5 mg by mouth nightly as needed. 03/11tab ??? OMEGA-3S/DHA/EPA/FISH OIL (OMEGA 3 ORAL) Take by mouth daily. ??? dexamethasone (DECADRON) 2 mg Tablet Take 1 tablet by mouth 3 times daily (with meals). 42 tablet 0 ??? acetaminophen (TYLENOL) 325 mg Tablet Take [...] Tablet Take 5 mg by mouth daily. No current facility-administered medications on file prior to encounter. Allergies: Review of patient's allergies indicates no known allergies. Social History and Habits: Social History Social History ??? Marital status: Spouse name: N/A ??? Number of children: N/A ??? Years of education: N/A Occupational History ??? Not on file. Social History Main Topics ??? Smoking status: Never Smoker ??? Smokeless tobacco: Never Used ??? Alcohol use Yes Comment: social ??? Drug use: No ??? Sexual activity: Not on file Other Topics Concern ??? Not on file Social History Narrative Significant Family History: No family history on file. Pertinent ROS: as per HPI Labs: Lab Results Component Value Date WBC 7.6 06/09/2016 HCT 38.7 06/09/2016 PLATELET 151 06/09/2016 CREATININE 0.55 (L) 05/13/2016 Imaging: Pending (PACS down at this time) Physical Exam: Pending (to be performed in angio the day of procedure) ASA: Pending (to be assessed in angio the day of procedure) Mallampati Class: Pending (to be assessed in angio the day of procedure) Assessment: 81 y.o. female w/hx of large right cavernous ICA aneurysm s/p pipeline embolization, now presents for cerebral angiogram. Plan: Cerebral angiogram Labs to be performed day of procedure: Platelets Medication to STOP: None Sedation: Anesthesia Prophylactic antibiotic: None Additional medications for procedure: None Planned access site: R EXHIBITS MANAGER Position: Supine Consent: Pending 02/07/2017 documented in this encounter Miscellaneous Notes * Brief Op Note - Silverio Pierce MD - 02/08/2017 2:12 PM EST INTERVENTIONAL RADIOLOGY BRIEF PROCEDURE NOTE Patient Name: Lianna Yuan : 1935 Case Date: 02/08/2017 Operators: Resident/Fellow: Quinn Pierce Attending: Dr. Morfin Post-operative diagnosis/Indication: Right cavernous ICA aneurysm s/p pipeline embolization Name of Procedure Performed: - R EXHIBITS MANAGER Acess - Single vessel cerebral angiogram (R ICA) - R EXHIBITS MANAGER roadmap - R EXHIBITS MANAGER Mynx closure device Findings of the procedure: Right cavernous ICA aneurysm s/p pipeline embolization with mild residual filling EBL: <10 mL Sedation: See Anesthesia documentation Medications: Lidocaine 1% <10 mL SQ Contrast: Visipaque 320 18 mL Complications: No immediate Plan/Disposition: Same day Condition: Stable documented in this encounter Plan of Treatment Not on file documented as of this encounter Procedures Procedure Name Priority Date/Time Associated Diagnosis Comments IR ALL NEURO ANGIOGRAMS Routine 02/08/2017 1:57 PM EST Cerebral aneurysm documented in this encounter Results * IR All Neuro Angiograms (02/08/2017 1:57 PM EST) Anatomical Region Laterality Modality Vascular X-Ray Angiograph y Impressions 02/10/2017 2:43 PM EST - Right cavernous ICA aneurysm s/p Pipeline embolization with mild residual aneurysm opacification on follow-up cerebral angiogram injection via the right common carotid artery. 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 Now presents for follow-up cerebral angiogram. OPERATORS: Resident/Fellow: Quinn Pierce Attending: Dr. Shelbie Lutz, Kash Morfin, was present for the entire procedure. PROCEDURE: - R EXHIBITS MANAGER access - Cerebral angiogram - R EXHIBITS MANAGER Mynx closure device ANESTHESIA: Monitored anesthesia care provided by the Anesthesia service. EBL: <50 ml CONTRAST: 18 mL Visipaque-320. RADIATION EXPOSURE: A-plane 302.3 mGy, B-plane ??131.9 mGy. MATERIALS: Micropuncture set, 5Fr [place] sheath, 5Fr ??Juwan catheter. TECHNIQUE: The procedure and its risks were discussed with the ??patient and written informed consent obtained. The patient was brought to the angiography suite. The right groin was sterilely prepped and draped. A small amount of 1% lidocaine was applied at the planned puncture site. Using micropuncture set, the right femoral artery was accessed and the ??5Fr sheath placed, flushed, and connected to a continuous heparinized saline infusion. ?? The ??5Fr Juwan catheter was placed in the descending aorta over the wire, flushed. This catheter was placed in the right common carotid artery. Biplane cerebral angiogram was obtained from this position. There were no immediate complications. Catheter was removed. R EXHIBITS MANAGER roadmap was obtained. Mynx closure device was used and manual compression applied for 10 minutes to the arteriotomy site in the right groin. The patient was transferred to the same day unit in stable condition. FINDINGS: RIGHT COMMON CAROTID ROADMAP: The carotid bifurcation appears normal. There is no stenosis. RIGHT COMMON CAROTID ARTERY INJECTION: The right common and internal carotid artery shows unchanged appearance of the Pipeline stent. There is near complete occlusion of the aneurysm; however a small amount of opacification outside the confines of the stent remains visible at approximately the proximal portion of the aneurysm. Procedure Note Kash Morfin MD - 02/10/2017 EXAMINATION: Right cavernous ICA aneurysm s/p pipeline embolizationfollow-up cerebral angiogram CLINICAL HISTORY: Lianna Yuan?is a 81 y.o.?female?who underwentpipeline embolization of a large right cavernous ICA aneurysm on 06/12/16. Nowpresents for follow-up cerebral angiogram. OPERATORS: Resident/Fellow: Quinn Pierce Attending: Dr. Shelbie Lutz, Kash Morfin, was present for the entireprocedure. PROCEDURE: - R EXHIBITS MANAGER access - Cerebral angiogram - R EXHIBITS MANAGER Mynx closure device ANESTHESIA: Monitored anesthesia care provided by the Anesthesiaservice. EBL: <50 ml CONTRAST: 18 mL Visipaque-320. RADIATION EXPOSURE: A-plane 302.3 mGy, B-plane 131.9 mGy. MATERIALS: Micropuncture set, 5Fr [place] sheath, 5Fr Juwan catheter. TECHNIQUE: The procedure and its risks were discussed with the patientand written informed consent obtained. The patient was brought to theangiography suite. The right groin was sterilely prepped and draped. A small amount of1% lidocaine was applied at the planned puncture site. Using micropunctureset, the right femoral artery was accessed and the 5Fr sheath placed, flushed,and connected to a continuous heparinized saline infusion. The 5Fr Juwan catheter was placed in the descending aorta over thewire, flushed. This catheter was placed in the right common carotid artery.Biplane cerebral angiogram was obtained from this position. There were no immediate complications. Catheter was removed. R EXHIBITS MANAGER roadmapwas obtained. Mynx closure device was used and manual compression applied for10 minutes to the arteriotomy site in the right groin. The patient wastransferred to the same day unit in stable condition. FINDINGS: RIGHT COMMON CAROTID ROADMAP: The carotid bifurcation appears normal.There is no stenosis. RIGHT COMMON CAROTID ARTERY INJECTION: The right common and internalcarotid artery shows unchanged appearance of the Pipeline stent. There is nearcomplete occlusion of the aneurysm; however a small amount of opacification outsidethe confines of the stent remains visible at approximately the proximalportion of the aneurysm. IMPRESSION - Right cavernous ICA aneurysm s/p Pipeline embolization with mildresidual aneurysm opacification on follow-up cerebral angiogram injection via theright common carotid artery. Preliminary report signed by: Silverio Pierce at 02/09/2017 6:40PM I have personally reviewed the image(s) and the residents interpretationand agree with the findings, Kash Morfin at 02/10/2017 2:43 PM Kash Morfin MD IMG IR ORDERABLES documented in this encounter Visit Diagnoses Diagnosis Cerebral aneurysm Cerebral aneurysm, nonruptured documented in this encounter Administered Medications Inactive Administered Medications - up to 3 most recent administrations Medication Order MAR Action Action Date Dose Rate Site iodixanol (VISIPAQUE) 320 mg iodine/mL injection 150 mL 150 mL, Intra-arterial, ONCE PRN, 1 dose, Starting on Wed02/08/17 at 1327, Until Wed02/08/17 at 1327, Per Protocol, Angio/IR (Intra-Procedure), Routine Given 02/08/2017 1:27 PM EST 18 mLs documented in this encounter Care Teams Lead Presser Relationship Specialty Start Date End Date Neda Keller MD [address] [place] [address] PCP - General 01/28/10 03/05/22 documented as of this encounter
--- OUTSIDE RECORDS SUMMARY | 2024-02-07 16:36 | XMS_ITS | Encounter Summary ---
Author Organization [facility] Address [facility] [place] [address] Care Team Providers Care Expander Name Role Phone Neda Keller MD Primary Care Provider Encounter Details Date Type Department Care Team (Late st Contact Info) Description 03/03/2018 Telephone Neurosurgery at [facility] [place] [address] Sarah Santiago RN Social History Tobacco Use Types Packs/Day [...] encounter Miscellaneous Notes * Telephone Encounter - Sarah Santiago RN - 03/03/2018 10:37 AM EST Lianna called to report a headache. She fell on 02/11/18 and has had headaches since but they are worsening. She reports they are now a 5-7/10. She takes Tylenol daily. Lianna reports she is walking fine and not having any visual complaints or any other complaints. She saw her PCP on 02/14/18 and was given a muscle relaxant. I advised Lianna to call her PCP and inquire about a repeat CT scan. documented in this encounter Plan of Treatment Not on file documented as of this encounter Visit Diagnoses Not on filedocumented in this encounter Care Teams Expander Relationship Specialty Start Date End Date Neda Keller MD [address] [place] [phone] PCP - General 01/28/10 03/05/22 documented as of this encounter
--- OUTSIDE RECORDS SUMMARY | 2024-02-07 16:36 | XMS_ITS | Encounter Summary ---
Author Organization [facility] Address [facility] [place] [address] Care Team Providers Care Mail Inserter Name Role Phone Neda Keller MD Primary Care Provider [phone] Encounter Details Date Type Department Care Team (Late st Contact Info) Description 01/10/2018 Telephone Neurosurgery at [facility] [place] [address] Rachel Ny Social History Tobacco Use Types Packs/Day Years [...] encounter Miscellaneous Notes * Telephone Encounter - Rachel Ny - 01/13/2018 8:28 AM EST Patient called back to schedule MRA and CE appt, mailing appt card. * Telephone Encounter - Rachel Ny - 01/10/2018 1:11 PM EST Left message for patient to call back to schedule recall with Dr. Morfin, need MRI safety questions updated when patient calls back. MRA order in edh documented in this encounter Plan of Treatment Not on file documented as of this encounter Visit Diagnoses Not on filedocumented in this encounter Care Teams Mail Inserter Relationship Specialty Start Date End Date Neda Keller MD [address] [place] [address] PCP - General 01/28/10 03/05/22 documented as of this encounter
--- OUTSIDE RECORDS SUMMARY | 2024-02-07 16:36 | XMS_ITS | Encounter Summary ---
Author Organization [facility] Address [facility] [place] [address] Care Team Providers Care Dead Mail Checker Name Role Phone Neda Keller MD Primary Care Provider Encounter Details Date Type Department Care Team (Late st Contact Info) Description 11/15/2018 Telephone Neurosurgery at [facility] [place] [phone] Beth Gary Social History Tobacco Use Types Packs/Day Years [...] Miscellaneous Notes * Telephone Encounter - Beth Gary - 11/15/2018 11:02 AM EDT Patient scheduled for 1 yr f/u. Appt card mailed. documented in this encounter Plan of Treatment Not on file documented as of this encounter Visit Diagnoses Not on filedocumented in this encounter Care Teams Dead Mail Checker Relationship Specialty Start Date End Date Neda Keller MD [address] [place] [phone] PCP - General 01/28/10 03/05/22 documented as of this encounter
--- OUTSIDE RECORDS SUMMARY | 2024-02-07 16:36 | XMS_ITS | Encounter Summary ---
Author Organization [facility] Address [facility] [place] [address] Care Team Providers Care Manager Film Name Role Phone Qamar Benavides MD Primary Care Provider [phone] Encounter Details Date Type Department Care Team (Late st Contact Info) Description 03/09/2022 10:30 PM EST Ancillary Procedure Radiology Library [facility] [phone] Qamar Benavides MD [address] [place] [address] Social History Tobacco Use Types Packs/Day Years [...] FILM LIBRARY STORAGE ONLY CT CHEST Routine 03/09/2022 10:21 PM EST documented in this encounter Results * Film Library- Storage Only CT Chest (03/09/2022 10:21 PM EST) Narrative CATALINA - 03/09/2022 10:21 PM EST This exam is auto-finalizing. It's purpose is for storage only. Qamar Benavides MD G FILM LIBRARY ORD ERABLES [place], [place] documented in this encounter Visit Diagnoses Not on filedocumented in this encounter Care Teams Manager Film Relationship Specialty Start Date End Date Qamar Benavides MD [address] [place] [address] PCP - General Family Medicine 03/06/22 documented as of this encounter
--- OUTSIDE RECORDS SUMMARY | 2024-02-07 16:36 | XMS_ITS | Encounter Summary ---
Author Organization [facility] Address [facility] [place] [address] Care Team Providers Care Media Theorist And Author Of Name Role Phone Neda Keller MD Primary Care Provider Encounter Details Date Type Department Care Team (Late st Contact Info) Description 12/03/2020 Orders [place] [phone] Kvng Hobbs MD Thoracic aortic aneurysm without [...] rupture documented in this encounter Care Teams Media Theorist And Author Of Relationship Specialty Start Date End Date Neda Keller MD [address] [place] [address] PCP - General 01/28/10 03/05/22 documented as of this encounter
--- OUTSIDE RECORDS SUMMARY | 2024-02-07 16:36 | XMS_ITS | Encounter Summary ---
Author Organization [facility] Address [facility] [place] [address] Care Team Providers Care Emergency Room Registered Nurse Name Role Phone Neda Keller MD Primary Care Provider [phone] Encounter Details Date Type Department Care Team (Late st Contact Info) Description 11/05/2020 Telephone Neurosurgery at [facility] [place] [address] Raisa Rowland Social History Tobacco [...] Telephone Encounter - Sarah Santiago RN - 11/05/2020 4:07 PM EDT Lianna Yuan [id number] Caller: Lianna and daughter, Shannan Reason for call: c/o flickering/waves in bottom left side of brain x 1 year; denies visual changes or headache Had chest pains today-taken to the local ED-told to contact her neurosurgeon for the brain flickering/waves. s/p right ICA aneurysm pipeline stent on 06/08/[address] Morfin Last f/u on 11/08/19 with plan for f/u in 2 years. Plan: will let Dr. Morfin know but I let Shannan and Lianna know I don't suspect this is r/t her aneurysm. They will discuss with her PCP next Wednesday at her scheduled appointment. * Telephone Encounter - Raisa Rowland - 11/05/2020 3:57 PM EDT Caller: Family member If not the patient: Name of caller: Shannan Relationship to patient: daughter Personal Rep on file?: with pt Best number to reach caller: [phone] (patient) Reason for call: Shannan and patient calling to advise patient has been experiencing a flickering wave in brain, like a tapping, on left side. Patient was seen in [facility] ED today for chest pain, advisedto follow up with NSGY for brain flickering Recent Surgery?: No If after 4:00 pm: Inform caller that if the nurse does not call back by the end of the day, they will be called in the AM of the next business day. documented in this encounter Plan of Treatment Not on file documented as of this encounter Visit Diagnoses Not on filedocumented in this encounter Care Teams Emergency Room Registered Nurse Relationship Specialty Start Date End Date Neda Keller MD [address] [place] [phone] PCP - General 01/28/10 03/05/22 documented as of this encounter
--- OUTSIDE RECORDS SUMMARY | 2024-02-07 16:36 | XMS_ITS | Encounter Summary ---
Author Organization [facility] Address [facility] [place] [address] Care Team Providers Care Honing Job Setter Name Role Phone Neda Keller MD Primary Care Provider [phone] Encounter Details Date Type Department Care Team (Late st Contact Info) Description 10/23/2019 4:25 PM EDT Ancillary Procedure Radiology Library at [facility] [place] [phone] Neda Keller MD [address] [place] [phone] Social History Tobacco Use Types Packs/Day Years [...] Associated Diagnosis Comments FILM LIBRARY STORAGE ONLY MR HEAD Routine 10/23/2019 4:23 PM EDT documented in this encounter Results * Film Library- Storage Only MR Head (10/23/2019 4:23 PM EDT) Narrative [facility] - 10/23/2019 4:23 PM EDT This exam is auto-finalizing. It's purpose is for storage only. Neda Keller MD G FILM LIBRARY ORD ERABLES Performing Organization Address City/State/[facility] Co de Phone Number [facility] [place], [place] documented in this encounter Visit Diagnoses Not on filedocumented in this encounter Care Teams Honing Job Setter Relationship Specialty Start Date End Date Neda Keller MD [address] [place] [phone] PCP - General 01/28/10 03/05/22 documented as of this encounter
--- OUTSIDE RECORDS SUMMARY | 2024-02-07 16:36 | XMS_ITS | Encounter Summary ---
Author Organization [facility] Address [facility] [place] [address] Care Team Providers Care Market Superintendent Name Role Phone Neda Keller MD Primary Care Provider [phone] Encounter Details Date Type Department Care Team (Late st Contact Info) Description 07/15/2017 Orders Only Neurosurgery at [facility] [place] [phone] Rachel Ny Social History Tobacco Use Types [...] on filedocumented in this encounter Care Teams Market Superintendent Relationship Specialty Start Date End Date Neda Keller MD [address] [place] [phone] PCP - General 01/28/10 03/05/22 documented as of this encounter
--- OUTSIDE RECORDS SUMMARY | 2024-02-07 16:36 | XMS_ITS | Encounter Summary ---
Author Organization [facility] Address [facility] [place] [address] Care Team Providers Care Management Rep Name Role Phone Neda Keller MD Primary Care Provider Encounter Details Date Type Department Care Team (Late st Contact Info) Description 02/28/2018 Telephone Neurosurgery at [facility] [place] [phone] Rachel Ny Social History Tobacco Use Types [...] * Telephone Encounter - Rachel Ny - 03/03/2018 10:05 AM EST Caller: Patient If not the patient: Name of caller: Relationship to patient: Personal Rep on file?: Best time to reach caller: Anytime Best number to reach caller: [phone] Reason for call: Still having headaches, daily and all the time please call to discuss (headaches mainly back of head) Recent Surgery?: No If before 4:00 pm: Inform caller that the typical expectation for a call back is within 1-2 hours. If after 4:00 pm: Inform caller that if the nurse does not call back by the end of the day, they will be called in the AM of the next business day. * Telephone Encounter - Pamela Mckeon - 02/28/2018 10:14 AM EST I called Lianna back to discuss the headache she has had since falling on 02/11. She reports that sincethe fall she has had a dull ache in the back of her head. She is taking Tylenol which is helping. She had a CT head after the fall at [place] which per her report was fine. She was d/c with no f/u needed. She denies any neurological deficits, no weakness, no vision changes, no n/v, and does not report that this head pain would be categorized as worst headache of my life. She gave it a 2/10 on the pain scale. I encouraged Lianna to continue to take Tylenol and make sure she gets lots of rest. We discussed neurological symptoms that would warrant immediate medical attention, she verbalized an understanding ofthese. She knows she can contact our office should she have any additional questions or concerns. * Telephone Encounter - Rachel Ny - 02/28/2018 9:01 AM EST Caller: Patient If not the patient: Name of caller: Relationship to patient: Personal Rep on file?: Best time to reach caller: anytime Best number to reach caller: [phone] (H) Reason for call: Patient called fell 02/11 going up the stairs hit her head face first, she went to [facility] on 02/[address] I am trying to get info, she is calling as she is concerned she isstill getting headaches worse in the back of her head daily, started in the front. Please call to discuss. Recent Surgery?: No If before 4:00 pm: Inform caller that the typical expectation for a call back is within 1-2 hours. If after 4:00 pm: Inform caller that if the nurse does not call back by the end of the day, they will be called in the AM of the next business day. documented in this encounter Plan of Treatment Not on file documented as of this encounter Visit Diagnoses Not on filedocumented in this encounter Care Teams Management Rep Relationship Specialty Start Date End Date Neda Keller MD [address] [place] [phone] PCP - General 01/28/10 03/05/22 documented as of this encounter
--- OUTSIDE RECORDS SUMMARY | 2024-02-07 16:36 | XMS_ITS | Encounter Summary ---
Author Organization [facility] Address [facility] [place] [address] Care Team Providers Care Reel Worker Name Role Phone Neda Keller MD Primary Care Provider Encounter Details Date Type Department Care Team (Late st Contact Info) Description 10/18/2019 Telephone Neurosurgery at [facility] [place] [address] Raisa Rowland Social History Tobacco [...] * Telephone Encounter - Beth Gary - 10/25/2019 5:01 PM EDT Imaging in [facility], scheduled next available TOV with [facility]. * Telephone Encounter - Rachel Ny - 10/18/2019 1:13 PM EDT Post pone 1 wk to allow time for scheduling Imaging at [facility] * Telephone Encounter - Raisa Rowland - 10/18/2019 10:01 AM EDT RN, Patient would like to have imaging done at [facility]. Please update orders. Spanner Operator, Please schedule TOV with [facility] in November, once imaging is received. No PA needed, F: [phone] Thank you Raisa documented in this encounter Plan of Treatment Not on file documented as of this encounter Visit Diagnoses Not on filedocumented in this encounter Care Teams Reel Worker Relationship Specialty Start Date End Date Neda Keller MD [address] [place] [phone] PCP - General 01/28/10 03/05/22 documented as of this encounter
--- OUTSIDE RECORDS SUMMARY | 2024-02-07 16:36 | XMS_ITS | Encounter Summary ---
Author Organization [facility] Address [facility] [place] [address] Care Team Providers Care Janitor Supervisor Name Role Phone Neda Keller MD Primary Care Provider [phone] Reason for Referral * Diagnostic Test (Routine) - Closed Specialty Diagnoses / Procedures Referred By Amarilis tidwell Referred To Contact Radiology Diagnoses Cerebral aneurysm without rupture Procedures MRI Angiogram Head wo Contrast (Generic) MRI Angiogram Head wwo Contrast Kash Morfin MD [facility] [place] [address] [place] [address] Referral ID Status Reason Start Date Expiration Date V isits Requested Visits Authorized [id number] Closed Specialty Service Requested 02/09/2017 02/09/2018 2 2 Encounter Details Date Type Department Care Team (Late st Contact Info) Description 02/09/2017 Orders [place] [address] Kash Morfin MD [facility] [place] [address] Cerebral aneurysm without rupture Social History Tobacco Use [...] noncontrast COMPARISON: Brain MRI dated 04/06/2016 [facility] 05/13/2016 Cerebral angiogram dated 02/08/2017 [...] noncontrast COMPARISON: Brain MRI dated 04/06/2016 [facility] 05/13/2016 Cerebral angiogram dated 02/08/2017 [...] on image 9 of series 15 measuring taxzknsscrthk48 mm short axis by 26 mm long [...] nonruptured documented in this encounter Care Teams Janitor Supervisor Relationship Specialty Start Date End Date Neda Keller MD [address] [place] [phone] PCP - General 01/28/10 03/05/22 documented as of this encounter
--- OUTSIDE RECORDS SUMMARY | 2024-02-07 16:36 | XMS_ITS | Encounter Summary ---
Author Organization [facility] Address [facility] [place] [address] Care Team Providers Care Meter Mechanic Name Role Phone Neda Keller MD Primary Care Provider [phone] Encounter Details Date Type Department Care Team (Late st Contact Info) Description 09/20/2018 Telephone Neurosurgery at [facility] [place] [address] Rachel Ny Social History Tobacco [...] * Telephone Encounter - Pamela Mckeon - 09/21/2018 12:43 PM EDT I called Dr. Keller' office back after hearing from Dr. Morfin: Yes, from my perspective it's fine to come off of Plavix at this point. Would want to keep ASA going though. I relayed this information to her MA Preet and instructed her to contact us should she have any additional questions or concerns. * Telephone Encounter - Pamela Mckeon - 09/20/2018 4:26 PM EDT I called Dr. Keller and LM with her MA let her know that I have sent a message to Dr. Morfin asking him to advise as to whether she can come off her Plavix so she can take Eliquis for AF. I let her know I would communicate with her as soon as I hear from Dr. Morfin. * Telephone Encounter - NyRachel Rafal - 09/20/2018 4:19 PM EDT Caller: Office If not the patient: Name of caller: Dr. Keller Relationship to patient: Personal Rep on file?: Best time to reach caller: anytime Best number to reach caller: [phone] or [phone] Reason for call: Pt has afib, needs to go on eliquist and Dr. Keller would like to discuss if pt can come off of aspirin or plavis. Dr. Keller prefers stopping plavix if possible. Please call her back in Dr. Morfin absence. Recent Surgery?: No If before 4:00 pm: [...] on filedocumented in this encounter Care Teams Meter Mechanic Relationship Specialty Start Date End Date Neda Keller MD [address] [place] [phone] PCP - General 01/28/10 03/05/22 documented as of this encounter
--- OUTSIDE RECORDS SUMMARY | 2024-02-07 16:36 | XMS_ITS | Encounter Summary ---
Author Organization [facility] Address [facility] [place] [address] Care Team Providers Care Wine Maker Name Role Phone Neda Keller MD Primary Care Provider [phone] Encounter Details Date Type Department Care Team (Late st Contact Info) Description 04/17/2021 Orders Only Cardiac Surgery [facility] [place] [address] Irvin Pierce PA [facility] [place] [address] Ascending aortic aneurysm Social History Tobacco Use Types Packs/Day Years [...] as of this encounter Visit Diagnoses Diagnosis Ascending aortic aneurysm Thoracic aneurysm without mention of rupture documented in this encounter Care Teams Wine Maker Relationship Specialty Start Date End Date Neda Keller MD [address] [place] [phone] PCP - General 01/28/10 03/05/22 documented as of this encounter
--- OUTSIDE RECORDS SUMMARY | 2024-02-07 16:36 | XMS_ITS | Encounter Summary ---
Author Organization [facility] Address [facility] [place] [address] Care Team Providers Care Lcpc Name Role Phone Neda Keller MD Primary Care Provider [phone] Reason for Visit * Diagnostic Test (Routine) - Closed Specialty Diagnoses / Procedures Referred By Johnnaac yaw Referred To Contact Radiology Diagnoses Cerebral aneurysm without rupture Procedures MRI Brain wo Contrast Kash Morfin MD [facility] [address] DIAGNOSTIC [place] [address] [place] [address] Referral ID Status Reason Start Date Expiration Date V isits Requested Visits Authorized [id number] Closed Specialty Service Requested 08/12/2017 08/12/2018 2 2 Encounter Details Date Type Department Care Team (Latest Contact Info) Description 02/09/2018 12:17 PM EST - 02/09/2018 11:59 PM [facility] Hospital [place] [address] Kash Morfin MD [facility] DIAG[place]ST[place] [address] Discharge Disposition: Home Social History Tobacco Use [...] 0.5 mg by mouth nightly as needed. / tab 12/07/2018 dexamethasone (DECADRON) 2 mg Tablet [...] as of this encounter Progress Notes * Tere Gomez RN - 02/03/2018 1:29 PM EST MRI PRE-SEDATION ASSESSMENT NOTE NAME: Lianna Yuan AGE: 82 y.o. : [address] [place] [phone] Female [phone] (home) No relevant phone numbers on file. Neda Keller MD None No Known Allergies Date/Time of call: February 03, 2018/1:29 PM/ PREVIOUS MRI SCAN? Yes HEIGHT: 4'9'' WEIGHT: 128 lbs SCHEDULED SCAN: MRI BRAIN WO CONTRAST [[id number]]: Supine, 80 mins SUBJECTIVE: I am claustrophobic CAN YOU LAY FLAT? yes AIRWAY ISSUES? Difficult airway DO YOU HAVE ANY INVOLUNTARY MOVEMENTS? (explain) DO YOU HAVE ANY PAIN? DO YOU TAKE PAIN MED ON A DAILY BASIS? ASSESSMENT: Appropriate for PO sedation PLAN: Ativan 0.5 X1 ( XXX ) You must have a horse and wagon driver present when you check in. This patient has been informed that they require a horse and wagon driver to drive them home after this procedure. In the absence of a horse and wagon driver, IR will not be able to sedate for your scan. Pt verbalized understanding of these instructions during the pre-procedure education via phone. Yes [place] of horse and wagon driver: Daughter Phone number: PRIOR SCAN DATE/S: SEDATION TYPE: SUCCESSFUL: 08/11/2017 MRI Head angiogram Ativan .05 MG PO Yes 02/09/18 MRI brain w/o contrast Ativan 0.5 mg po yes ? Revised 08/03/17 documented in this encounter Plan of Treatment Not on file documented as of this encounter Procedures Procedure Name Priority Date/Time Associated Diagnosis Comments MRI BRAIN WO CONTRAST Routine 02/09/2018 2:32 [...] right ICA. 4:43 PM Kash Morfin MD [facility] MRI ORDERABLES * MRI Brain wo Contrast [...] ORDERABLES documented in this encounter Visit Diagnoses Not on filedocumented in this encounter Administered Medications Inactive Administered Medications - up to 3 most recent administrations Medication Order MAR Action Action Date Dose Rate Site LORazepam (ATIVAN) 0.5 mg tablet 1 dose, Starting on Wed02/09/18 at 1234, Until Wed02/09/18 at 1245, TERE GOMEZ: cabinet override Given 02/09/2018 12:45 PM EST 0.5 mg documented in this encounter Care Teams Lcpc Relationship Specialty Start Date End Date Neda Keller MD [address] [place] [phone] PCP - General 01/28/10 03/05/22 documented as of this encounter
--- OUTSIDE RECORDS SUMMARY | 2024-02-07 16:36 | XMS_ITS | Encounter Summary ---
Author Organization [facility] Address [facility] [place] [address] Care Team Providers Care Crystalizer Tender Name Role Phone Neda Keller MD Primary Care Provider Reason for Visit * Reason Comments Follow-up s/p Rt ICA pipeline aneurysm stent with imaging prior Encounter Details Date Type Department Care Team (Late st Contact Info) Description 12/07/2018 3:30 PM EDT [place] [address] Kash Morfin MD [facility] [place] [address] Cerebral aneurysm without rupture Social History Tobacco [...] Sign Reading Time Taken Comments Blood Pressure 122/76 12/07/2018 3:49 PM EDT Pulse 53 12/07/2018 3:49 PM EDT Temperature - - Respiratory Rate - - Oxygen Saturation - - Inhaled Oxygen Concentration - - Weight 58.7 kg (129 lb 6.6 oz) 12/07/2018 3:49 P M EDT Height 147.3 cm (4' 10) 12/07/2018 3:49 PM EDT Body Mass Index 27.05 12/07/2018 3:49 PM EDT documented in this encounter Progress Notes * Kash Morfin MD - 12/07/2018 3:30 PM EDT [facility] Office Note Note Author: Kash Morfin MD Chief Complaint: Cerebral aneurysm followup History of present illness: History of present illness: Lianna Yuan is a 82 y.o. 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 She has diminished headaches and no evident problems with vision in her right eye. Her left eye vision has deteriorated to the point where it provides little vision. She now has no double vision. Current Outpatient Medications on [...] Take 50 mg by mouth daily. ??? apixaban (ELIQUIS) 2.5 mg Tablet 1 tablet Every 12 hours. No current facility-administered medications on file prior to visit. Allergies Allergen Reactions ??? Atenolol Other reaction(s): Headache ??? Franc Inhibitors Other reaction(s): Cough ??? Clonidine ??? Diltiazem ??? 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 Assessment: Lianna Yuan now has no impairing symptoms from her right cavernous ICA aneurysm. It is only slightly smaller and she does have some mild ophthalmoplegia on the right. She has recently been put on an oral anticoagulant, probably for atrial fibrillation. We discuss the likelihood that this is reasonably safe for her. BUt we do need to continue to monitor the aneurysm for greater recanalization or growth. Plan: Follow-up MRA in 1 year Continue ASA Of this 15 minute visit, 15 minutes was spent in counseling and coordination of care. documented in this encounter Plan of Treatment Not on file documented as of this encounter Visit Diagnoses Diagnosis Cerebral aneurysm without rupture Cerebral aneurysm, nonruptured documented in this encounter Care Teams Crystalizer Tender Relationship Specialty Start Date End Date Neda Keller MD [address] [place] [phone] PCP - General 01/28/10 03/05/22 documented as of this encounter
--- OUTSIDE RECORDS SUMMARY | 2024-02-07 16:36 | XMS_ITS | Encounter Summary ---
Author Organization [facility] Address [facility] [place] [address] Care Team Providers Care Hand Nailer Name Role Phone Qamar Benavides MD Primary Care Provider [phone] Encounter Details Date Type Department Care Team (Late st Contact Info) Description 03/09/2022 10:25 PM EST Ancillary Procedure Radiology Library at [facility] [place] [phone] Qamar Benavides MD [address] [place] [address] Social History Tobacco Use Types Packs/Day Years [...] Diagnosis Comments FILM LIBRARY STORAGE ONLY CT HEAD Routine 03/09/2022 10:21 PM EST documented in this encounter Results * Film Library- Storage Only CT Head (03/09/2022 10:21 PM EST) Narrative [facility] - 03/09/2022 10:21 PM EST This exam is auto-finalizing. It's purpose is for storage only. Qamar Benavides MD [facility] FILM LIBRARY ORD ERABLES [place], [place] documented in this encounter Visit Diagnoses Not on filedocumented in this encounter Care Teams Hand Nailer Relationship Specialty Start Date End Date Qamar Benavides MD [address] [place] [address] PCP - General Family Medicine 03/06/22 documented as of this encounter
--- OUTSIDE RECORDS SUMMARY | 2024-02-07 16:36 | XMS_ITS | Encounter Summary ---
Author Organization Formerly [facility] Address [facility] [place] [address] Care Team Providers Care Bag Loader Machine Operator Name Role Phone Qamar Benavides MD Primary Care Provider [phone] Encounter Details Date Type Department Care Team (Late st Contact Info) Description 03/03/2022 Telephone Neurosurgery at [facility] [place] [address] Raisa Rowland Social History Tobacco [...] * Telephone Encounter - Jannet Phillips - 03/12/2022 7:49 AM EST Per telephone encounter on 03/10/22 pt no longer needs MRA completed. PT was in ED and completed CTA.Shruti Olguin would still like to see pt on 04/02/22 as scheduled. Sent rad request on 03/11 to cancel MRA. Closing encounter * Telephone Encounter - Jannet Phillips - 03/06/2022 1:16 PM EST Spoke to pt and completed screening questions. Please coordinate MRA brain on the next available or Wednesday with earliest check in at 11 am. UNAVAILABLE on 03/12,03/26,03/27. ALP available from 1- 340 pm Sent rad request. PSC Scheduling Instructions ?? Provider: Shruti Olguin APRN ?? Visit Type: OV ?? Appt Note: 2 yr OV, s/p Rt ICA Pipeline Aneurysm Stent 06/08/16 MRA Brain Prior ?? Imaging appt needed?: MRI and MRA PSC to ask patient Screening Questions? Yes PSC to coordinate same day appt with Radiology? Yes * Telephone Encounter - Raisa Rowland - 03/03/2022 9:58 AM EST Once orders are entered, please use recall to schedule: PSC Scheduling Instructions Provider: Shruti Olguin APRN Visit Type: OV Appt Note: 2 yr OV, s/p Rt ICA Pipeline Aneurysm Stent 06/08/16 MRA Brain Prior Imaging appt needed?: MRI and MRA PSC to ask patient Screening Questions? Yes PSC to coordinate same day appt with Radiology? Yes Additional Info Needed: * * Telephone Encounter - Raisa Rowland - 03/03/2022 9:56 AM EST Jose Bahena, Could you please enter orders for 2 year f/u MRI and MRA per [facility] 2019 notes? Estrella Kline * Telephone Encounter - Raisa Rowland - 03/03/2022 9:55 AM EST Copied from [facility] #[id number]. Topic: Specialty Dept CRMs - Appointment Needed >> Mar 03, 2022 9:48 AM Eros Perkins wrote: Appt Needed Specialist : former pt of Kash Morfin MD Relationship (if other than patient-full name): Lianna Yuan and daughter, Shannan Villalta Appt. Type Needed: FUV Reason for Visit: Lianna Yuan is asking to schedule her 2 yr FUV per 11/07/[address] Morfin. Lianna asked to have this scheduled for the same day as the MRI or MRA scan that is needed. 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
--- OUTSIDE RECORDS SUMMARY | 2024-02-07 16:36 | XMS_ITS | Encounter Summary ---
Author Organization [facility] Address [facility] [place] [address] Care Team Providers Care Retort Furnace Helper Name Role Phone Qamar Benavides MD Primary Care Provider [phone] Encounter Details Date Type Department Care Team (Late st Contact Info) Description 06/18/2022 Telephone Neurosurgery at [facility] [place] [phone] Shruti Olguin APRN [facility] [place] [address] Social History Tobacco Use Types Packs/Day Years [...] * Telephone Encounter - Rachel Ny - 06/18/2022 1:30 PM EDT 2 yr recall entered in edh ----- Message from Shruti Olguin APRN sent at 06/18/2022 1:01 PM EDT ----- 2 years MRA head and OV with AP documented in this encounter Plan of Treatment Not on file documented as of this encounter Visit Diagnoses Not on filedocumented in this encounter Care Teams Retort Furnace Helper Relationship Specialty Start Date End Date Qamar Benavides MD [address] [place] [address] PCP - General Family Medicine 03/06/22 documented as of this encounter
--- OUTSIDE RECORDS SUMMARY | 2024-02-07 16:36 | XMS_ITS | Encounter Summary ---
Author Organization [facility] Address [facility] [place] [address] Care Team Providers Care Return Agent Airport Name Role Phone Qamar Benavides MD Primary Care Provider Reason for Referral * Physical Therapy (Routine) - Closed Specialty Diagnoses / Procedures Referred By Contoziel t Referred To Contact Physical Therapy Diagnoses Vestibular disorder, left Shruti Olguin APRN [facility] [place] [address] Referral ID Status Reason Start Date Expiration Date V isits Requested Visits Authorized [id number] Closed Evaluate and Treat Non PCP 06/18/2022 12/15/2022 12 12 Scheduling Instructions Please contact daughterShannan, at [phone], for scheduling. 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 Marfan's syndrome ??? Difficult airway Overview Note: 11/06/05 Required bougmu w/ diego 2 and record noted difficult airway 06/08/16 poor dentition, limited moth opening and limited neck mobility observed by technical document writer; ??? 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 Morfin Post-treatment, had R lid ptosis and dizziness. 08/11/17 MRA small area of filling 11/08/19 MRA stable filling, little benefit to additional stenting, Dr. Morfin ??? 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 Cerebral aneurysm HISTORY: Lianna Yuan Returns in followup with CTA. Establishing care from Dr. Morfin. Last seen in 2019. Feels well with regard to aneurysm. No headaches or vision changes. Recent vision exam normal. For almost a year, has been feeling very off balance, feels it only when outside. Believes that it came on gradually. Feels it both while sitting and while walking. Denies any feeling of abnormal movement (rocking or spinning), just feels unstable. Does not have any feeling of lightheadedness or near syncope. No hearing loss or ear pain/fullness. No numbness or tingling of feet or hands. PHYSICAL EXAM: No acute distress Awake, Alert, Interactive Pupils equal and reactive, EOMs full without nystagmus. Head thrust positive left. Moving all extremities with full strength Gait independent and stable Romberg negative Fukuda marching step left drift IMAGING & OTHER RESULTS: 03/09/22 CTA reviewed. Known residual filling of TAMMY cavernous aneurysm (3mm) is unchanged. Stent remains patent. 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 Given size of original aneurysm and patient's otherwise good health, will continue surveillance. Repeat MRA head 2 years. Vestibular disorder, left Imbalance of gradual onset with exam findings suggestive of left vestibular weakness. Discussed possible etiologies (infectious/inflammatory versus ischemic). Emphasized that regardless of case, she would benefit from vestibular rehab. Will refer to vestibular PT provider at [facility]. documented in this encounter Miscellaneous Notes * Assessment & Plan Note - Shruti Olguin APRN - 06/18/2022 12:42 PM EDT Associated Problem(s): Vestibular disorder, left Imbalance of gradual onset with exam findings suggestive of left vestibular weakness. Discussed possible etiologies (infectious/inflammatory versus ischemic). Emphasized that regardless of case, she would benefit from vestibular rehab. Will refer to vestibular PT provider at [facility]. 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 Given size of original aneurysm and patient's otherwise good health, will continue surveillance. Repeat MRA head 2 years. 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
--- OUTSIDE RECORDS SUMMARY | 2024-02-07 16:36 | XMS_ITS | Encounter Summary ---
Author Organization [facility] Address [facility] [place] [address] Care Team Providers Care Phlebotomist Prn Name Role Phone Neda Keller MD Primary Care Provider Encounter Details Date Type Department Care Team (Late st Contact Info) Description 10/18/2019 Orders Only Neurosurgery at [facility] [place] [address] Pamela Mckeon RN Cerebral aneurysm Social History Tobacco Use Types Packs/Day [...] nonruptured documented in this encounter Care Teams Phlebotomist Prn Relationship Specialty Start Date End Date Neda Keller MD [address] [place] [address] PCP - General 01/28/10 03/05/22 documented as of this encounter
--- OUTSIDE RECORDS SUMMARY | 2024-02-07 16:37 | XMS_ITS | Encounter Summary ---
Author Organization [facility] Address 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 Procedures PRO PERM OCCLUSION/EMBOLIZATION, PERCUT, INSURANCE EXECUTIVE @TRANSCATHETER OCCLUSION/EMBOLIZATION FOR TUMOR DESTRUCTION Referral ID Status Reason Start Date Expiration Date Visits Re quested Visits Authorized [id number] 1 1 Encounter Details Date Type Department Care Team (Latest Contact Info) Description 06/08/2016 6:00 AM EDT - 06/10/2016 12:00 PM EDT Hospital Encounter [address] [place] [address] Kash Morfin MD [facility] [address] [place] [address] [address] nerve palsy, right Discharge Disposition: Home Social History Tobacco Use [...] Sign Reading Time Taken Comments Blood Pressure 124/73 06/10/2016 8:00 AM EDT Pulse 62 06/10/2016 8:00 AM EDT Temperature 35.9 ??C (96.6 ??F) 06/10/2016 8:00 AM ED T Respiratory Rate 16 06/10/2016 8:00 AM EDT Oxygen Saturation 98% 06/10/2016 8:00 AM EDT Inhaled Oxygen Concentration - - Weight 61.2 kg (135 lb) 06/08/2016 5:15 PM EDT Height 147.3 cm (4' 10) 06/08/2016 5:15 PM EDT Body Mass Index 28.22 06/08/2016 5:15 PM EDT documented in this encounter Discharge Summaries * August Preston PA - 06/10/2016 8:42 AM EDT Inpatient - Discharge Summary Patient Name: Lianna Yuan Patient Age: 80 y.o. Birthdate: 1935 Admit date: 06/08/2016 Discharge date and time: 06/10/2016 Attending Physician: Kash Morfin MD Discharge Diagnoses (Hospital Problems): Active Hospital Problems Diagnosis ??? 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 Marfan's syndrome ??? Difficult airway 11/06/05 Required venita cabrera/ diego 2 and record noted difficult airway 06/08/16 poor dentition, limited moth opening and limited neck mobility observed by lyric writer; ??? 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 Cerebral aneurysm Resolved Hospital Problems Diagnosis Date Resolved No resolved problems to display. PMH: HTN Hypercholesterolemia Anxiety Hx cervical spine surgery with right arm injury Operations/Major Procedures: 06/08/16 s/p R ICA pipeline embolization, Dr Morfin History of Presentation: Lianna Yuan is a 80 y.o. woman with an unruptured cerebral aneurysm, referred for evaluation and possible treatment by Dr. Crouch. In Jan 2016 her daughter first noticed discongugate eye movements. This has gradually worsened to produce noticeable double vision for her on rightward vision. She also endorses substantially decreased ability to read from the right eye. No headache. ?? She has a Marfan syndrome and she sees Dr. Villasenor in [place] for some type of dilated cardiomyopathy. Hospital Course: Patient was admitted 06/08/16 and underwent successful R ICA pipeline embolization by Dr Morfin. She was monitored closely post procedure and remained stable. She is now being d/c'd to home in stable condition. Important Studies and Lab Data: Lab Results Component Value Date/Time WBC 7.6 06/09/2016 04:07 AM HGB 12.7 06/09/2016 04:07 AM HCT 38.7 06/09/2016 04:07 AM PLATELET 151 06/09/2016 04:07 AM CREATININE 0.55 (L) 05/13/2016 10:30 AM Pending Studies and Lab Data: No current labs Discharge Conditions/Prognosis: Stable Discharge to: Home Discharge Medications: Your Medications New Medications Dose Details acetaminophen 325 mg Tab Commonly known as: TYLENOL Take 2 tablets by mouth every 4 hours as needed for Pain (mild pain, fever). 650 mg Quantity: 30 tablet Refills: 1 Continued medications with new dosing Dose Details clopidogrel 75 mg Tab Commonly known as: PLAVIX Take 1 tablet by mouth daily. Indications: pt not sure on dosage What changed: how much to take 75 mg Quantity: 90 tablet Refills: 3 Continued medications, unchanged Dose Details amLODIPine 5 mg Tab Commonly known as: NORVASC Take 5 mg by mouth daily. 5 mg Refills: 0 aspirin 81 mg Chew Take 81 mg by mouth daily. 81 mg Refills: 0 meTOPROLOL tartrate 25 mg Tab Commonly known as: LOPRESSOR Take 25 mg by mouth daily. 1.5 tabs 25 mg Refills: 0 simvastatin 20 mg Tab Commonly known as: ZOCOR Take 20 mg by mouth nightly. 20 mg Refills: 0 Updated Allergies/ADRs: No Known Allergies Follow-up Recommendations for Providers: See Below Instructions Given to Patient at Discharge: Patient Instructions Primary Reason for Hospitalization: Cerebral Aneurysm Condition at Discharge: Stable Special Physician Instructions: Discharge Instructions ACTIVITY: - You may shower/bathe. Have someone near in case you need help. - Increase your activity as tolerated - You may tire easily, so frequent rest periods may be necessary - No heavy lifting for first two weeks - Ask your doctor when you can drive CALL YOUR DOCTOR FOR: - Worsening headaches - Persistent clear nasal dripping - Unsteadiness when walking/new weakness - Slurred speech - Visual changes - Drowsiness/confusion - Nausea/vomiting - Convulsions/seizures - Pain not relieved with mild medication Anti-coagulation follow up: Continue Aspirin and Plavix as prescribed Activity level: As tolerated Diet: Regular Driving: No Shower/Bath: [place] Wound Care: None Follow up Appointments: Please follow up with Dr Morfin in 6 months with Cerebral Angiogram IMPORTANT PHONE NUMBERS: Wednesday - Wednesday (8AM to 5PM): ?? Outpatient nurse - Sarah Santiago RN: ?? Inpatient associate providers - August Preston PA-C, August Cunningham PA-C, Pamela Merlos, CONTACT CENTER TEAM LEAD: ?? Interventional Radiology - Dr. Morfin After office hours (5PM to 8AM) and on weekends you can reach neurosurgery by calling the hospital bullet slug casting machine operator at and ask for the Neurosurgery resident on-call Neurology/Neurosugery (5W) and Neuro Special Care Unit (NSCU): CC: Neda Keller MD documented in this encounter Discharge Instructions * Patient Instructions* August Preston PA - 06/10/2016 8:37 AM EDT Primary Reason for Hospitalization: Cerebral Aneurysm Condition at Discharge: Stable Special Physician Instructions: Discharge Instructions ACTIVITY: - You may shower/bathe. Have someone near in case you need help. - Increase your activity as tolerated - You may tire easily, so frequent rest periods may be necessary - No heavy lifting for first two weeks - Ask your doctor when you can drive CALL YOUR DOCTOR FOR: - Worsening headaches - Persistent clear nasal dripping - Unsteadiness when walking/new weakness - Slurred speech - Visual changes - Drowsiness/confusion - Nausea/vomiting - Convulsions/seizures - Pain not relieved with mild medication Anti-coagulation follow up: Continue Aspirin and Plavix as prescribed Activity level: As tolerated Diet: Regular Driving: No Shower/Bath: OK Wound Care: None Follow up Appointments: Please follow up with Dr Morfin in 6 months with Cerebral Angiogram IMPORTANT PHONE NUMBERS: Wednesday - Wednesday (8AM to 5PM): ?? Outpatient nurse - Sarah Santiago, RN: ?? Inpatient associate providers - August Preston PA-C, August Cunningham PA-C, Pamela Merlos, CONTACT CENTER TEAM LEAD: ?? Interventional Radiology - Dr. Morfin After office hours (5PM to 8AM) and on weekends you can reach neurosurgery by calling the hospital bullet slug casting machine operator at and ask for the Neurosurgery resident on-call Neurology/Neurosugery (5W) and Neuro Special Care Unit (NSCU): CC: Neda Keller MD documented in this encounter Medications at Time of Discharge Medication Sig Dispensed Refills Start Date End Date aspirin 81 mg Tablet, Chewable Take 81 mg by mouth daily. acetaminophen (TYLENOL) 325 mg Tablet Take 2 tablets by mouth every 4 hours as needed for Pain (mild pain, fever). 30 tablet 1 06/10/2016 clopidogrel (PLAVIX) 75 mg TabletIndications:pt not sure on dosage Take 1 tablet by mouth daily. Indications: pt not sure on dosage 90 tablet 3 06/10/2016 12/07/2018 meTOPROLOL tartrate (LOPRESSOR) 25 mg Tablet Take 50 mg by mouth daily. 12/17/2020 amLODIPine (NORVASC) 5 mg Tablet Take 5 mg by mouth daily. 12/07/2018 documented as of this encounter Progress Notes * Lorraine Hernández RN - 06/10/2016 12:00 PM EDT Lianna Yuan discharged to home by private car with daughter. All belongings sent with patient. IVAremoved, incision healing well, skin free from pressure ulcers. Discharge instructions, medications, and follow-up appointments reviewed, education provided on monitoring parameters & numbers to call for questions or concerns, all questions encouraged & answered. Patient instructed to call with concerns. * Jose G Burgos - 06/10/2016 6:58 AM EDT NEUROSURGERY PROGRESS NOTE 2 Days Post-Op ID: Lianna Yuan is a 80 y.o. female INTERVAL Hx: Doing well No cortés No n/v MEDICATIONS: Scheduled Meds: ??? dexamethasone 4 mg Oral BID ??? amLODIPine 5 mg Oral Daily ??? aspirin 81 mg Oral Daily ??? clopidogrel 75 mg Oral Daily ??? meTOPROLOL tartrate 37.5 mg Oral Daily ??? simvastatin 20 mg Oral QPM ??? pantoprazole 40 mg Oral Daily Continuous Infusions: PRN: acetaminophen, oxyCODONE-acetaminophen, ondansetron, labetalol, hydrALAZINE EXAM: Temp: [36.3 ??C (97.3 ??F)-36.9 ??C (98.4 ??F)] Heart Rate: [67-87] Resp: [16-18] BP: (110-140)/(65-80) SpO2: [93 %-98 %] Heart Rate from SPO2: [64 bpm-83 bpm] I/O: Intake/Output Summary (Last 24 hours) at 06/10/16 0703 Last data filed at 06/10/16 0539 Gross per 24 hour Intake 1927 ml Output 2150 ml Net -223 ml GEN:NAD NEURO:A+Ox3 GCS 15 Speech fluent and appropriate. Naming and repetition intact. PERRL. Rt CN palsy at baseline No facial asymmetry Tongue midline MOTOR: RUE:5/5 LUE:5/5 RLE: 5/5 LLE: 5 No pronator drift CV: CV: Right groin dressing c/d/i, bruising noted @ groin, Rt DP pulse is palpable, Rt foot is warm LABS: Recent Labs 06/09/16 0407 WBC 7.6 HGB 12.7 PLATELET 151 No results for input(s): NA, K, CL, CO2, BUN, CREATININE in the last 72 hours. Invalid input(s): OSMOLALITY No results for input(s): PT, INR in the last 72 hours. A/P: s/p R ICA pipeline embolization, elective Plan -neuro stable -c/w ASA, Plavix -SCDs to b/l LE while in bed -IS x10/h while awake -DC today Associated attestation - Kash Morfin MD - 06/11/2016 6:34 AM EDT Seen this morning. Slept well. No worsening headache or new neurologic symptoms. Unchanged diplopia. OK for discharge today. RTC in 3 weeks * Aleisha Selby RN - 06/09/2016 4:28 PM EDT Report received from Yonathan ARAUJO and patient care assumed. A&Ox 3. Neuro assessment unremarkable. Denies pain. Right groin puncture site dressing without new drainage and soft. Ambulates with steady gait. Oriented to environment. Left resting in bedside chair, family in attendance. * Yonathan Al RN - 06/09/2016 2:53 PM EDT Patient transferred to [facility]. Patient walked over to her new room without difficulty. Patient denies the Need to void at this time, hough out at 11, report given prior to transfer. * Rogelio Farfan DO - 06/09/2016 4:24 AM EDT NEUROSURGERY PROGRESS NOTE 1 Day Post-Op ID: Lianna Yuan is a 80 y.o. female INTERVAL Hx: Doing well Some staining of Rt groin dressing, changed No cortés No n/v MEDICATIONS: Scheduled Meds: ??? amLODIPine 5 mg Oral Daily ??? aspirin 81 mg Oral Daily ??? clopidogrel 75 mg Oral Daily ??? meTOPROLOL tartrate 37.5 mg Oral Daily ??? simvastatin 20 mg Oral QPM ??? pantoprazole 40 mg Oral Daily Or ??? pantoprazole 40 mg Intravenous Daily ??? dexamethasone 4 mg Oral Q6H MARIE Continuous Infusions: ??? sodium chloride 0.9% 1,000 mL (06/08/162115) PRN: acetaminophen, oxyCODONE-acetaminophen, ondansetron, labetalol, hydrALAZINE EXAM: Temp: [36.2 ??C (97.2 ??F)-36.6 ??C (97.9 ??F)] Heart Rate: [57-78] Resp: [7-19] BP: (110-133)/(61-94) SpO2: [92 %-99 %] Heart Rate from SPO2: [58 bpm-76 bpm] I/O: Intake/Output Summary (Last 24 hours) at 06/09/16423 Last data filed at 06/09/16 040 Gross per 24 hour Intake 3600 ml Output 3325 ml Net 275 ml GEN:NAD NEURO:A+Ox3 GCS 15 Speech fluent and appropriate. Naming and repetition intact. PERRL. Rt CN palsy at baseline No facial asymmetry Tongue midline MOTOR: RUE:5/5 LUE:5/5 RLE: 5/5 LLE: 5/5 No pronator drift CV: CV: Right groin dressing some blood, bruising noted @ groin, Rt DP pulse is palpable, Rt foot is warm LABS: Recent Labs 06/09/16 0407 WBC 7.6 HGB 12.7 PLATELET 151 No results for input(s): NA, K, CL, CO2, BUN, CREATININE in the last 72 hours. Invalid input(s): OSMOLALITY No results for input(s): PT, INR in the last 72 hours. A/P: s/p R ICA pipeline embolization, elective Plan -neuro stable -d/c heparin drip this am -c/w ASA, Plavix -check HH this am -MRA COW this am -SCDs to b/l LE while in bed -IS x10/h while awake Associated attestation - Kash Morfin MD - 06/11/2016 6:41 AM EDT Feeling well except little sleep overnight. Minor headache No change in vision, diplopia Persistent CN palsy on exam. R groin hematoma, flat and soft. 2+ femoral and pedal pulses Discussed procedure and went over results. Continue to monitor today as coagulation returns to normal. Probably D/C tomorrow. Continue ASA, clopidogrel for 6 months. * Fabiola Blas RN - 06/09/2016 12:24 AM EDT 1930: PTT > 160; MD Farfan aware, heparin stopped for 1 hour, instructed to get PTT in 1 hour before turning gtt back on. 2029: PTT drawn 2100: PTT 133; instructed to restart heparin gtt at 2200 and decrease rate by 200 according to MAR order 0: Pt bleed through old Art line site; dressing and bed saturated with blood. Pressure held for 15 minutes; bleeding stopped. Groin site dressing saturated with blood, MD Farfan at bedside to redress site. 2210: Heparin gtt restarted at 700 u/hr. Will redraw PTT at 0400. 0200: Groin site dressing with new drainage and increased bruising, site soft. MD Farfan aware. 0330: Urine pink tinged; groin site with increased bruising and bleeding on dressing. MD at bedside. 0400: Heparin gtt stopped. No PTT redraw needed per MD. * Kash Morfin MD - 06/08/2016 6:18 PM EDT NS POSTOP NOTE 80 y.o. female s/p R ICA pipeline embolization Stable since surgery. ??? amLODIPine 5 mg Oral Daily ??? aspirin 81 mg Oral Daily ??? clopidogrel 75 mg Oral Daily ??? meTOPROLOL tartrate 37.5 mg Oral Daily ??? simvastatin 20 mg Oral QPM ??? pantoprazole 40 mg Oral Daily Or ??? pantoprazole 40 mg Intravenous Daily ??? dexamethasone 4 mg Oral Q6H MARIE Temp: [36.3 ??C (97.3 ??F)-36.5 ??C (97.7 ??F)] Heart Rate: [62-78] Resp: [7-19] BP: (110-133)/(61-94) SpO2: [93 %-99 %] Heart Rate from SPO2: [62 bpm-76 bpm] I/O last 3 completed shifts: In: 1974 [P.O.:200; I.V.:1775] Out: 2124 [Urine:2125] Examined in the NSCU R nerve palsy (baseline) FC x 4 Groin site mildly oozy, pressure held No results found for this or any previous visit (from the past 24 hour(s)). A/P: 80 y.o. female pod 0 s/p R ICA embolization. Neurologically stable. - close neuro monitoring - post op Linda CT done - continue ASA/plavix - heparin gtt o/n * Anthony Archibald RN - 06/08/2016 12:45 PM EDT 1245: Break relief; Pt resting quietly; VSS; reverse trendelenberg; right groin dressing with approximately 1 mm drainage advance from marked extents. Surrounding area soft and non-tender. 1306: Family visiting in PACU. documented in this encounter Miscellaneous Notes * Plan of Care - Yonathan Al RN - 06/09/2016 1:50 PM EDT Problem: Patient Care Overview Goal: Plan of Care Review Outcome: Ongoing (Interventions Implemented as Appropriate) 06/08/16 1808 06/09/16 1000 Coping/Psychosocial Plan Of Care Reviewed With -- patient Plan of Care Review Progress progress toward functional goals as expected -- OUTCOME EVALUATION NOTE: OUTCOME SUMMARY: Patient alert and oriented, blurred vision and eye distortion at her baseline. Patient denies pain and has been up walking to take a shower. Patient eating and drinking without difficulty. PLAN MOVING FORWARD: Transfer to [facility] when bed clean INDIVIDUALIZED FALL PREVENTION INTERVENTIONS: Patient-specific fall risk factors per assessment: [current deficits]: Blurred/double vision Assistance [level of assistance required for transfers and ambulation]: Standby Supervision [direct monitoring required during toileting and ADLs]: Arms reach Surveillance [continuous indirect monitoring]: Telemetry Patient-specific fall prevention interventions for sensory deficits provided, if applicable: CPG GOAL OUTCOME EVALUATION: * Initial Assessments - Sly Gonzalez MSW - 06/09/2016 8:30 AM EDT Office of Care Management Initial Assessment EZEQUIEL Bledsoe reviewed record and discussed patient with Care Team. Source of Information: Patient, Chart, Treatment Team Introduced self/reviewed role; services accepted. Reason for Hospitalization: R ICA pipeline embolization No past medical history on file. Hospitalizations Within the Past 30 Days: no Anticipated Length Of Stay (If known): 3 days Current Decision-Making Capacity: good Advance Care Planning: yes - daughter will bring in Current Coping/Education/Information Needs: none Current Functional Ability: good Functional Status Prior to Admission: good Home Environment: two story home with 12 stairs to bedroom bathroom- can stay on the first floor ifneeded Social & Family Supports/Community Resources: , 2 daughters , 7 grandchildren, great grandchildren, fiends Behavioral Health History: denies Substance Use/Abuse: reports none- occasional drink Other Pertinent/Service Specific Information: none Health/Prescription Coverage: Primary Insurance: MEDICARE PART A & B Secondary Insurance: AARP Prescription Coverage: yes [facility] [address] [place] [address] Other: none Primary Care Provider: Neda Keller MD [phone] Patient/Caregiver Goals of Treatment: relax and make sure this hospitalization will be good- the last one was awful Potential Needs for Transition of Care: Rehab/SNF: NA Home Health: NA DME: NA Dialysis: NA Community Resources: NA Transportation: NA Other: none Anticipated Barriers to Discharge/Special Considerations: none Plan: Home with no needs A member of the Care Management team will continue to monitor progress, follow for continuity of care and assist with transition of care planning. EZEQUIEL Bledsoe Pager: [phone] * Plan of Care - Fabiola Blas RN - 06/09/2016 3:09 AM EDT Problem: Patient Care Overview Goal: Plan of Care Review Outcome: Ongoing (Interventions Implemented as Appropriate) OUTCOME EVALUATION NOTE: OUTCOME SUMMARY: Neuro intact.VSS. NSR on tele. Denies pain. See progress note. PLAN MOVING FORWARD: Explain all nursing interventions. Monitor neuro's and vitals q 2 hours. Keep Pt attached to monitor per MD orders. Strict I&O's. Encourage PO intake of food and fluids. Encourage to turn q 2 hours to promote skin integrity. Assess pain q 2 hours and PRN treating as needed.Encourage ADL's to max functional capacity. INDIVIDUALIZED FALL PREVENTION INTERVENTIONS: Patient-specific fall risk factors per assessment: post op, coiling Assistance: Bedrest Supervision: Eyes on, Arms reach Surveillance: Bed locked in low position, call escobar within reach, purposeful hourly rounding, bed/chair alarm on, room near nurses station Patient-specific fall prevention interventions for sensory deficits provided: N/A CPG GOAL OUTCOME EVALUATION: Continue care plan as documented. * Plan of Care - Gaviota Whitley RN - 06/08/2016 6:23 PM EDT Problem: Patient Care Overview Goal: Plan of Care Review Outcome: Ongoing (Interventions Implemented as Appropriate) 06/08/16 1808 Coping/Psychosocial Plan Of Care Reviewed With patient Plan of Care Review Progress progress toward functional goals as expected OUTCOME EVALUATION NOTE: OUTCOME SUMMARY: Patient arrived from PACU at 1500, and assumed care of patient. VSS. NSR, QTC 532, notified and EKG ordered. No complaints of pain. Access site dressing saturated, per neurovasc surgery, dressing change performed. Site looked clean, dry, no bleeding. Heparin gtt infusing. A&O x4, right eye does not abduct, present prior to admission. Will continue to monitor access site and intervene as needed. Will continue to monitor. PLAN MOVING FORWARD: See above. INDIVIDUALIZED FALL PREVENTION INTERVENTIONS: Patient-specific fall risk factors per assessment: [current deficits]: Invasive catheters, generalized weakness, recent surgery. Assistance [level of assistance required for transfers and ambulation]: Unknown. Yet to get out of bed. Supervision [direct monitoring required during toileting and ADLs]: Continuous. Alarms on and audible. Frequent RN checks. Surveillance [continuous indirect monitoring]: Skin, fall, access site and hemodynamic monitoring. Patient-specific fall prevention interventions for sensory deficits provided, if applicable: [X] Yes CPG GOAL OUTCOME EVALUATION: Goal: Individualization & Mutuality Outcome: Ongoing (Interventions Implemented as Appropriate) 06/08/16 1717 Mutuality/Individual Preferences What Anxieties, Fears or Concerns Do You Have About Your Health or Care? none What Questions Do You Have About Your Health or Care? none What Information Would Help Us Give You More Personalized Care? had an operation on my neck, now can't lift arms. Goal: Fall Prevention-Safe Patient Handling Outcome: Ongoing (Interventions Implemented as Appropriate) 06/08/16 1700 06/08/16 1800 Branch Fall Risk History of Falling 0 -- Secondary Diagnosis 15 -- Ambulatory Aids 0 -- Intravenous Therapy/Heparin/Saline Lock 20 -- Gait/Transferring 0 -- Mental Status 0 -- Score 35 -- OTHER Branch Fall Risk Med -- Restraint Interventions Safety Promotion/Fall Prevention -- fall prevention program maintained;nonskid shoes/slippers when out of bed;safety round/check completed Positioning Body Position -- supine Goal: Infection Control Outcome: Ongoing (Interventions Implemented as Appropriate) 06/08/16 17006/08/16 1800 Safety Interventions Isolation Precautions -- standard precautions maintained Infection Prevention -- environmental surveillance performed;rest/sleep promoted;single patient room provided Coping Strategies Supportive Measures active listening utilized;decision-making supported;positive reinforcement provided;relaxation techniques promoted;self-care encouraged -- Goal: Discharge Needs Assessment Outcome: Ongoing (Interventions Implemented as Appropriate) 06/08/16 1808 Discharge Needs Assessment Concerns To Be Addressed no discharge needs identified Readmission Within The Last 30 Days no previous admission in last 30 days Discharge Disposition home or self-care Problem: Skin Integrity Impairment, Risk/Actual (Adult) Goal: Identify Related Risk Factors and Signs and Symptoms Related risk factors and signs and symptoms are identified upon initiation of Human Response Clinical Practice Guideline (CPG) Outcome: Ongoing (Interventions Implemented as Appropriate) 06/08/16 180 Skin Integrity Impairment, Risk/Actual Skin Integrity Impairment, Risk/Actual: Related Risk Factors age extremes;fluid/nutrition status;surgery/procedure;immobility Goal: Skin Integrity/Wound Healing Patient will demonstrate the desired outcomes by discharge/transition of care. Outcome: Ongoing (Interventions Implemented as Appropriate) 06/08/16 180 Skin Integrity Impairment, Risk/Actual (Adult) Skin Integrity/Wound Healing making progress toward outcome Problem: Cardiac Cath/Percutaneous Coronary Intervention (Adult) Goal: Signs and Symptoms of Listed Potential Problems Will be Absent, Minimized or Managed (CardiacCath/Percutaneous Coronary Intervention) Signs and symptoms of listed potential problems will be absent, minimized or managed by discharge/transition of care (reference Cardiac Cath/Percutaneous Coronary Intervention (Adult) CPG). 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 Scanning Provider MEDIA MGR SCAN EXT O RDR/RSLT * (ABNORMAL) APTT (06/09/2016 4:07 AM EDT) Partial Thromboplastin Time 91(H) 25 - 35 sec [facility] Comment: The recommended therapeutic range for full dose, unfractionated heparin at [facility] is 80 ? 114 seconds. The use of the anti-Xa (heparin) level rather than the PTT is recommended for monitoring anticoagulation intensity in critically ill patients receiving unfractionated heparin by continuous IV infusion. Blood specimen (specimen) 06/09/2016 4:07 AM EDT 06/09/2016 4:12 AM EDT Narrative Resulting Agency Comment Spec In Lab Kash Morfin MD HEMATOLOGY ORDERABLE S [facility] [place] [address] * (ABNORMAL) Differential, Automated (06/09/2016 4:07 AM EDT) Pathologist [facility] Neutrophil % 87.6 % [facility] Neutrophil Absolute 6.65(H) 1.70 - 6.10 x10(3)/mc L [facility] Lymph % 10.0 % [facility] Lymphocytes Abs 0.8(L) 0.9 - 3.2 x10(3)/mc L [facility] Monocyte % 1.8 % [facility] Monocyte Abs 0.1(L) 0.3 - 0.9 x10(3)/mc L [facility] Eos % 0.0 % [facility] Eosinophils Abs 0.0 0.0 - 0.4 x10(3)/mc L [facility] Basophil % 0.1 % [facility] Baso Absolute 0.0 0.0 - 0.1 x10(3)/mc L [facility] Immature Gran % 0.50 % [facility] Comment: Immature granulocytes(IG's)percentage and absolute count will include metamyelocytes, myelocytes, and promyelocytes. Blood smears from CBCs yielding IG's will be scanned manually for concordance. If this scan disagrees with the automated IG or if promyelocytes are noted, a manual differential will be performed. Immature Gran Absolute 0.04 0.00 - 0.04 x10(3)/mc L [facility] Blood specimen (specimen) 06/09/2016 4:07 AM EDT 06/09/2016 4:12 AM EDT Narrative Resulting Agency Comment Spec In Lab Kash Morfin MD HEMATOLOGY ORDERABLE S Performing Organization Address City/State/[facility] Co de Phone Number [facility] [place] [address] * Hemogram (06/09/2016 4:07 AM EDT) White Blood Cell 7.6 4.0 - 9.5 x10(3)/[facility] Red Blood Cell 4.13 4.00 - 5.21 x10(6)/[facility] Hemoglobin 12.7 11.7 - 15.5 gm/dL [facility] Hematocrit 38.7 35.7 - 45.8 % [facility] Mean Cell Volume 93.7 82.6 - 94.4 fL [facility] Mean Cell Hemoglobin 30.8 27.1 - 32.0 pg [facility] Mean Cell Hemoglobin Concentration 32.8 31.7 - 35.0 gm/dL [facility] Platelet 151 145 - 357 x10(3)/[facility] RDW Standard Deviation 42.5 37.0 - 46.0 [facility] RDW coefficient of variation 12.3 11.5 - 14.1 % [facility] Mean Platelet Volume 11.4 7.6 - 12.9 fL [facility] NRBC% auto 0.0 % [facility] NRBC Absolute 0.000 0.000 - 0.000 x10(3)/mcL [facility] Blood specimen (specimen) 06/09/2016 4:07 AM EDT 06/09/2016 4:12 AM EDT Narrative Resulting Agency Comment Spec In Lab Kash Morfin MD HEMATOLOGY ORDERABLE S Performing Organization Address [facility] de Phone Number [facility] [place] [address] * (ABNORMAL) APTT (06/08/2016 8:40 PM EDT) Partial Thromboplastin Time 133(Criti jm) 25 - 35 sec [facility] Comment: Called by: JED, Read back by: Fabiola Villaseñor/RAMIN, Date/Time:06/08/16 21:02. The recommended therapeutic range for full dose, unfractionated heparin [place] [facility] is 80 ? 114 seconds. The use of the anti-Xa (heparin) level rather than the PTT is recommended for monitoring anticoagulation intensity in critically ill patients receiving unfractionated heparin by continuous IV infusion. Blood specimen (specimen) 06/08/2016 8:40 PM EDT 06/08/2016 8:44 PM EDT Narrative Resulting Agency Comment Spec In Lab Kash Morfin MD HEMATOLOGY ORDERABLE S Performing Organization Address [facility] de Phone Number [facility] [place] [address] * (ABNORMAL) APTT (06/08/2016 6:55 PM EDT) Partial Thromboplastin Time >160.0(Cr itical) 25 - 35 [facility] Comment: Called by: JED, Read back by: Fabiola Villaseñor/RAMIN, Date/Time:06/08/16 19:34. The recommended therapeutic range for full dose, unfractionated heparin at [facility] is 80 ? 114 seconds. The use of the anti-Xa (heparin) level rather than the PTT is recommended for monitoring anticoagulation intensity in critically ill patients receiving unfractionated heparin by continuous IV infusion. Blood specimen (specimen) 06/08/2016 6:55 PM EDT 06/08/2016 7:01 PM EDT Narrative Resulting Agency Comment Spec In Lab Kash Morfin MD HEMATOLOGY ORDERABLE S Performing Organization Address City/[facility] Co de Phone Number [facility] [place] [address] * EKG 12 Lead (06/08/2016 6:30 PM EDT) Ventricular rate 68 BPM MUSE SYSTEM Atrial Rate 68 BPM MUSE SYSTEM P-R Interval 180 ms MUSE SYSTEM QRS Duration 68 ms MUSE SYSTEM Q-T Interval 432 ms MUSE SYSTEM QTC Calculated (Bezet) 459 ms MUSE SYSTEM Calculated P [place] 70 degrees MUSE SYSTEM Calculated R [place] 3 degrees MUSE SYSTEM Calculated T [place] 65 degrees MUSE SYSTEM INTERPRETATION Normal sinus rhythm Normal ECG When compared with ECG of 05-OCT-2005 17:11, No significant change was found Confirmed by Xavier Sanders MD ([id number]) on 06/10/2016 8:18:27 AM MUSE SYSTEM 06/08/2016 6:30 PM EDT 06/10/2016 8:18 AM EDT Kash Morfin MD ECG ORDERABLES Performing Organization Address 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 documented in this encounter Administered Medications Inactive Administered Medications - up to 3 most recent administrations Medication Order MAR Action Action Date Dose Rate Site amLODIPine (NORVASC) tablet 5 mg 5 mg, Oral, DAILY, First dose on 06/08/16 at 1900, Until Discontinued, Routine Given 06/10/2016 8:24 AM EDT 5 mg Given 06/09/2016 8:23 AM EDT 5 mg Given 06/08/2016 6:55 PM EDT 5 mg aspirin chewable tablet 81 mg 81 mg, Oral, DAILY, First dose on Wed06/08/16 at 1700, Until Discontinued, Routine Given 06/10/2016 8:25 AM EDT 81 mg Given 06/09/2016 8:23 AM EDT 81 mg Given 06/08/2016 6:00 PM EDT 81 mg clopidogrel (PLAVIX) tablet 75 mg 75 mg, Oral, DAILY, First dose on Wed06/08/16 at 1230, Until Discontinued, Routine Given 06/10/2016 8:24 AM EDT 75 mg Given 06/09/2016 8:22 AM EDT 75 mg Given 06/08/2016 12:24 PM EDT 75 mg dexamethasone (DECADRON) tablet 4 mg 4 mg, Oral, EVERY 6 HOURS SCHEDULED, First dose on Wed06/08/16 at 1800, Until Discontinued, Routine Given 06/09/2016 5:44 AM EDT 4 mg Given 06/09/2016 12:05 AM EDT 4 mg Given 06/08/2016 5:59 PM EDT 4 mg dexamethasone (DECADRON) tablet 4 mg 4 mg, Oral, 2 TIMES DAILY, First dose (after last modification) on Wed06/09/16 at 1700, Until Discontinued, Routine Given 06/10/2016 8:24 AM EDT 4 mg Given 06/09/2016 5:51 PM EDT 4 mg heparin 25,000 units in dextrose 5% 500 mL infusion 0-5,000 Units/hr (0-100 mL/hr), Intravenous, CONTINUOUS, Starting on Wed06/08/16 at 1230, Until Wed06/09/16 at 1112, Begin infusion at 900 units per hr (15 units/kg/hr). MAX INITIAL infusion rate is 1,750 units/hr. Target aPTT = 80 - 105 seconds Start adjustment schedule 6 hours after starting infusion. If aPTT is: - less than 60 seconds, increase rate by 250 units per hr (4 units/kg/hr) - 60 - 79 seconds, increase rate by 100 units per hr (2 units/kg/hr) - 80 - 105 seconds, No Change - 106 - 114 seconds, decrease rate by 50 units per hr (1 units/kg/hr) - 115 - 132 seconds, stop infusion for 30 minutes, then decrease rate by 100 units per hr (2 units/kg/hr) - Greater than 132 seconds, stop infusion for 60 minutes, then decrease rate by 200 units per hour (3 units/kg/hr) Repeat aPTT 6 hours after initiating heparin. Then 6 hours after each dose adjustment. When 2 consecutive aPTT within target range of 80 - 105 seconds, change aPTT to once every 24 hours with A.M. labs while on heparin. RN to order required aPTT - Per Protocol, STAT, Indication: Arterial Thrombosis Restarted 06/08/2016 10:12 PM EDT 700 Units/hr 14 mL/hr Rate/Dose Verify 06/08/2016 5:00 PM EDT 900 Units/hr 18 mL /hr New Bag 06/08/2016 12:26 PM EDT 900 Units/hr 18 mL/hr meTOPROLOL (LOPRESSOR) tablet 37.5 mg 37.5 mg, Oral, DAILY, First dose on Wed06/08/16 at 1700, Until Discontinued, Routine Given 06/10/2016 8:24 AM EDT 37.5 mg Given 06/09/2016 8:23 AM EDT 37.5 mg Given 06/08/2016 5:59 PM EDT 37.5 mg pantoprazole (PROTONIX) tablet 40 mg 40 mg, Oral, DAILY, First dose on Wed06/08/16 at 1900, Until Discontinued, DO NOT CRUSH OR OPEN If unable to take PO, may give IV Given 06/10/2016 8:24 AM EDT 40 mg Given 06/09/2016 8:23 AM EDT 40 mg Given 06/08/2016 6:02 PM EDT 40 mg simvastatin (ZOCOR) tablet 20 mg 20 mg, Oral, EVERY EVENING, First dose on Wed06/08/16 at 2100, Until Discontinued Given 06/09/2016 5:50 PM EDT 20 mg Given 06/08/2016 8:11 PM EDT 20 mg sodium chloride 0.9% infusion 1,000 mL, at 100 mL/hr, Intravenous, CONTINUOUS, Starting on Wed06/08/16 at 0630, Until Wed06/08/16 at 1412, Day of Surgery (Day of Procedure) New Bag 06/08/2016 7:33 AM EDT 1,000 mLs 100 mL/hr sodium chloride 0.9% infusion 1,000 mL, at 100 mL/hr, Intravenous, CONTINUOUS, Starting on Wed06/08/16 at 1230, Until Wed06/09/16 at 1112 New Bag 06/08/2016 9:16 PM EDT 1,000 mLs 100 mL /hr Rate/Dose Verify 06/08/2016 6:00 PM EDT 1,000 mLs 100 mL/ hr Rate/Dose Verify 06/08/2016 5:00 PM EDT 1,000 mLs 100 mL/ hr documented in this encounter Active and Recently Administered Medications Times are shown in EDT. Scheduled Medication Order 06/08/2016 06/09/2016 06/10/2016 amLODIPine (NORVASC) tablet 5 mg 5 mg, Oral, DAILY, First dose on Wed06/08/16 at 1900, Until Discontinued, Routine 1855 (Given - Provider: Gaviota Whitley RN) 0823 (Given - Provider: Yonathan Al RN) 0824 (Given - Provider: Lorraine Hernández RN) aspirin chewable tablet 81 mg 81 mg, Oral, DAILY, First dose on Wed06/08/16 at 1700, Until Discontinued, Routine 1800 (Given - Provider: Gaviota Whitley RN) 0823 (Given - Provider: Yonathan Al RN) 0825 (Given - Provider: Lorraine Hernández, GAYLE) clopidogrel (PLAVIX) tablet 75 mg 75 mg, Oral, DAILY, First dose on Wed06/08/16 at 1230, Until Discontinued, Routine 1224 (Given - Provider: Haylie Vo RN) 0822 (Given - Provider: Yonathan Al RN) 0824 (Given - Provider: Lorraine Hernández RN) dexamethasone (DECADRON) tablet 4 mg (CANCELED) 4 mg, Oral, EVERY 6 HOURS SCHEDULED, First dose on Wed06/08/16 at 1800, Until Discontinued, Routine 1759 (Given - Provider: Gaviota Whitley RN) 0005 (Given - Provider: Fabiola Blas RN)0544 (Given - Provider: Fabiola Blas RN) dexamethasone (DECADRON) tablet 4 mg 4 mg, Oral, 2 TIMES DAILY, First dose (after last modification) on Wed06/09/16 at 1700, Until Discontinued, Routine 1751 (Given - Provider: Aleisha Selby RN) 0824 (Given - Provider: Lorraine Hernández, GAYLE) meTOPROLOL (LOPRESSOR) tablet 37.5 mg 37.5 mg, Oral, DAILY, First dose on Wed06/08/16 at 1700, Until Discontinued, Routine 175 (Given - Provider: Gaviota Whitley, GAYLE) 0823 (Given - Provider: Yonathan Al, GAYLE) 0824 (Given - Provider: Lorraine Hernández, GAYLE) pantoprazole (PROTONIX) tablet 40 mg(Linked Group 1) 40 mg, Oral, DAILY, First dose on Wed06/08/16 at 1900, Until Discontinued, DO NOT CRUSH OR OPEN If unable to take PO, may give IV 180 (Given - Provider: Gaviota Whitley, GAYLE) 0823 (Given - Provider: Yonathan Al, GAYLE) 0824 (Given - Provider: Lorraine Hernández, GAYLE) simvastatin (ZOCOR) tablet 20 mg 20 mg, Oral, EVERY EVENING, First dose on Wed06/08/16 at 2100, Until Discontinued 2010 (Given - Provider: Fabiola Blas RN) 1750 (Given - Provider: Aleisha Selby RN) Continuous Medication Order 06/08/2016 06/09/2016 06/10/2016 heparin 25,000 units in dextrose 5% 500 mL infusion (CANCELED) 0-5,000 Units/hr (0-100 mL/hr), Intravenous, CONTINUOUS, Starting on Wed06/08/16 at 1230, Until Wed06/09/16 at 1112, Begin infusion at 900 units per hr (15 units/kg/hr). MAX INITIAL infusion rate is 1,750 units/hr. Target aPTT = 80 - 105 seconds Start adjustment schedule 6 hours after starting infusion. If aPTT is: - less than 60 seconds, increase rate by 250 units per hr (4 units/kg/hr) - 60 - 79 seconds, increase rate by 100 units per hr (2 units/kg/hr) - 80 - 105 seconds, No Change - 106 - 114 seconds, decrease rate by 50 units per hr (1 units/kg/hr) - 115 - 132 seconds, stop infusion for 30 minutes, then decrease rate by 100 units per hr (2 units/kg/hr) - Greater than 132 seconds, stop infusion for 60 minutes, then decrease rate by 200 units per hour (3 units/kg/hr) Repeat aPTT 6 hours after initiating heparin. Then 6 hours after each dose adjustment. When 2 consecutive aPTT within target range of 80 - 105 seconds, change aPTT to once every 24 hours with A.M. labs while on heparin. RN to order required aPTT - Per Protocol, STAT, Indication: Arterial Thrombosis 1226 (New Bag - Provider: Haylie Vo RN)1700 (Rate/Dose Verify - Provider: Gaviota Whitley, GAYLE)1936 (Paused - Provider: Fabiola Blas RN)2035 (Paused - Provider: Fabiola Blas RN - Comment: STAT PTT drawn, will wait to restart until results per MD)2107 (Paused - Provider: Fabiola Blas RN - Comment: PTT 133; will restart at 2200 per MD Farfan according to order.)221 (Restarted - Provider: Fabiola Blas RN) 0400 (Stopped - Provider: Fabiola Blas RN - Comment: stopped per MD Farfan) sodium chloride 0.9% infusion (CANCELED) 1,000 mL, at 100 mL/hr, Intravenous, CONTINUOUS, Starting on Wed06/08/16 at 0630, Until Wed06/08/16 at 1412, Day of Surgery (Day of Procedure) 0733 (New Bag - Provider: Svetlana Mac RN) sodium chloride 0.9% infusion (CANCELED) 1,000 mL, at 100 mL/hr, Intravenous, CONTINUOUS, Starting on Wed06/08/16 at 1230, Until Wed06/09/16 at 1112 1239 (New Bag - Provider: Haylie Vo RN)1700 (Rate/Dose Verify - Provider: Gaviota Whitley, GAYLE)1800 (Rate/Dose Verify - Provider: Gaviota Whitley, GAYLE)2116 (New Bag - Provider: Sierra Fonseca RN) PRN Medication Order 06/08/2016 06/09/2016 06/10/2016 acetaminophen (TYLENOL) tablet 650 mg 650 mg, Oral, EVERY 4 HOURS PRN, Starting on Wed06/08/16 at 1204, Until Wed06/10/16 at 1401, Pain, mild pain, fever, Max. Dose = 4 grams acetaminophen (all sources) in 24 hours, Routine hydrALAZINE (APRESOLINE) injection 10 mg 10 mg, Intravenous, EVERY 4 HOURS PRN, Starting on Wed06/08/16 at 1638, Until Wed06/10/16 at 1401, High Blood Pressure, for SBP greater than 160 mmHg. labetalol (NORMODYNE,TRANDATE) injection 20-40 mg 20-40 mg, Intravenous, EVERY 10 MIN PRN, 8 doses, Starting on Wed06/08/16 at 1638, Until Wed06/10/16 at 1401, High Blood Pressure, For systolic blood pressure (SBP) greater than 160 mmHg administer 20 mg, repeat SBP after 10 minutes. Repeat administration of 40 mg every 10 minutes for SBP greater than 160 mmHg up to a total dose of 300 mg. Hold for HR less than 50 beats per minute., Routine ondansetron (ZOFRAN) injection 4 mg 4 mg, Intravenous, EVERY 8 HOURS PRN, Starting on Wed06/08/16 at 1638, Until Wed06/10/16 at 1401, Nausea oxyCODONE-acetaminophen (PERCOCET) 5-325 mg per tablet 1 tablet 1 tablet, Oral, EVERY 4 HOURS PRN, Pain, Starting on Wed06/08/16 at 1204, Until Wed06/10/16 at 1401, Administer 1 tablet. May repeat ONCE in 30 - 60 minutes if pain unrelieved. Max. Dose = 4 grams acetaminophen (all sources) in 24 hours Linked Groups Order Group 1: pantoprazole (PROTONIX) tablet 40 mgJump to med 40 mg, Oral, DAILY, First dose on Wed06/08/16 at 1900, Until Discontinued, DO NOT CRUSH OR OPEN If unable to take PO, may give IV Or pantoprazole (PROTONIX) injection 40 mg (CANCELED) 40 mg, Intravenous, DAILY, First dose on Wed06/08/16 at 1900, Until Discontinued, Reconstitute with 10 mL of normal saline to a concentration of 4 mg/mL and infuse slowly over 2 minutes. , Routine documented in this encounter Care Teams Sdv Pilot/Navigator/Dds Operator Relationship Specialty Start Date End Date Neda Keller MD [address] [place] [id number] PCP - General 01/28/10 03/05/22 documented as of this encounter
--- OUTSIDE RECORDS SUMMARY | 2024-02-07 16:37 | XMS_ITS | Encounter Summary ---
Author Organization [facility] [place] [address] Care Team Providers Care Adolescent Medicine Specialist Name Role Phone Neda Keller MD Primary Care Provider [phone] Reason for Visit * Reason Onset Date Comments Post Procedure Call 06/15/2016 Encounter Details Date Type Department Care Team (Late st Contact Info) Description 06/15/2016 [facility] [place] [address] Sarah Santiago RN Post Procedure Call Social History Tobacco Use Types Packs/Day Years [...] Telephone Encounter - Sarah Santiago RN - 06/15/2016 11:23 AM EDT F/U call s/p right ICA aneurysm pipeline stent on 06/08/[address] Morfin Date: 06/15/16 per daughter and Lianna Neuro: alert and oriented: yes Dizzy or lightheaded: a little dizzy Numbness/tingling/weakness: denies Ambulation: steady Vision: still seeing double Speech: good Hearing: good Incision: groin site looks good Pain: c/o headache, called in and got started on Dexamethasone tapering dose, /10; taking Tylenol 2 every 4-6 hours; sitting with head elevated PO: eating and drinking well B&B: working well Sleep: good, wakes to go to the [place] Other: BP slightly elevated-132/78 Has a call in to Dr. Morfin about taking Clonazipine which she has already documented in this encounter Plan of Treatment Not on file documented as of this encounter Visit Diagnoses Not on filedocumented in this encounter Care Teams Adolescent Medicine Specialist Relationship Specialty Start Date End Date Neda Keller MD [address] [place] [phone] PCP - General 01/28/10 03/05/22 documented as of this encounter
--- OUTSIDE RECORDS SUMMARY | 2024-02-07 16:37 | XMS_ITS | Encounter Summary ---
Author Organization [facility] [place] [address] Care Team Providers Care Structural Analyst Name Role Phone Neda Keller MD Primary Care Provider Encounter Details Date Type Department Care Team (Late st Contact Info) Description 12/18/2010 2:55 PM EDT - 12/18/2010 11:59 PM EDT Hospital Encounter [place] [id number] CARDIO, ECHO SIXTY MIN APPT None Neda Keller MD [address] [place] [address] Ascending aorta dilatation Discharge Disposition: Home Social History Tobacco Use Types Packs/Day Years Used Date Smoking Tobacco: Never Assessed Sex and Gender Information Value Date Recorded Sex Assigned at Not on file Gender Identity Not on file Sexual Orientation Not on file documented as of this encounter Medications at Time of Discharge Medication Sig Dispensed Refills Start Date End Date gabapentin (NEURONTIN) 100 mg capsule 100MG = 1 Capsule(s), PO, Three times daily 01/11/2006 08/20/2014 documented as of this encounter Plan of Treatment Not on file documented as of this encounter Procedures Procedure Name Priority Date/Time Associated Diagnosis Comments ECHOCARDIOGRAM TRANSTHORACIC Routine 12/18/2010 4:06 PM EDT Ascending aorta dilatation documented in this encounter Results * Echo Transthoracic (Complete) (12/18/2010 4:06 PM EDT) EF 70 HEARTLAB SYSTEM Anatomical Region Laterality Modality Other 12/18/2010 Narrative 12/18/2010 4:31 PM EDT Procedure: ? Transthoracic Echocardiogram ? Patient: ? LUCILA Bee ?(Age): 1935(75) Med Rec#: ?[id number] ?Sex: ?F ? [place] Loc[place] [place]Ht / Wt: ??152(cm)/58(kg) Pt. Loc: ? Echo Lab ?BSA: ?1.56 Study Date: ?12/18/2010 ?Pt. Type: Outpatient Tape: ? Referring: Neda Keller Battery Charger: Lisa Funk Diagnosis:CPT Code(s): ??Echo Full (39272), ??Spectral Doppler (91528), Color Doppler (86208), Indication(s): ??Aortic aneurysm, R/O Rhythm: SUMMARY: 1. This patient has a family history of ascending aortic aneurysm. 2. The aortic root is normal in size. ??The ascending aorta is mildly dilated (3.7 cm). ??The aortic arch is normal in size. 3. The aortic valve is trileaflet with no regurgitation or stenosis. 4. The mitral valve has some focal calcification/thickening on the leaflets with normal function. 5. Other details as noted below. ?? FINDINGS: Left Ventricle ?The left ventricular chamber size is normal. ?Mild concentric left ventricular hypertrophy is observed. ?There is no evidence of LVOT obstruction. ?There is normal global left ventricular systolic function. ??Ejection fraction is estimated to be 70%. ?There are no left ventricular segmental wall motion abnormalities. ?Doppler assessment is consistent with elevated left sided filling pressure. ?A false chord is observed in the left ventricle. Left Atrium ?The left atrium is mildly dilated. Right Ventricle ?Right ventricular chamber size, wall thickness, and systolic function are within normal limits. ?Pulmonary artery hypertension could not be assessed due to inadequate tricuspid regurgitation jet. ?The estimated pulmonary artery systolic pressure is 26 mmHg. ?The estimated right atrial pressure is 3 mmHg. Right Atrium ?The right atrium is normal in size. Aortic Valve ?The aortic valve is tricuspid. ?There is no evidence of aortic valve stenosis. ?There is a trace of aortic regurgitation present. Mitral Valve ?There is thickening of the anterior mitral valve leaflet. ?There is posterior mitral annular calcification. ?There is trace mitral regurgitation present. Tricuspid Valve ?The tricuspid valve appears normal in structure and function. ?There is trace tricuspid regurgitation present. Pulmonic Valve ?The pulmonic valve appears normal in structure and function. ?There is trace pulmonic regurgitation present. Pericardium ?The pericardium appears normal and there is no evidence of a pericardial effusion. Aorta ?The aortic root is normal in size. ?The aortic root dimension is 3.6 cm at the level of the sinuses. ?There is mild dilatation of the ascending aorta. ?The ascending aorta dimension is 3.7 cm. ?The aortic arch is normal in size. ?The aortic arch dimension is 3 cm. Pulmonary Artery ?The main pulmonary artery appears normal. Venous ?The inferior vena cava appears normal in size. ?There is a greater than 50% respiratory change in the inferior vena cava dimension. Misc ?Two-dimensional echo, spectral Doppler and color Doppler performed. Wall Motion: Segment Name ?Rest ? Base-Anteroseptal ?? Normal ? Base-Anterior ? Normal ? Base-Anterolateral ??Normal ? Base-Posterolateral Normal ? Base-Inferior ? Normal ? Base-Inferoseptal ?? Normal ? Mid-Anteroseptal ?Normal ? Mid-Anterior ?Normal ? Mid-Anterolateral ?? Normal ? Mid-Posterolateral ??Normal ? Mid-Inferior ?Normal ? Mid-Inferoseptal ?Normal ? [place]-Septal ? Normal ? [place]-Anterior ? Normal ? [place]-Lateral ?Normal ? [place]-Inferior ? Normal ? [place]-Tip ?Normal ? Chambers ?Value ?Units (Range) ? LV EF Est ? 70 ? % (55 to 80) ? IVSd 2D ? 1.2 ?cm ? LVIDd 2D ?3.3 ?cm ? PWd 2D ?1.3 ?cm ? LVIDs 2D ?1.8 ?cm ? LVFS 2D ? 45 ? % ? LA area ? 21 ? cm2 (<21) ? RA area ? 16 ? cm2 (<18) ? Ao root ? 3.6 ?cm (2.1 to 3.6) ? Asc Ao ?3.7 ?cm (2 to 3.5) ? Pr Ao Arch ?3 ?cm (1 to 3.4) ? Mitral Valve ?Value ?Units (Range) ? E peak ?0.95 ? m/sec ? E/A ratio ? 0.7 ?ratio ? MVDT ?249 ?msec ? E1 ?0.04 ? m/sec ? E/E1 ?23.8 ? ratio ? Tricuspid/Pulmonic Valves ?Value ?Units (Range) ? TR peak fredy ? 2.4 ?m/sec ? RAP ? 3 ?mmHg ? RVSP/PASP ? 26 ? mmHg ? This report has been electronically signed by: Ignacio Rubio MD ? 12/18/2010 16:30:40 Images reviewed and interpretation verified [facility] Cardiac Ultrasound Laboratory Procedure Note Ignacio Rubio MD - 12/18/2010 Procedure: Transthoracic Echocardiogram Patient: LUCILA Bee DOB(Age): 1935(75) Med Rec#: [id number] Sex: F [place] Loc: [facility] [place] Ht / Wt: 152(cm)/58(kg) Pt. Loc: Echo Lab BSA: 1.56 Study Date: 12/18/2010 Pt. Type: Outpatient Tape: Referring: Neda Keller Battery Charger: Lisa Funk Diagnosis:CPT Code(s): Echo Full (48339), Spectral Doppler (12230), Color Doppler (11585), Indication(s): Aortic aneurysm, R/O Rhythm: SUMMARY: 1. This patient has a family history of ascending aortic aneurysm. 2. The aortic root is normal in size. The ascending aorta is mildly dilated (3.7 cm). The aortic arch is normal in size. 3. The aortic valve is trileaflet with no regurgitation or stenosis. 4. The mitral valve has some focal calcification/thickening on the leaflets with normal function. 5. Other details as noted below. FINDINGS: Left Ventricle The left ventricular chamber size is normal. Mild concentric left ventricular hypertrophy is observed. There is no evidence of LVOT obstruction. There is normal global left ventricular systolic function. Ejection fraction is estimated to be 70%. There are no left ventricular segmental wall motion abnormalities. Doppler assessment is consistent with elevated left sided filling pressure. A false chord is observed in the left ventricle. Left Atrium The left atrium is mildly dilated. Right Ventricle Right ventricular chamber size, wall thickness, and systolic function are within normal limits. Pulmonary artery hypertension could not be assessed due to inadequate tricuspid regurgitation jet. The estimated pulmonary artery systolic pressure is 26 mmHg. The estimated right atrial pressure is 3 mmHg. Right Atrium The right atrium is normal in size. Aortic Valve The aortic valve is tricuspid. There is no evidence of aortic valve stenosis. There is a trace of aortic regurgitation present. Mitral Valve There is thickening of the anterior mitral valve leaflet. There is posterior mitral annular calcification. There is trace mitral regurgitation present. Tricuspid Valve The tricuspid valve appears normal in structure and function. There is trace tricuspid regurgitation present. Pulmonic Valve The pulmonic valve appears normal in structure and function. There is trace pulmonic regurgitation present. Pericardium The pericardium appears normal and there is no evidence of a pericardial effusion. Aorta The aortic root is normal in size. The aortic root dimension is 3.6 cm at the level of the sinuses. There is mild dilatation of the ascending aorta. The ascending aorta dimension is 3.7 cm. The aortic arch is normal in size. The aortic arch dimension is 3 cm. Pulmonary Artery The main pulmonary artery appears normal. Venous The inferior vena cava appears normal in size. There is a greater than 50% respiratory change in the inferior vena cava dimension. Misc Two-dimensional echo, spectral Doppler and color Doppler performed. Wall Motion: Segment Name Rest Base-Anteroseptal Normal Base-Anterior Normal Base-Anterolateral Normal Base-Posterolateral Normal Base-Inferior Normal Base-Inferoseptal Normal Mid-Anteroseptal Normal Mid-Anterior Normal Mid-Anterolateral Normal Mid-Posterolateral Normal Mid-Inferior Normal Mid-Inferoseptal Normal Vinton-Septal Normal Vinton-Anterior Normal V[place]-Lateral Normal [place]-Inferior Normal V[place]-Tip Normal Chambers Value Units (Range) LV EF Est 70 % (55 to 80) IVSd 2D 1.2 cm LVIDd 2D 3.3 cm PWd 2D 1.3 cm LVIDs 2D 1.8 cm LVFS 2D 45 % LA area 21 cm2 (<21) RA area 16 cm2 (<18) Ao root 3.6 cm (2.1 to 3.6) Asc Ao 3.7 cm (2 to 3.5) Pr Ao Arch 3 cm (1 to 3.4) Mitral Valve Value Units (Range) E peak 0.95 m/sec E/A ratio 0.7 ratio MVDT 249 msec E1 0.04 m/sec E/E1 23.8 ratio Tricuspid/Pulmonic Valves Value Units (Range) TR peak fredy 2.4 m/sec RAP 3 mmHg RVSP/PASP 26 mmHg This report has been electronically signed by: Ignacio Rubio MD 12/18/2010 16:30:40 Images reviewed and interpretation verified [facility] Cardiac Ultrasound Laboratory Neda Keller MD ECHO ORDERABLES documented in this encounter Visit Diagnoses Diagnosis Ascending aorta dilatation Thoracic aortic ectasia documented in this encounter Care Teams Structural Analyst Relationship Specialty Start Date End Date Neda Keller MD [address] [place] [phone] PCP - General 01/28/10 03/05/22 documented as of this encounter
--- OUTSIDE RECORDS SUMMARY | 2024-02-07 16:37 | XMS_ITS | Encounter Summary ---
Author Organization [facility] Address [facility] [place] [address] Care Team Providers Care Woodworking Machine Offbearer Name Role Phone Neda Keller MD Primary Care Provider [phone] Reason for Referral * Consultation (Routine) - Closed Specialty Diagnoses / Procedures Referred By Amarilis tidwell Referred To Contact Neurology Diagnoses Imbalance Dizziness Kash Morfin MD [facility] [place] [address] [facility] [address] [place] [address] Referral ID Status Reason Start Date Expiration Date V isits Requested Visits Authorized [id number] Closed Consult, Test & Treat 07/08/2016 07/08/2017 1 1 Reason for Visit * Reason Comments Follow-up Encounter Details Date Type Department Care Team (Late st Contact Info) Description 07/08/2016 1:00 PM EDT [place] [phone] Kash Morfin MD [facility] [place] [address] Imbalance; Dizziness Social History Tobacco Use Types Packs/Day Years [...] Sign Reading Time Taken Comments Blood Pressure 143/71 07/08/2016 1:37 PM EDT Pulse 61 07/08/2016 1:37 PM EDT Temperature - - Respiratory Rate - - Oxygen Saturation - - Inhaled Oxygen Concentration - - Weight 61.1 kg (134 lb 12.8 oz) 07/08/2016 1:37 PM EDT Height 147.3 cm (4' 10) 07/08/2016 1:37 PM EDT Body Mass Index 28.17 07/08/2016 1:37 PM EDT documented in this encounter Progress Notes * Kash Morfin MD - 07/08/2016 1:00 PM EDT Inter[facility] Office Note Note Author: Kash Morfin MD Chief Complaint: Cerebral aneurysm History of present illness: Lianna Yuan is a 80 y.o. 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 She has worsened difficulty opening her right eye. The double vision and visual acuity are unchanged. No headache. The recent steroid trial has not improvedthis. Less expected are that since the procedure she has been having some imbalance and dizziness. There is no vertiginous component. The symptoms are only relieved by lying down. Her walking is slowed andmore difficult. She is unable to enjoy her usual activities including gardening. THe problem is intermittent and she had one day free of symptoms but generally these have been more present than not. Current Outpatient Prescriptions on File Prior to Visit Medication Sig Dispense Refill ??? dexamethasone (DECADRON) 2 mg Tablet Take [...] to visit. No Known Allergies Physical exam: Vitals: 07/08/16 1337 BP: 143/71 Pulse: 61 Alert, pleasant in no acute distress. Alert, oriented x 3 Speech fluent Right pupil small and with present but diminished reactivity. VFFTC Limited right eye abduction. Also limited adduction. Left extraocular function normal. Normal facial motor Tongue midline Full strength in 4 extemities Nl finger tapping Nl finger-nose Gait mildly unsteady and unable to do heel-toe walking Assessment: Lianna Yuan Is recovering from Pipeline embolization of her large right cavernous ICA aneurysm. 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 Fortunately sheis headache free and her Is otherwise unchanged. The cause of her unsteadiness/dizziness is unclearto me but fairly distressing to her since she is unable to participate in her usual activities. I will have her see a Neurologist here to see what they make of this new problem. The very short steroid course hasn't changed the symptoms so we will start tapering them now (go to2 mg TID for next three days, then 1 tab TID for 3 days, then stop). Plan: Referral to Neurology Rapid taper steroids Continue ASA and Plavix F/U angiogram in 5 more months Of this >25 (Established Level IV) minute visit, 20 minutes was spent in counseling and coordination of care. documented in this encounter Plan of Treatment Scheduled Referrals Name Type Priority Associated Diagnoses Orde r Schedule Referral to Neurology Outpatient Referral Routine Imbalance Dizziness Ordered: 07/08/2016 documented as of this encounter Visit Diagnoses Diagnosis Imbalance Abnormality of gait Dizziness Dizziness and giddiness documented in this encounter Care Teams Woodworking Machine Offbearer Relationship Specialty Start Date End Date Neda Keller MD [address] [place] [address] PCP - General 01/28/10 03/05/22 documented as of this encounter
--- OUTSIDE RECORDS SUMMARY | 2024-02-07 16:37 | XMS_ITS | Encounter Summary ---
Author Organization [facility] Address [facility] [place] [address] Care Team Providers Care Venue Manager Name Role Phone Neda Keller MD Primary Care Provider Encounter Details Date Type Department Care Team (Latest Contact Info) Description 04/06/2016 - 04/06/2016 11:59 PM EST Hospital Encounter Radiology Library [place] [phone] Meño Crouch MD [facility] [place] [address] Pain Discharge Disposition: Home Social History Tobacco Use Types Packs/Day Years Used Date Smoking Tobacco: Never Sex and Gender Information Value Date Recorded Sex Assigned at Not on file Gender Identity Not on file Sexual Orientation Not on file documented as of this encounter Medications at Time of Discharge Medication Sig Dispensed Refills Start Date End Date meTOPROLOL tartrate (LOPRESSOR) 25 mg Tablet Take 50 mg by mouth daily. 12/17/2020 amLODIPine (NORVASC) 5 mg Tablet Take 5 mg by mouth daily. 12/07/2018 documented as of this encounter Plan of Treatment Not on file documented as of this encounter Procedures Procedure Name Priority Date/Time Associated Diagnosis Comments FILM LIBRARY STORAGE ONLY MR HEAD Routine 04/06/2016 12:00 AM EST Pain documented in this encounter Results * Film Library- Storage Only MR Head (04/06/2016 12:00 AM EST) Narrative [facility] - 04/10/2016 7:07 AM EST This exam is for storage only and is auto-finalizing. Meño Crouch MD IMG FILM LIBRARY ORD ERABLES [place], [place] documented in this encounter Visit Diagnoses Diagnosis Pain Generalized pain documented in this encounter Care Teams Venue Manager Relationship Specialty Start Date End Date Neda Keller MD [address] [place] [address] PCP - General 01/28/10 03/05/22 documented as of this encounter
--- OUTSIDE RECORDS SUMMARY | 2024-02-07 16:37 | XMS_ITS | Encounter Summary ---
Author Organization [facility] Address [facility] [place] [address] Care Team Providers Care Complaint Evaluation Officer Name Role Phone Neda Keller MD Primary Care Provider [phone] Encounter Details Date Type Department Care Team (Late st Contact Info) Description 06/30/2016 [place] [address] Kash Morfin MD [facility] [place] [address] Social History Tobacco Use Types Packs/Day Years [...] Progress Notes * Kash Morfin MD - 06/30/2016 10:48 AM EDT Pt reported ptosis. No headache or other vision worsening. Double vision without change Quite possibly related to aneurysm thrombosis. Will restart dexamethasone to see if this helps. She tolerated this well before. Office visit in 2 weeks. documented in this encounter Plan of Treatment Not on file documented as of this encounter Visit Diagnoses Not on filedocumented in this encounter Care Teams Complaint Evaluation Officer Relationship Specialty Start Date End Date Neda Keller MD [address] [place] [address] PCP - General 01/28/10 03/05/22 documented as of this encounter
--- OUTSIDE RECORDS SUMMARY | 2024-02-07 16:37 | XMS_ITS | Encounter Summary ---
Author Organization [facility] Address [facility] [place] [address] Care Team Providers Care Surgeon/President Name Role Phone Neda Keller MD Primary Care Provider [phone] Reason for Visit * Diagnostic Test (Routine) - Closed Specialty Diagnoses / Procedures Referred By Amarilis tidwell Referred To Contact Radiology Diagnoses Cerebral aneurysm Procedures CT [place] w Contrast (Generic) CT Carotids & [place] w Contrast Meño Crouch MD [facility] [address] [facility] [place] [address] Referral ID Status Reason Start Date Expiration Date V isits Requested Visits Authorized [id number] Closed Specialty Service Requested 04/29/2016 04/29/2017 1 1 Encounter Details Date Type Department Care Team (Latest Contact Info) Description 05/13/2016 10:42 AM EST - 05/13/2016 11:59 PM EST Hospital [place] [address] Meño Crouch MD [facility] [address] Cerebral aneurysm Discharge Disposition: Home Social History Tobacco Use Types Packs/Day Years Used Date Smoking Tobacco: Never Smokeless Tobacco: Never Alcohol Use Standard Drinks/Week Comments Yes 0 (1 standard drink = 0.6 oz pur e alcohol) 3 drinks weekly Sex and Gender Information Value Date Recorded [...] Procedure Name Priority Date/Time Associated Diagnosis Comments CT [place] W CONTRAST Routine 05/13/2016 11:43 AM EST Cerebral aneurysm documented in this encounter Results * CT [place] w Contrast (Generic) (05/13/2016 11:43 AM EST) Anatomical Region Laterality Modality Neck, Head Computed Tomogra phy Impressions 05/13/2016 1:52 PM EST Giant right cavernous carotid artery aneurysm as described above. Narrative 05/13/2016 1:52 PM EST EXAMINATION: CT [place] W CONTRAST (GENERIC) CLINICAL HISTORY: likely aneurysm on outside MRI. ??Please perform CTAngio for diagnosis TECHNIQUE: CTA [place] with contrast. 65 cc of Omnipaque 350 administered. COMPARISON: Brain MRI 04/06/2016. FINDINGS: There is a giant, broad necked right cavernous carotid artery aneurysm measuring approximately 2.7 cm in maximal size. The irwin of the aneurysm sac are partially calcified. A thrombosed component is not identified. There is remodeling of the adjacent sphenoid bone with marked thinning involving the posterior/ lateral wall of the right sphenoid sinus. A small lateral component to the aneurysm measuring approximately 5 mm in size projects into the sella. No other aneurysms are identified. No significant intracranial stenoses. Procedure Note August Benavidez MD - 05/13/2016 EXAMINATION: CT [place] W CONTRAST (GENERIC) CLINICAL HISTORY: likely aneurysm on outside MRI. Please perform CTAngiofor diagnosis TECHNIQUE: CTA [place] with contrast. 65 cc of Omnipaque 350 administered. COMPARISON: Brain MRI 04/06/2016. FINDINGS: There is a giant, broad necked right cavernous carotid arteryaneurysm measuring approximately 2.7 cm in maximal size. The irwin of the aneurysmsac are partially calcified. A thrombosed component is not identified. Thereis remodeling of the adjacent sphenoid bone with marked thinning involvingthe posterior/ lateral wall of the right sphenoid sinus. A small lateralcomponent to the aneurysm measuring approximately 5 mm in size projects into thesella. No other aneurysms are identified. No significant intracranial stenoses. IMPRESSION Giant right cavernous carotid artery aneurysm as described above. Meño Crouch MD IMG CT ORDERABLES documented in this encounter Visit Diagnoses Diagnosis Cerebral aneurysm Cerebral aneurysm, nonruptured documented in this encounter Administered Medications Inactive Administered Medications - up to 3 most recent administrations Medication Order MAR Action Action Date Dose Rate Site iohexol (OMNIPAQUE) 350 mg/mL solution 22,750 mg 22,750 mg (65 mL), Intravenous, ONCE PRN, 1 dose, Starting on Wed05/13/16 at 1132, Until Wed05/13/16 at 1136, Per Protocol, Warning Vesicant/Irritant Medication , Routine Given 05/13/2016 11:36 AM EST 22,750 mg documented in this encounter Care Teams Surgeon/President Relationship Specialty Start Date End Date Neda Keller MD [address] [place] [address] PCP - General 01/28/10 03/05/22 documented as of this encounter
--- OUTSIDE RECORDS SUMMARY | 2024-02-07 16:37 | XMS_ITS | Encounter Summary ---
Author Organization [facility] Address [facility] [place] [place] [address] Care Team Providers Care People Manager Name Role Phone Neda Keller MD Primary Care Provider Reason for Visit * Reason Comments Rash Encounter Details Date Type Department Care Team (Late st Contact Info) Description 08/20/2014 1:30 PM EDT Office Visit Dermatology at [facility] [address] [place] [address] Jeanna Bustamante PA [facility] [address] [address] Tabatha Rowland MD [facility] [address] [place] [address] KP (keratosis pilaris); Xerosis of skin; Varicose vein of leg Discharge Disposition: Home Social History Tobacco Use Types Packs/Day Years Used Date Smoking Tobacco: Never Sex and Gender Information Value Date Recorded Sex Assigned at Not on file Gender Identity Not on file Sexual Orientation Not on file documented as of this encounter Patient Instructions * Patient Instructions* Jerrica Chen LPN - 08/20/2014 1:45 PM EDT Sensitive Skin Care You have been diagnosed with a condition that requires a sensitive skin care regimen. It is very important to follow this plan as outlined below. ?? Take short, cool showers. Use soap only where absolutely needed. Pat skin dry. ?? Immediately after bathing, apply moisturizing cream to body. ?? Use only the following personal care products. They are are recommended by our clinic because they have been extensively tested and are least likely to cause distress to your skin. ?? Soap: Dove Unscented Bar Soap or Vanicream bar soap ?? Facial cleanser: CeraVe Foaming Facial Cleanser or CeraVe Hydrating Cleanser ?? Moisturizer: CeraVe cream, CeraVe lotion, CeraVe lite lotion, Vanicream cream ?? Laundry Detergent: ALL Free&Clear. Do not use fabric softener or dryer sheets. Compression Stockings-Compressionstockings.MyDatingTree documented in this encounter Progress Notes * Tabatha Rowland MD - 08/22/2014 5:29 PM EDT Itch and crawling sensation suggestive of a neurogenic etiology to her itch. She does have background xerosis so will treat this component and re-evaluate. Patient seen in conjunction with Jeanna Knight PA-C Signed by: Tabatha Rowland MD Section of Dermatology [facility] * Jeanna Knight PA - 08/20/2014 1:37 PM EDT DERMATOLOGY - NEW PATIENT CONSULT NOTE Date of service: 08/20/2014 Lianna Yuan : 1935 Dermatology Physician Dental Cream Maker Note: Jeanna Knight PA-C Chief Complaint Patient presents with ??? Rash Ms. Lianna Yuan is a 78 y.o. female. This is a new patient to me and to the clinic. Seen in consultation at the request of Neda Keller specifically for the evaluation and management of the above problem. HPI: Ms. Yuan presents for itching on the left posterior thigh, experiences mostly when relaxing/sitting. Patient states that it feels like works crawling under the skin. Skin History: no known h/o melanoma no known h/o non-melanoma skin cancer no known h/o eczema, atopy no known h/o psoriasis, or other skin disease Medical History: There is no problem list on file for this patient. Procedure Screening Questions: Defibrillator/Pacemaker: no Artificial Joints: no Heart Valves: no Blood Thinners: no Prophylactic Antibiotics: no Medications: Current Outpatient Prescriptions Medication Sig Dispense Refill ??? meTOPROLOL tartrate (LOPRESSOR) 25 mg Tablet Take 25 mg by mouth daily. ??? amLODIPine (NORVASC) 5 mg Tablet Take 5 mg by mouth daily. ??? simvastatin (ZOCOR) 20 mg Tablet Take 20 mg by mouth nightly. No current facility-administered medications for this visit. Allergies: No Known Allergies Family History: no known h/o melanoma no known h/o non-melanoma skin cancer no known h/o eczema, atopy no known h/o psoriasis, or other skin disease Social History: Occupation: retired Recreation: gardening Review of Systems: General: Feels well Skin: As per HPI; no other skin concerns Examination: Constitutional: Patient was pleasant, alert, well-appearing and in no noticeable distress. Skin: An abbreviated skin examination was performed. This includes the posterior thighs Specific skin findings: 1. Xerotic skin throughout; increased presence of varicosities on L>R posterior thigh; bilateralposterior arms and thighs: spiny follicular based papules with slight erythema, on backs of thighs,and backs of arms. Hyperlinear palms. Diagnosis/Assessment/Treatment Plan: 1. Xerotic skin, increased varicosities and Keratosis pilaris (KP) in area of pruritis. No findingson exam today suggestive of rash or primary skin lesion. - Discussed symptoms more likely related to nerve pain. May want to pursue PT if no resolution w/ the following - Encouraged and reviewed sensitive skin care: short luke-warm showers, minimal soap use, heavy daily moisturization with bland lotion, reviewed list of recommended skin products. - Encouraged to wear compression stockings daily. LOS: [id number] RTC in 6-8wks for f/u or PRN if symptoms worsen or persist. Instructed to call with questions or concerns. Note initiated by Jerrica Chen LPN I am documenting this encounter acting as the scribe for and in the presence of Jeanna Knight PA-C I performed the above scribed service and agree with the accuracy of the documentation in this encounter. Reviewed and signed by Jeanna Knight PA-C Dermatology [facility] Patient seen in conjunction with/supervision of Attending Physician: Tabatha Rowland MD Section of Dermatology [facility] A copy of this report has been sent to the referring provider either by electronic messaging or by fax. We appreciate you allowing us to join in the care of your patient. To help expedite future referrals, we have included some tips below for your reference. We have created guidelines for our scheduling team for prioritizing referrals. By adhering to theseguidelines and referral process requests, we feel we can do a better job meeting your needs. Pleasenote that the following lists are simply guidelines and are subject to change based on your clinical exam. MOST Urgent (need to be seen within 48-72 hours) *Call our Consult [place] to schedule at [phone] ??? New or changing pigmented lesion ??? Eruptive rash (new/concerning) ??? Ruptured cyst ??? Bullous dermatoses (blisters/ blistering rash) ??? Ulcerated hemangioma SEMI Urgent (need to be seen within 2 weeks) *Enter referral in eDH as ???Urgent?? or ???PRITI? Eczema and psoriasis flares /dermatitis ??? Skin lesions concerning for non-melanoma skin cancer ??? Hemangioma LEAST Urgent (next available appointment) *Enter referral in eDH as ???Routine? Chronic rash ??? Cosmetic concerns (including skin tags) ??? Onychomycosis and other nail complaints ??? Cysts ??? Acne ??? Alopecia ??? Actinic keratosis ??? Warts/molluscum ??? hernandez We hope you will work with us to educate mutual patients on these expected timelines. We feel that this process will help us see the right patients at the right time. documented in this encounter Plan of Treatment Not on file documented as of this encounter Visit Diagnoses Diagnosis KP (keratosis pilaris) Other specified congenital anomaly of skin Xerosis of skin Other specified disease of sebaceous glands Varicose vein of leg Asymptomatic varicose veins documented in this encounter Care Teams People Manager Relationship Specialty Start Date End Date Neda Keller MD [address] [place] [address] PCP - General 01/28/10 03/05/22 documented as of this encounter
--- OUTSIDE RECORDS SUMMARY | 2024-02-07 16:37 | XMS_ITS | Encounter Summary ---
Author Organization [facility] Address [facility] [place] [address] Care Team Providers Care Dockmaster Name Role Phone Neda Keller MD Primary Care Provider [phone] Encounter Details Date Type Department Care Team (Late st Contact Info) Description 06/30/2016 Telephone Neurosurgery at [facility] [place] [address] Sarah Santiago RN Social History [...] Telephone Encounter - Sarah Santiago RN - 06/30/2016 11:30 AM EDT Lianna called with c/o difficulty opening her right eye after being closed until she blinks. She states it started feeling weak over the weekend. 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 Morfin. I emailed Dr. Morfin who recommended Dexamethasone 2 mg three times daily and f/u with him in 1-2 weeks. [facility] in [place], [place]. Lianna verbalized agreement and understanding this plan. documented in this encounter Plan of Treatment Not on file documented as of this encounter Visit Diagnoses Not on filedocumented in this encounter Care Teams Dockmaster Relationship Specialty Start Date End Date Neda Keller MD [address] [place] [address] PCP - General 01/28/10 03/05/22 documented as of this encounter
--- OUTSIDE RECORDS SUMMARY | 2024-02-07 16:37 | XMS_ITS | Encounter Summary ---
Author Organization [facility] [place] [address] Care Team Providers Care Chicken Handler Name Role Phone Neda Keller MD Primary Care Provider Reason for Referral * Diagnostic Test (Routine) - Closed Specialty Diagnoses / Procedures Referred By Amarilis tidwell Referred To Contact Radiology Diagnoses Cerebral aneurysm Procedures IR All Neuro Angiograms [facility] Neurosurgery [address] [place] [address] [facility] [place] [address] Referral ID Status Reason Start Date Expiration Date V isits Requested Visits Authorized [id number] Closed Specialty Service Requested 12/10/2016 12/10/2017 1 1 Encounter Details Date Type Department Care Team (Late st Contact Info) Description 12/10/2016 [place] [address] Sarah Santiago RN Carotid artery aneurysm; Cerebral aneurysm Social History Tobacco Use Types [...] documented as of this encounter Results * IR All Neuro [...] for the entire procedure. PROCEDURE: - R FOOD AND BEVERAGE COORDINATOR access - Cerebral angiogram - R FOOD AND BEVERAGE COORDINATOR Mynx closure device ANESTHESIA: Monitored anesthesia care provided by the Anesthesia service. EBL: <50 ml CONTRAST: 18 mL Visipaque-320. RADIATION EXPOSURE: A-plane 302.3 mGy, B-plane ??131.9 mGy. MATERIALS: Micropuncture set, 5Fr [place] sheath, 5Fr ??Juwan catheter. TECHNIQUE: The procedure [...] no immediate complications. Catheter was removed. R FOOD AND BEVERAGE COORDINATOR roadmap was obtained. Mynx closure device was [...] cerebral angiogram. OPERATORS: Resident/Fellow: Quinn Pierce Attending: Kash Munoz, was present for the entireprocedure. PROCEDURE: - R FOOD AND BEVERAGE COORDINATOR access - Cerebral angiogram - R FOOD AND BEVERAGE COORDINATOR Mynx closure device ANESTHESIA: Monitored anesthesia care provided by the Anesthesiaservice. EBL: <50 ml CONTRAST: 18 mL Visipaque-320. RADIATION EXPOSURE: A-plane 302.3 mGy, B-plane 131.9 mGy. MATERIALS: Micropuncture set, 5Fr [place] sheath, 5Fr Juwan catheter. TECHNIQUE: The procedure [...] no immediate complications. Catheter was removed. R FOOD AND BEVERAGE COORDINATOR roadmapwas obtained. 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
--- OUTSIDE RECORDS SUMMARY | 2024-02-07 16:37 | XMS_ITS | Encounter Summary ---
Author Organization [facility] Address [facility] [place] [address] Care Team Providers Care Vice President Quality Assurance Name Role Phone Neda Keller MD Primary Care Provider [phone] Encounter Details Date Type Department Care Team (Late st Contact Info) Description 05/11/2016 Orders Only Neurosurgery at [facility] [address] [place] [address] Sarah Santiago RN Abnormal MRI Social History Tobacco Use Types Packs/Day Years [...] documented as of this encounter Results * (ABNORMAL) Creatinine (05/13/2016 10:30 AM EST) Creatinine 0.55(L) 0.70 - 1.20 mg/dL [facility] Comment: Please note that the pediatric reference intervals supplied above were not validated at [facility]. Results from pediatric patients should be interpreted in conjunction to the patient's age, height and muscle mass. Est Glomerular Filtration Rate >60 >=60 [facility] Comment: This estimated GFR (eGFR) value was calculated using the MDRD equation which has been validated on patients between the ages of 18 and 70. The MDRD should not be used to assess kidney function in patients < 18 years of age or in patients with extremes of body mass, or in patients with acute kidney failure. This value should be multiplied by 1.2 for patients. For further information please copy and paste the following links into your internet browser. http://Box/DHnkdep http://Box/DHMCnkf Blood specimen (specimen) 05/13/2016 10:30 AM EST 05/13/2016 10:35 AM EST Narrative Resulting Agency Comment Spec In Lab Meño Crouch MD CHEMISTRY ORDERABLES [facility] [place] [address] documented in this encounter Visit Diagnoses Diagnosis Abnormal MRI Other nonspecific (abnormal) findings on radiological and other examinations of body structure documented in this encounter Care Teams Vice President Quality Assurance Relationship Specialty Start Date End Date Neda Keller MD [address] [place] [address] PCP - General 01/28/10 03/05/22 documented as of this encounter
--- OUTSIDE RECORDS SUMMARY | 2024-02-07 16:37 | XMS_ITS | Encounter Summary ---
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 Procedures Halima Castellanos MD [address] [place] [address] [facility] [address] [place] [phone] Referral ID Status Reason Start Date Expiration Date V isits Requested Visits Authorized [id number] Closed Consult, Test & Treat PCP Updated and/or Approved 04/09/2016 04/09/2017 1 1 Encounter Details Date Type Department Care Team (Late st Contact Info) Description 04/29/2016 1:30 PM EST Office [place] [address] Meño Crouch MD [facility] [place] [address] Cerebral aneurysm; 6Th nerve palsy, right Social History Tobacco Use Types Packs/Day Years [...] Sign Reading Time Taken Comments Blood Pressure 130/69 04/29/2016 12:55 PM EST Pulse 79 04/29/2016 12:55 PM EST Temperature - - Respiratory Rate - - Oxygen Saturation - - Inhaled Oxygen Concentration - - Weight 61.5 kg (135 lb 9.6 oz) 04/29/2016 12:55 PM EST Height 147.3 cm (4' 10) 04/29/2016 12:55 PM EST Body Mass Index 28.34 04/29/2016 12:55 PM EST documented in this encounter Progress Notes * Meño Crouch MD - 04/29/2016 1:30 PM EST I have just seen Ms. Yuan in the Neurosurgery Clinic at the request of Dr. Castellanos. Ms. Yuan is a pleasant 80-year-old female who was in her usual state of health until last Thanksgiving where her family noted that she was having some abnormality with eye movement. This progressed to the point that she has a fairly clear sixth nerve palsy, and she has been evaluated for such. 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 She has not had any significant headaches and has not really noticed too much of a problem with this stating that she does not find it too bothersome in regards to double vision. Her past medical history is pertinent for hypertension and genetic confirmation of Marfan syndrome. The patient does not have any familial history of aneurysms. She denies smoking. On appearance, she does not look marfanoid but states that her daughter was tested and she was tested as well and does have the genetic abnormality. She has a clear sixth nerve palsy, but upward, downward, and inward gaze of her right eye is normal. She may have a slight ptosis, however, on the right side as well. 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 It has significant enhancement on post contrast images and appears to have flow voids on the noncontrast images. 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 I suggested that we get a CTA just to confirm this, and this will also allow us to evaluate whether she would be a candidate for potential coiling. Preferentially we would certainly do that in a 80 year old, but we would have to have one of our endovascular specialists review the CTA. We will make arrangements for the CTA and then make further plans at that time. I have gone over the symptoms with her of an aneurysmal rupture, and she will let us know if any of her other symptoms change. All questions were answered at the conclusion of this meeting. 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
--- OUTSIDE RECORDS SUMMARY | 2024-02-07 16:37 | XMS_ITS | Encounter Summary ---
Author Organization [facility] Address [facility] [place] [address] Care Team Providers Care Sales Enablement Analyst Name Role Phone Neda Keller MD Primary Care Provider Encounter Details Date Type Department Care Team (Late st Contact Info) Description 06/13/2016 [place] [address] Gary Ball MD [facility] [address] [place] [address] Social History Tobacco Use Types Packs/Day Years Used Date Smoking Tobacco: Never Smokeless Tobacco: Never Alcohol Use Standard Drinks/Week Comments Yes 0 (1 standard drink = 0.6 oz pur e alcohol) social Sex and Gender Information Value Date Recorded Sex Assigned at Not on file Gender Identity Not on file Sexual Orientation Not on file documented as of this encounter Progress Notes * Gary Ball MD - 06/13/2016 3:24 PM EDT Mrs Yuan called re headaches. These are primarily R sided and have gotten worse since discharge afew days ago (her decadron was discontinued). No other sxs. Wrote for dex taper for about a week. Also encouraged use of acetaminophen. She will call for any questions or additional concerns. documented in this encounter Plan of Treatment Not on file documented as of this encounter Visit Diagnoses Not on filedocumented in this encounter Care Teams Sales Enablement Analyst Relationship Specialty Start Date End Date Neda Keller MD [address] [place] [address] PCP - General 01/28/10 03/05/22 documented as of this encounter
--- OUTSIDE RECORDS SUMMARY | 2024-02-07 16:37 | XMS_ITS | Encounter Summary ---
Author Organization [facility] Address [facility] [place] [address] Care Team Providers Care Surgical Technologist Name Role Phone Neda Keller MD Primary Care Provider Encounter Details Date Type Department Care Team (Late st Contact Info) Description 05/14/2016 Telephone Neurosurgery at [facility] [place] [address] [place] [address] Rachel Ny Social History Tobacco [...] * Telephone Encounter - Rachel Ny - 05/14/2016 8:50 AM EST 05/[address] Crouch an email message asking him to review the patient's CTA done 05/13 and let me know how to proceed. documented in this encounter Plan of Treatment Not on file documented as of this encounter Visit Diagnoses Not on filedocumented in this encounter Care Teams Surgical Technologist Relationship Specialty Start Date End Date Neda Keller MD [address] [place] [address] PCP - General 01/28/10 03/05/22 documented as of this encounter
--- OUTSIDE RECORDS SUMMARY | 2024-02-07 16:37 | XMS_ITS | Encounter Summary ---
Author Organization [facility] Address [facility] [address] Care Team Providers Care Program Associate Name Role Phone Neda Keller MD Primary Care Provider [phone] Encounter Details Date Type Department Care Team (Latest Contact Info) Description 02/08/2017 11:20 AM EST - 02/08/2017 4:00 PM EST Hospital Encounter [place] [phone] Kash Morfin MD [facility] [place] [address] Discharge Disposition: Home Social History Tobacco Use [...] Sign Reading Time Taken Comments Blood Pressure 129/67 02/08/2017 3:00 PM EST Pulse 71 02/08/2017 3:00 PM EST Temperature 36.4 ??C (97.5 ??F) 02/08/2017 1:37 PM ES T Respiratory Rate 14 02/08/2017 3:00 PM EST Oxygen Saturation 96% 02/08/2017 3:00 PM EST Inhaled Oxygen Concentration - - Weight [...] Angiogram documented in this encounter Visit Diagnoses Diagnosis Cerebral aneurysm Cerebral aneurysm, nonruptured documented in this encounter Active and Recently [...] Vela) documented in this encounter Care Teams Program Associate Relationship Specialty Start Date End Date Neda Keller MD [address] [place] [address] PCP - General 01/28/10 03/05/22 documented as of this encounter
--- OUTSIDE RECORDS SUMMARY | 2024-02-07 16:37 | XMS_ITS | Encounter Summary ---
Author Organization [facility] Address [address] [place] [address] Care Team Providers Care Cell Coverer Name Role Phone Unavailable Primary Care Provider Unavailabl e Encounter Details Date Type Department Care Team (Late st Contact Info) Description 02/18/2004 8:15 EST - 02/18/2004 11:59 EST Hospital Encounter [facility] - Other [address] [place] [address] Grecia Archer, PLASTIC SURGERY SPECIALIST [address] [place] [address] Discharge Disposition: Auto Discharge Social History Tobacco Use Types Packs/Day Years Used Date Smoking Tobacco: Never Assessed Comments Unknown Sex and Gender Information Value Date Recorded Sex Assigned at Not on file Legal Sex Female 18:34 EST Gender Identity Not on file Sexual Orientation Not on file documented as of this encounter Discharge Disposition Disposition Code Departure Means Destination Auto Discharge documented in this encounter Plan of Treatment Not on file documented as of this encounter Visit Diagnoses Not on filedocumented in this encounter
--- OUTSIDE RECORDS SUMMARY | 2024-02-07 16:37 | XMS_ITS | Encounter Summary ---
Author Organization [facility] Address [address] [place] [address] Care Team Providers Care Mud Logger Name Role Phone Unavailable Primary Care Provider Unavailabl e Encounter Details Date Type Department Care Team (Late st Contact Info) Description 04/07/2007 8:10 EST - 04/07/2007 11:59 EST Hospital Encounter [facility] - Other [address] [place] [address] Neda Keller MD [address] [place] [address],[address] [place] [address] Discharge Disposition: Home or Self Care Social History Tobacco Use Types Packs/Day Years Used Date Smoking Tobacco: Never Assessed Comments Unknown Sex and Gender Information Value Date Recorded Sex Assigned at Not on file Legal Sex Female 18:34 EST Gender Identity Not on file Sexual Orientation Not on file documented as of this encounter Discharge Disposition Disposition Code Departure Means Destination Home or Self Care documented in this encounter Plan of Treatment Not on file documented as of this encounter Visit Diagnoses Not on filedocumented in this encounter
--- OUTSIDE RECORDS SUMMARY | 2024-02-07 16:37 | XMS_ITS | Encounter Summary ---
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 Procedures PRO PERM OCCLUSION/EMBOLIZATION, PERCUT, [employer] @TRANSCATHETER OCCLUSION/EMBOLIZATION FOR TUMOR DESTRUCTION Referral ID Status Reason Start Date Expiration Date Visits Re quested Visits Authorized [id number] 1 1 Encounter Details Date Type Department Care Team (Late st Contact Info) Description 06/08/2016 7:29 AM EDT [place] [address] Lamar Gautam MD [facility] [address] [place] [address] Noelle العلي MD [facility] [address] Anesthesia Record Procedure Summary Procedure Name Responsible Anesthesiologist Anesthesia Start Time Anesthesia Stop Time @TRANSCATHETER OCCLUSION/EMBOLIZATIO N FOR TUMOR DESTRUCTION (WRVU 20.12) Lamar Gautam MD 06/08/16 0729 06/08/16 1158 Events Date Time Event Comment 06/08/2016 0705 0729 AN Verify 0729 Start 0738 An Start Data 0748 An Induction 0756 An Intubation 0758 Anesthesia Ready 1119 Extubation/LMA Out 1131 an stop data 1158 Recovery or ICU Handoff Lisseth ent care was transferred to the destination unit staff after review of the patient's medical history, current anesthetic/surgical status and plan, according to the Provider Handoff Checklist. 1158 Stop Meds Name Total fentaNYL 100 mcg IV Lidocaine 60 mg Propofol 170 mg Rocuronium 10 mg Ondansetron 8 mg Dexamethasone 8 mg Neostigmine 2 mg Glycopyrrolate 0.4 mg Propofol INF 1,955.97 mg PHENYLephrine INF 940 mcg Heparin 6,000 Units Sodium Chloride 0.9% 1,500 mL * Agents Name O2 Air N2O Sevoflurane (et) * Blood No blood administrations on file. Lines, Drains, and Airways Type Details Placement Removal (RETIRED) Peripheral IV Line - Single Lumen 06/08/16; 0646; median cubital vein (antecubital fossa), left; 20 gauge; 06/10/16; 1144 06/08/16 0646 by Joseph Millan RN 06/10/16 114 by Lorraine Greenfield RN ETT Mask Ventilation: Ea sy (1); ETT Type: Cuffed, Oral; ETT Size: 6 mm; Indirect: Video; Notes: Pre-O2, Stylette; Attempts: 1; Laryngoscopy Grade: 1; ETT Placement Verified By: Auscultation, Capnometry; Inserted by: rebeca; Removal Date: 06/08/16; Removal Time: 205706/08/16 0756 by Noelle العلي MD 06/08/162057 by Fabiola Blas RN (RETIRED) Peripheral IV Line - Single Lumen 06/08/16; 0800 (in place on arrival to pacu); metacarpal vein (top of hand), right; 18 gauge; rebeca; (under anesthesia); 06/10/16; 1144 06/08/16 0800 by Haylie Vo RN 06/10/16 1144 by Lorraine Greenfield RN Urethral Catheter 06/08/16; 0808; Surg santo longer than 2 hours; indwelling double lumen catheter; 100% silicone; 14; inserted at this facility; 1; 10; none; drainage bag to dependent drainage; urethral catheter removed, tubing intact; 06/09/16; 1059 06/08/16 0808 by Jaz Thorpe RN 06/09/16 1059 by Yonathan Al RN Arterial Line 06/08/16; 0810; radi al artery, left; 20 gauge; rebeca; Sterile Prep, Sterile Gloves; no longer indicated, removed per policy, catheter intact; 06/08/16; 1345 06/08/16 0810 by Noelle العلي MD 06/08/16 1345 by Haylie Vo RN LDA Cath/EP Sheath 06/08/16; 1142 (dres sing in place post sheath on arrival to pacu); (no sheath in place; only puncture site); Right; Femoral 06/08/16 1142 by Haylie Vo RN 06/21/17 0921 by [employer], User documented in this encounter Social History Tobacco Use Types Packs/Day Years Used Date Smoking Tobacco: Never Smokeless Tobacco: Never Alcohol Use Standard Drinks/Week Comments Yes 0 (1 standard drink = 0.6 oz pur e alcohol) social Sex and Gender Information Value Date Recorded Sex Assigned at Not on file Gender Identity Not on file Sexual Orientation Not on file documented as of this encounter OR Notes * Anesthesia Postprocedure Evaluation - Lamar Gautam MD - 06/08/2016 3:54 PM EDT [facility] [place]iology Post-procedure Note Patient: Lianna Yuan Procedure Summary Date Anesthesia Start Anesthesia Stop Room / Location 06/08/16 0729 1158 [facility] INTERVENTIONAL RADIOLOGY / [facility] CELESTE Procedure Diagnosis Surgeon Responsible Provider @TRANSCATHETER OCCLUSION/EMBOLIZATION FOR TUMOR DESTRUCTION (N/A ) (abducens nerve palsy, right; aneurysm of cavernous portion of right internal carotid artery ) Kash Morfin MD Burchman, CoreyA, MD All Anesthesia Providers: Anesthesiologist: Lamar Gautam MD Hr Director: Noelle العلي MD Last (1hr) Vitals: BP Temp Pulse Resp SpO2 Patient Location: PACU/[facility] Level of Consciousness: Awake and Alert Pain Management: Satisfactory Analgesia PONV: None Cardiovascular Status: At Baseline and Hemodynamically Stable Respiratory Status: At Baseline and Room Air Postoperative Fluid Status: Intravascular EUvolemia Possible Anesthetic Complications: NONE apparent at time of evaluation Final Primary Anesthesia Type: General (The anesthetic type performed was the same as planned.) Comments: LAMAR GAUTAM MD * Anesthesia Preprocedure Evaluation - Noelle العلي MD - 06/06/2016 6:21 PM EDT Pre-Anesthesia Evaluation for: Lianna Yuan a 80 y.o. female. Procedure(s): @TRANSCATHETER OCCLUSION/EMBOLIZATION FOR TUMOR DESTRUCTION Patient Active Problem List Diagnosis ??? 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 6Th nerve palsy ??? Cerebral aneurysm No past medical history on file. No past surgical history on file. Social History Substance Use Topics ??? Smoking status: Never Smoker ??? Smokeless tobacco: Never Used ??? Alcohol use Yes Comment: social History Drug Use No No Known Allergies Medications: MAR and/or home medications have been reviewed. Physical Exam: There were no vitals filed for this visit. There is no height or weight on file to calculate BMI. Airway Assessment: Mallampati: II TM distance: <3 FB Neck ROM: limited Cardiovascular Assessment: cardiovascular exam normal Pulmonary Assessment: pulmonary exam normal Dental Assessment: Comment: Very poor dentition; many missing teeth. Limited moth opening, short thyromental distance,restricted lateral/extension/flexion of neck. Misc Assessment: IV access: Peripheral line Other exam findings: Right eye does not track laterally. Strength equal and 5/5 in all other extremities. Anesthesia Plan: ASA 3 general, with a(n) intravenous induction Lianna Yuan is a 80 y.o. 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 States she was told that she had a CVA by a physician, but recalls no stroke symptoms. No known hx SD. No GERD or ANDRADE. 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 Denies allergies. Anesthesia History: Prior Difficult Airway Oglesby 2 and bougie used; easy face mask and 7.0 ETT noted Cardiac History: TTE: EF 73%, CHRIS/LAE/Ascending aortic dilitation/Mild MR No results found for: WBC, HGB, HCT, MCV, PLATELET Lab Results Component Value Date CREATININE 0.55 (L) 05/13/2016 Plan is for GETA, CMAC and FOB backup, TIVA, arterial line, standard ASA monitors and adequate IV access. Risks and benefits of anesthesia were discussed with the patient, whose questions were answered. The patient understood and agreed with the noted plan. Noelle العلي MD Hr Director Pager # [phone] Region - Other Informed Consent: Anesthetic plan and risks discussed with patient. Plan discussed with attending. PAT Staff Note documented in this encounter Miscellaneous Notes * Addendum Note - Noelle العلي MD - 06/08/2016 4:14 PM EDT Addendum created 06/08/16 1614 by Noelle العلي MD Sign clinical note * Addendum Note - Noelle العلي MD - 06/08/2016 3:58 PM EDT Addendum created 06/08/16 1558 by Noelle العلي MD Anesthesia Intra LDAs edited, LDA properties accepted documented in this encounter Plan of Treatment Not on file documented as of this encounter Visit Diagnoses Not on filedocumented in this encounter Administered Medications Inactive Administered Medications - up to 3 most recent administrations Medication Order MAR Action Action Date Dose Rate Site dexamethasone (DECADRON) injection PRN, Starting on Wed06/08/16 at 0758, Until Wed06/08/16 at 1207, Anesthesia Intra-op, Routine Given 06/08/2016 7:58 AM EDT 8 mg fentaNYL 50 mcg/mL multi-dose injection PRN, Starting on Wed06/08/16 at 0846, Until Wed06/08/16 at 1207, Pain, Anesthesia Intra-op, Routine Given 06/08/2016 9:16 AM EDT 50 mcg Given 06/08/2016 8:46 AM EDT 25 mcg Given 06/08/2016 7:48 AM EDT 25 mcg glycopyrrolate (ROBINUL) multi-dose injection PRN, Starting on Wed06/08/16 at 1114, Until Wed06/08/16 at 1207, Anesthesia Intra-op, Routine Given 06/08/2016 11:14 AM EDT 0.4 mg heparin (porcine) injection PRN, Starting on Wed06/08/16 at 0944, Until Wed06/08/16 at 1207, Anesthesia Intra-op, Routine Given 06/08/2016 10:00 AM EDT 1,000 Units Given 06/08/2016 9:44 AM EDT 2,000 Units Given 06/08/2016 9:30 AM EDT 3,000 Units lidocaine (PF) (XYLOCAINE) 100 mg/5 mL (2 %) injection PRN, Starting on Wed06/08/16 at 0745, Until Wed06/08/16 at 1207, Anesthesia Intra-op, Routine Given 06/08/2016 11:11 AM EDT 20 mg Given 06/08/2016 7:45 AM EDT 40 mg neostigmine (PROSTIGMINE) multi-dose injection PRN, Starting on Wed06/08/16 at 1114, Until Wed06/08/16 at 1207, Anesthesia Intra-op, Routine Given 06/08/2016 11:14 AM EDT 2 mg ondansetron (ZOFRAN) injection PRN, Starting on Wed06/08/16 at 0730, Until Wed06/08/16 at 1207, Nausea, Anesthesia Intra-op, Routine Given 06/08/2016 11:20 AM EDT 4 mg Given 06/08/2016 7:30 AM EDT 4 mg PHENYLephrine (MAGDY-SYNEPHRINE) 20 mg in sodium chloride 250 mL (standard ADULT & Ioana greater than 20kg) infusion CONTINUOUS PRN, Starting on Wed06/08/16 at 0833, Until Wed06/08/16 at 1207, Anesthesia Intra-op, Routine Rate/Dose Change 06/08/2016 9:09 AM EDT 15 mcg/min 11.3 mL/hr Rate/Dose Change 06/08/2016 8:46 AM EDT 20 mcg/min 15 mL/h r Rate/Dose Change 06/08/2016 8:36 AM EDT 30 mcg/min 22.5 mL /hr propofol (DIPRIVAN) 10 mg/mL bolus injection (Anesthesia) PRN, Starting on Wed06/08/16 at 0748, Until Wed06/08/16 at 1207, Anesthesia Intra-op Given 06/08/2016 9:15 AM EDT 20 mg Given 06/08/2016 7:48 AM EDT 150 mg propofol (DIPRIVAN) infusion CONTINUOUS PRN, Starting on Wed06/08/16 at 0748, Until Wed06/08/16 at 1207, Anesthesia Intra-op, Routine Rate/Dose Change 06/08/2016 11:09 AM EDT 20 mcg/kg/min 7.3 mL/hr Rate/Dose Change 06/08/2016 11:07 AM EDT 40 mcg/kg/min 14. 6 mL/hr Rate/Dose Change 06/08/2016 11:00 AM EDT 75 mcg/kg/min 27. 5 mL/hr rocuronium (ZEMURON) multi-dose injection PRN, Starting on Wed06/08/16 at 0839, Until Wed06/08/16 at 1207, Anesthesia Intra-op, Routine Given 06/08/2016 8:39 AM EDT 10 mg sodium chloride 0.9% infusion CONTINUOUS PRN, Starting on Wed06/08/16 at 0748, Until Wed06/08/16 at 1207, Anesthesia Intra-op New Bag 06/08/2016 7:56 AM EDT New Bag 06/08/2016 7:48 AM EDT documented in this encounter Care Teams Pillowcase Maker Relationship Specialty Start Date End Date Neda Keller MD [address] [place] [phone] PCP - General 01/28/10 03/05/22 documented as of this encounter
--- OUTSIDE RECORDS SUMMARY | 2024-02-07 16:37 | XMS_ITS | Encounter Summary ---
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 Indications: pt not sure on dosage 06/10/2016 meTOPROLOL tartrate (LOPRESSOR) 25 mg Tablet Take 50 mg by mouth daily. 12/17/2020 amLODIPine (NORVASC) 5 mg Tablet Take 5 mg by mouth daily. 12/07/2018 documented as of this encounter H&P Notes * Kash Morfin MD - 06/08/2016 7:04 AM EDT 24-HOUR UPDATE Lianna Yuan was seen in SDP. No interval events or changes in health status since preoperative H+P(see EPIC). Denies angina/dyspnea/fevers or malaise within the last 14 days. All questions were answered. Stable for surgery as scheduled. R nerve palsy, unchanged. 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 2. Pipeline treatment of aneurysm. Narrative 06/12/2016 12:49 PM EDT EXAMINATION: IR ??EMBOLIZATION INTRACRANIAL CLINICAL HISTORY: cerebral aneurysm, will need to be coordinated with [employer]tr[employer] and vargas; ??Stiven Hernandez. See email to Lisa Justin; Exam/Procedure requested: cerebral angiography and coil embolization OPERATORS: Dr. Hetal Chris, Dr. Gary Ball, Dr. Kash Morfin. I, Dr. Kash Morfin, was present for the entire procedure. PROCEDURE: 1. Cerebral angiogram. 2. Pipeline embolization of right cavernous internal carotid artery aneurysm. 3. Perclose closure of femoral arteriotomy ANESTHESIA: General endotracheal anesthesia EBL: <50 ml CONTRAST: 85 mL Visipaque-320. RADIATION EXPOSURE: A-plane 910 mGy, B-plane ??475 mGy. MATERIALS: Micropuncture set,6Fr Shuttle sheath, 5Fr ??Vert catheter, 6 Fr. Navien catheter, Marksman microcatheter, Synchro2 soft microwire, ??5 x 18 mm Pipeline device, Transform 7 x 7 mm balloon, 9 Montserratian Bedminster sheath. TECHNIQUE: The procedure and its risks were discussed with the ??patient and written informed consent obtained. Patient's compliance with dual antiplatelet therapy was confirmed. The patient was brought to the angiography suite and placed under general anesthesia. The right groin was sterilely prepped and draped. A small amount of 1% lidocaine was applied at the planned puncture site. Using micropuncture set, the ??femoral artery was accessed and the ??6Fr Shuttle sheath placed in the aorta, flushed, and connected to a continuous heparinized saline infusion. A 3000 unit bolus of IV heparin was delivered to increase baseline ACT from 124 s to ??212 ??s. ACT was maintained between ??255 ??and ??290 ??s for the remainder of the case with additional boluses totalling ??3000 ??units heparin. A 5 Montserratian pigtail catheter was placed into the aortic arch and PERSIAN arch aortogram obtained. This catheter was removed. The central cc was then placed over the 5 Montserratian Vert catheter into the right common carotid artery. Biplane cerebral angiography performed. 3D rotational angiography was obtained and the resultant images were processed on a separate workstation to create 3D surface and MIP images that were subsequently used to measure vessel size, aneurysm neck, and choose working projections. The Navien catheter was placed through the sheath and into the petrous segment of the internal carotid artery over the Marksman microcatheter and Synchro microwire. Both catheters were flushed, and connected to a continuous heparinized saline infusions. The Marksman catheter was placed in the middle cerebral artery over the microwire. The microwire was removed. The stent was advanced into the distal aspect of the microcatheter and slowly deployed under fluoroscopic monitoring so that it covered the aneurysm neck and was well apposed to the aneurysm wall. The delivery wire was recaptured and the microcatheter withdrawn A Transform balloon was prepared and placed over the Synchro microwire to the level of the stent. It was gently inflated under fluoroscopic monitoring at sites where better wall apposition could be obtained. The ballon and microcatheter were removed. DynaCT was obtained with injection of 20% contrast at a rate of 3 cc/s The guide catheter was removed. Hand-injected sheath angiogram of the common femoral artery was performed. The long sheath was exchanged for a 9 Montserratian Bedminster sheath and the sheath was sewn in place. There were no immediate complications. The patient was transferred to the PACU in good condition. FINDINGS: ARCH AORTOGRAM: There is a bovine configuration of the aortic arch. There is mild calcific atherosclerotic irregularity at the arch and proximal great vessels including the origin of the right common carotid artery from the brachiocephalic. RIGHT COMMON CAROTID INJECTION: There is a 2 cm aneurysm arising from the horizontal segment of the cavernous sinus. It is largely spherical and has a 1 cm neck. The artery proximal to the aneurysm measures 5 mm while that distal to the aneurysm measures 3.5 mm. There is a second small aneurysm from the medial surface of the cavernous right internal carotid artery measuring 4 mm. There is mild focal stenosis of the internal carotid artery just distal to the aneurysm. The intracranial internal carotid artery and its major branches are of normal course and caliber. Right common carotid ARTERY INJECTIONS (HAND-INJECTED DURING STENT PLACEMENT): There is partial unsheathing of the stent. There is no flow limitation. There is no intraluminal thrombus. Right common carotid artery ARTERY INJECTION (POST EMBOLIZATION): The stent is fully deployed across the neck of the aneurysm. There is no intraluminal thrombus. The stent is mildly constrained at the site of the stenosis just distal to the aneurysm. There is contrast stagnation within the aneurysm. DYNACT: There is good apposition of the stent to the arterial wall. Procedure Note Kahs Morfin MD - 06/12/2016 EXAMINATION: IR EMBOLIZATION INTRACRANIAL CLINICAL HISTORY: cerebral aneurysm, will need to be coordinated withMedtronic and vargas; Stiven Hernandez. See email to Lisa Justin; Exam/Procedure requested: cerebral angiography and coil embolization OPERATORS: Dr. Hetal Chris, Dr. Gary Ball, Dr. Kash Morfin. I, Dr.Clifford Kvng Morfin, was present for the entire procedure. PROCEDURE: 1. Cerebral angiogram. 2. Pipeline embolization of right cavernous internal carotid arteryaneurysm. 3. Perclose closure of femoral arteriotomy ANESTHESIA: General endotracheal anesthesia EBL: <50 ml CONTRAST: 85 mL Visipaque-320. RADIATION EXPOSURE: A-plane 910 mGy, B-plane 475 mGy. MATERIALS: Micropuncture set,6Fr Shuttle sheath, 5Fr Vert catheter, 6Fr. Navien catheter, Marksman microcatheter, Synchro2 soft microwire, 5 x 18mm Pipeline device, Transform 7 x 7 mm balloon, 9 Montserratian Bedminster sheath. TECHNIQUE: The procedure and its risks were discussed with the patientand written informed consent obtained. Patient's compliance with dualantiplatelet therapy was confirmed. The patient was brought to the angiography suiteand placed under general anesthesia. The right groin was sterilely preppedand draped. A small amount of 1% lidocaine was applied at the planned puncturesite. Using micropuncture set, the femoral artery was accessed and the 6FrShuttle sheath placed in the aorta, flushed, and connected to a continuousheparinized saline infusion. A 3000 unit bolus of IV heparin was delivered toincrease baseline ACT from 124 s to 212 s. ACT was maintained between 255 eii474 s for the remainder of the case with additional boluses totalling 3000units heparin. A 5 Montserratian pigtail catheter was placed into the aortic arch andLAO arch aortogram obtained. This catheter was removed. The central cc wasthen placed over the 5 Montserratian Vert catheter into the right common carotidartery. Biplane cerebral angiography performed. 3D rotational angiography wasobtained and the resultant images were processed on a separate workstation tocreate 3D surface and MIP images that were subsequently used to measure vesselsize, aneurysm neck, and choose working projections. The Navien catheter was placed through the sheath and into the petroussegment of the internal carotid artery over the Marksman microcatheter andSynchro microwire. Both catheters were flushed, and connected to a continuous heparinized saline infusions. The Marksman catheter was placed in themiddle cerebral artery over the microwire. The microwire was removed. The stentwas advanced into the distal aspect of the microcatheter and slowly deployedunder fluoroscopic monitoring so that it covered the aneurysm neck and waswell apposed to the aneurysm wall. The delivery wire was recaptured and the microcatheter withdrawn A Transform balloon was prepared and placed over the Synchro microwire tothe level of the stent. It was gently inflated under fluoroscopic monitoringat sites where better wall apposition could be obtained. The ballon and microcatheter were removed. DynaCT was obtained with injection of 20% contrast at a rate of 3 cc/s The guide catheter was removed. Hand-injected sheath angiogram of thecommon femoral artery was performed. The long sheath was exchanged for a 9French Bedminster sheath and the sheath was sewn in place. There were no immediate complications. The patient was transferred to [facility] in good condition. FINDINGS: ARCH AORTOGRAM: There is a bovine configuration of the aortic arch. Thereis mild calcific atherosclerotic irregularity at the arch and proximalgreat vessels including the origin of the right common carotid artery from the brachiocephalic. RIGHT COMMON CAROTID INJECTION: There is a 2 cm aneurysm arising fromthe horizontal segment of the cavernous sinus. It is largely spherical and hasa 1 cm neck. The artery proximal to the aneurysm measures 5 mm while thatdistal to the aneurysm measures 3.5 mm. There is a second small aneurysm from themedial surface of the cavernous right internal carotid artery measuring 4 mm.There is mild focal stenosis of the internal carotid artery just distal to theaneurysm. The intracranial internal carotid artery and its major branches are ofnormal course and caliber. Right common carotid ARTERY INJECTIONS (HAND-INJECTED DURING STENTPLACEMENT): There is partial unsheathing of the stent. There is no flow limitation.There is no intraluminal thrombus. Right common carotid artery ARTERY INJECTION (POST EMBOLIZATION): Thestent is fully deployed across the neck of the aneurysm. There is no intraluminal thrombus. The stent is mildly constrained at the site of the stenosisjust distal to the aneurysm. There is contrast stagnation within the aneurysm. DYNACT: There is good apposition of the stent to the arterial wall. IMPRESSION 1. 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 2. Pipeline treatment of aneurysm. 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 Unqualified visual loss, one eye documented in this encounter Administered Medications Inactive Administered Medications - up to 3 most recent administrations Medication Order MAR Action Action Date Dose Rate Site iodixanol (VISIPAQUE) 320 mg iodine/mL injection 350 mL 350 mL, Intra-arterial, ONCE PRN, 1 dose, Starting on Wed06/08/16 at 1140, Until Wed06/08/16 at 1141, Per Protocol, Angio/IR (Intra-Procedure), Routine Given 06/08/2016 11:41 AM EDT 85 mLs documented in this encounter Care Teams Evening Or Night Nurse Supervisor Relationship Specialty Start Date End Date Neda Keller MD [address] [place] [phone] PCP - General 01/28/10 03/05/22 documented as of this encounter
--- OUTSIDE RECORDS SUMMARY | 2024-02-07 16:37 | XMS_ITS | Referral Summary ---
Author Organization [facility] Address [address] [place] [id number] Care Team Providers Care Matte Cutter Name Role Phone Unknown, Provider MD Primary Care Provider Unava ilable Social History Tobacco Use Types Packs/Day Years Used Date Smoking Tobacco: Never Assessed Comments Unknown Sex and Gender Information Value Date Recorded Sex Assigned at Not on file Legal Sex Female 18:34 EST Gender Identity Not on file Sexual Orientation Not on file Plan of Treatment Not on file Care Teams Matte Cutter Relationship Specialty Start Date End Date Unknown, Provider, PCP - General 01/21/15
--- OUTSIDE RECORDS SUMMARY | 2024-02-07 16:37 | XMS_ITS | Encounter Summary ---
Author Organization [facility] Address [address] [place] [address] Care Team Providers Care Manager Wireless Name Role Phone Unavailable Primary Care Provider Unavailabl e Encounter Details Date Type Department Care Team (Late st Contact Info) Description 02/18/2004 Results Only [facility] [address] [place] [address] Emmanuel Archer, GERONTOLOGICAL NURSE PRACTITIONER [address] [place] [address] Social History Tobacco Use Types Packs/Day Years [...] Procedure Name Priority Date/Time Associated Diagnosis Comments CYTOPATHOLOGY Routine 02/18/2004 0:00 EST documented in this encounter Results * CYTOPATHOLOGY (02/18/2004 0:00 EST) Pathology Report: CYTOPATHOLOGY REPORT Reports generated via electronic interface contain original data; however they are lacking the format of the original report. Caution should be taken when reading/interpreti ng unformatted reports. Name: ? LEONBritni LIANNA ? Accession #: ? [id number] : ? 1935 (Age: 68) ??F ?Collect Date: ? 02/18/2004 Location: ? [facility] ? Receive Date: ? 02/21/2004 Provider: ?EMMANUEL ARCHER OIL REFINERY PROCESS TECHNICIAN Copy to: ? Specimen/Source: ?ThinPrep Pap Test, Cervix/Endocervix Last Menstrual Period: ? Menstrual/Pregnanc y Status: ? Menopausal Other: ? HPVA - HPV testing requested if ASC-US on the current ThinPrep Pap test. ? SPECIMEN ADEQUACY ? Satisfactory for Evaluation - transformation zone component present GENERAL CATEGORIZATION ? Negative for Intraepithelial Lesion or Malignancy INTERPRETATION ? Reactive cellular changes associated with inflammation present (includes repair). ? Document reviewed and electronically signed by: ? OLEG THOMPSON MD ? Report Date: ??02/27/2004 11:47 End of Report [facility] 02/18/2004 02/21/2004 us Emmanuel Archer GERONTOLOGICAL NURSE PRACTITIONER PATHOLOGY ORDERABLES Final Result [facility] [address] [place] [address] documented in this encounter Visit Diagnoses Not on filedocumented in this encounter
--- OUTSIDE RECORDS SUMMARY | 2024-02-07 16:37 | XMS_ITS | Encounter Summary ---
Author Organization [facility] Address [address] [place] [address] Care Team Providers Care Mannequin Wig Maker Name Role Phone Unavailable Primary Care Provider Unavailabl e Encounter Details Date Type Department Care Team (Late st Contact Info) Description 04/07/2007 Results Only [facility] [place] [facility] [address] [place] [address] Neda Forbes MD [address] [place] [address],[address] [place] [address] Social History Tobacco Use Types Packs/Day Years [...] Priority Date/Time Associated Diagnosis Comments CYTOPATHOLOGY Routine 04/07/2007 0:00 EST documented in this encounter Results * CYTOPATHOLOGY (04/07/2007 0:00 EST) Pathology Report: CYTOPATHOLOGY REPORT Reports generated via electronic interface contain original data; however they are lacking the format of the original report. Caution should be taken when reading/interpreti ng unformatted reports. Name: ? LIANNA YUAN ? Accession #: ? [id number] : ? 1935 (Age: 71) ??F ?Collect Date: ? 04/07/2007 Location: ? [facility] ? Receive Date: ? 04/11/2007 Provider: ?NEDA FORBES MD Copy to: ? Specimen/Source: ?ThinPrep Pap Test, Cervix, processed on [employer] ThinPrep Imaging System, with manual evaluation Last Menstrual Period: ? age 43 Other: ? HPVA - HPV testing requested if ASC-US on the current ThinPrep Pap test. ? SPECIMEN ADEQUACY ? Satisfactory for Evaluation - transformation zone component present GENERAL CATEGORIZATION ? Negative for Intraepithelial Lesion or Malignancy ? Document reviewed and electronically signed by: ? Bradley Dasilva, CT(ASCP) ? Report Date: ??04/15/2007 09:43 End of Report [facility] 04/07/2007 04/11/2007 us Neda Forbes MD PATHOLOGY ORDERABLES Final R esult [facility] [address] [place] [address] documented in this encounter Visit Diagnoses Not on filedocumented in this encounter
--- OUTSIDE RECORDS SUMMARY | 2024-02-07 16:37 | XMS_ITS | Encounter Summary ---
Author Organization Formerly [facility] Address [facility] [place] [address] Care Team Providers Care Trim Installer Name Role Phone Neda Keller MD Primary Care Provider Encounter Details Date Type Department Care Team (Late st Contact Info) Description 02/08/2017 12:17 PM [place] [address] Walter Saul MD [facility] [place] [address] Summer Washburn MD [facility] [place] [address] Anesthesia Record Procedure Summary Procedure Name Responsible Anesthesiologist Anesthesia Start Time Anesthesia Stop Time @TRANSCATHETER OCCLUSION/EMBOLIZATIO N FOR TUMOR DESTRUCTION (WRVU 20.12) Walter Saul MD 02/08/17 1217 02/08/17 1345 Events Date Time Event Comment 02/08/2017 1151 1217 AN Verify 1217 Start 1217 An Start Data 1231 An Induction 1231 Anesthesia Ready 1240 Quick Note Pt briefly apne ic, placed 30 mm CAMPUS ADMINISTRATIVE ASSISTANT airway 1241 Procedure Start 1326 Procedure Stop 1333 an stop data 1343 Recovery or ICU Handoff Lisseth ent care was transferred to the destination unit staff after review of the patient's medical history, current anesthetic/surgical status and plan, according to the Provider Handoff Checklist. 1345 Stop Meds Name Total Propofol 150 mg Dexmedetomidine INF 40.01 mcg lactated Ringers infusion 1,000 mL 250 m L * Agents Name O2 Air N2O Sevoflurane (et) O2 Auxiliary Flowmeter 1 * Blood No blood administrations on file. Lines, Drains, and Airways Type Details Placement Removal LDA Cath/EP Sheath 06/08/16; 1142 (dressing in place post sheath on arrival to pacu); (no sheath in place; only puncture site); Right; Femoral 06/08/16 1142 by Haylie Vo RN 06/21/17 0921 by MenuSpring, User (RETIRED) Peripheral IV Line - Single Lumen 02/08/17; 1210; metacarpal vein (top of hand), left; [id number] catheter system; 18 gauge; MD Vela; distraction, intradermal injection, tolerated well, appears comfortable; no longer indicated, removed per policy/procedure, catheter/device intact; 02/08/17; 1534 02/08/17 1210 by Polo Mukherjee RN 02/08/17 1534 by Jenny Oliva RN documented in this encounter Social History Tobacco [...] OR Notes * Anesthesia Postprocedure Evaluation - Walter Saul MD - 02/08/2017 2:16 PM EST [facility] Department of Anesthesiology Post-procedure Note Patient: Lianna Yuan Procedure Summary Date Anesthesia Start Anesthesia Stop Room / Location 02/08/17 1217 1345 [facility] INTERVENTIONAL RADIOLOGY / [facility] Procedure Diagnosis Surgeon Responsible Provider @TRANSCATHETER OCCLUSION/EMBOLIZATION FOR TUMOR DESTRUCTION (N/A ) (Cerebral Angiogram) Kash Morfin MD Hillier, Simon C, MD All Anesthesia Providers: Anesthesiologist: Walter Saul MD Outpatient Program Coordinator: Vasquez Vela MD Most Recent Vitals: 02/08/17 1337 BP: 115/69 Pulse: 54 Resp: 16 Temp: 36.4 ??C (97.5 ??F) SpO2: 97% Pain Patient Location: PACU/HIP Level of Consciousness: Awake and Alert Pain Management: Satisfactory Analgesia PONV: None Cardiovascular Status: At Baseline Respiratory Status: At Baseline Postoperative Fluid Status: Intravascular EUvolemia Possible Anesthetic Complications: NONE apparent at time of evaluation Final Primary Anesthesia Type: Comments: * Anesthesia Preprocedure Evaluation - Walter Saul MD - 02/07/2017 8:31 AM EST Pre-Anesthesia Evaluation for: Lianna Yuan a 81 y.o. female. Procedure(s): @TRANSCATHETER OCCLUSION/EMBOLIZATION FOR TUMOR DESTRUCTION Patient Active Problem List Diagnosis ??? Marfan's syndrome ??? Difficult airway 11/06/05 Required venita cabrera/ diego 2 and record noted difficult airway 06/08/16 poor dentition, limited moth opening and limited neck mobility observed by publicity writer; ??? 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 Cerebral aneurysm No past medical history on file. Past Surgical History: Procedure Laterality Date ??? PRO PERM OCCLUSION/EMBOLIZATION, PERCUT, SPOUTING INSTALLER N/A 06/08/2016 @TRANSCATHETER OCCLUSION/EMBOLIZATION FOR TUMOR DESTRUCTION performed by Kash Morfin MD at [facility] Social History Substance Use Topics ??? Smoking status: Never Smoker ??? Smokeless tobacco: Never Used ??? Alcohol use Yes Comment: social History Drug Use No No Known Allergies Medications: MAR and/or home medications have been reviewed. Physical Exam: There were no vitals filed for this visit. There is no height or weight on file to calculate BMI. Airway Assessment: Mallampati: III TM distance: <3 FB Neck ROM: limited Cardiovascular Assessment: cardiovascular exam normal Pulmonary Assessment: pulmonary exam normal Dental Assessment: (+) upper dentures Misc Assessment: Anesthesia Plan: ASA 3 general, with a(n) intravenous induction This is a preliminary note Lianna Yuan is a 81 y.o. 61.2 kg female presenting for IR angiography and aneurysm coiling. 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 Also history of apparent dilated cardiomyopathy, but 2011 TTEfor assessment for ascending aortic aneurysm only significant for mild LVH, EF 70%, and mild aorticroot dilation. Prior CVA, but no apparent stroke symptoms. 05/2016 Labs were reviewed and notable for Hgb 12.7 Plt 151 Cr 0.55 Type and Screen: No results found for: ABORH Allergies: No Known Allergies NPO Status: Appropriate Anesthetic History: Previously labeled difficult airway due to prominent R front tooth and small mouth opening (easy mask, Oglesby 2/Gr 3 view w bougie due to inability to place ETT directly), subsequently Gr 1 w CMAC, no bougie required. Prior exam mouth small, dentition, poor; limited head rotation Anesthetic Plan: GA with ETT, elective CMAC Arterial line monitoring in addition to standard ASA monitoring Adequate IV access Vasquez Vela MD PhD CA-3 #[id number] Region - Intracranial (vascular) Informed Consent: PAT Staff Note documented in this encounter Plan of Treatment Not on file documented as of this encounter Visit Diagnoses Not on filedocumented in this encounter Administered Medications Inactive Administered Medications - up to 3 most recent administrations Medication Order MAR Action Action Date Dose Rate Site dexmedetomidine (PRECEDEX) IV infusion (anesthesia) CONTINUOUS PRN, Starting on Wed02/08/17 at 1222, Until Wed02/08/17 at 1415, Anesthesia Intra-op, Routine Rate/Dose Change 02/08/2017 1:13 PM EST 0.4 mcg/kg/hr 5.7 mL/hr Rate/Dose Change 02/08/2017 12:40 PM EST 0.7 mcg/kg/hr 10 mL/hr New Bag 02/08/2017 12:22 PM EST 1 mcg/kg/hr 14.3 mL/hr lactated Ringers infusion 1,000 mL 1,000 mL, at 100 mL/hr, Intravenous, CONTINUOUS, Starting on Wed02/08/17 at 1215, Until Wed02/08/17 at 1525, Day of Surgery (Day of Procedure) New Bag 02/08/2017 12:17 PM EST propofol (DIPRIVAN) 10 mg/mL bolus injection (Anesthesia) PRN, Starting on Wed02/08/17 at 1222, Until Wed02/08/17 at 1415, Anesthesia Intra-op Given 02/08/2017 1:16 PM EST 10 mg Given 02/08/2017 1:02 PM EST 10 mg Given 02/08/2017 12:58 PM EST 20 mg documented in this encounter Care Teams Trim Installer Relationship Specialty Start Date End Date Neda Keller MD [address] [place] [address] PCP - General 01/28/10 03/05/22 documented as of this encounter
--- OUTSIDE RECORDS SUMMARY | 2024-02-07 16:37 | XMS_ITS | Encounter Summary ---
Author Organization [facility] Address [facility] [place] [address] Care Team Providers Care Drying Can Worker Name Role Phone Neda Keller MD Primary Care Provider [phone] Encounter Details Date Type Department Care Team (Late st Contact Info) Description 07/07/2016 Telephone Neurosurgery at [facility] [place] [address] Sarah Santiago RN Social History [...] Telephone Encounter - Sarah Santiago RN - 07/07/2016 10:41 AM EDT Per article from [employer] titled Even Short-term Oral Steroids Carry Serious Risk 'Within 30 days of initiating these drugs, even at relatively low doses, users had a nearly twofoldincreased risk for fracture, a threefold increased risk for venous thromboembolism, and a fivefold increased risk for sepsis.' Lianna was started on Dexamethasone 2 mg three times daily on 06/30/16 for c/o difficulty opening her right eye, s/p right ICA aneurysm pipeline stent on 06/08/16. I called Lianna today and she states it has not made a difference in opening the eye. I told her she could start tapering the dose by taking it twice today and discussing it with Dr. Morfin at her f/u appointment tomorrow. She verbalized understanding. documented in this encounter Plan of Treatment Not on file documented as of this encounter Visit Diagnoses Not on filedocumented in this encounter Care Teams Drying Can Worker Relationship Specialty Start Date End Date Neda Keller MD [address] [place] [address] PCP - General 01/28/10 03/05/22 documented as of this encounter
--- OUTSIDE RECORDS SUMMARY | 2024-02-07 16:37 | XMS_ITS | Encounter Summary ---
Author Organization [facility] Address [facility] [place] [address] Care Team Providers Care Microphone Operator Name Role Phone Neda Keller MD Primary Care Provider [phone] Reason for Referral * Consultation (Routine) - Specialty Diagnoses / Procedures Referred By Contac t Referred To Contact Otolaryngology Diagnoses Vestibular dysfunction of right ear Dizziness Pantera Savage MD [facility] [place] [address] [place], [place] Referral ID Status Reason Start Date Expiration Date V isits Requested Visits Authorized [id number] Consult, Test & Treat 07/27/2016 07/27/2017 1 1 * Physical Therapy (Routine) - Specialty Diagnoses / Procedures Referred By Contac t Referred To Contact Physical Therapy Diagnoses Vestibular dysfunction of right ear Dizziness Pantera Savage MD [facility] [place] [address] Referral ID Status Reason Start Date Expiration Date V isits Requested Visits Authorized Evaluate and Treat 07/27/2016 01/23/2017 12 12 Reason for Visit * Consultation (Routine) - Closed Specialty Diagnoses / Procedures Referred By Contac t Referred To Contact Neurology Diagnoses Imbalance Dizziness Kash Morfin MD [facility] DIAGNOST[place] [address] [facility] [address] [place] [address] Referral ID Status Reason Start Date Expiration Date V isits Requested Visits Authorized [id number] Closed Consult, Test & Treat 07/08/2016 07/08/2017 1 1 Encounter Details Date Type Department Care Team (Late st Contact Info) Description 07/27/2016 7:15 AM EDT [place] [address] Pantera Savage MD [facility] [place] [address] Vestibular dysfunction of right ear; Dizziness; 3Rd nerve palsy, partial, right; 6Th nerve palsy, right Social History Tobacco [...] Sign Reading Time Taken Comments Blood Pressure 112/82 07/27/2016 8:06 AM EDT Pulse 71 07/27/2016 8:06 AM EDT Temperature - - Respiratory Rate - - Oxygen Saturation - - Inhaled Oxygen Concentration - - Weight 61.2 kg (135 lb) 07/27/2016 8:06 AM EDT Height 147.3 cm (4' 10) 07/27/2016 8:06 AM EDT reported Body Mass Index 28.22 07/27/2016 8:06 AM EDT documented in this encounter Progress Notes * Pantera Savage MD - 07/27/2016 7:15 AM EDT Images from the original note were not included. NEUROLOGY CLINIC [facility] [place] [address] Facsimile: 07/27/2016 Patient name: Lianna Yuan Date of : 1935 Referring provider: Neda Keller MD [facility] [address] [place] [id number] HISTORY OF PRESENTING COMPLAINTS: 80 Y F referred for evaluation of imbalance/ dizziness. She has a recent history of aneurysm repairfor a large ICA aneurysm in the cavernous segment on the right side. She had R IIIrd and VIth nervepalsy before that. She was treated with a pipeline stent. She says her dizziness started after the operation. She had headache at that time and was treated with steroids for a short course which didn't help her much. She feels like her equilibrium is off. This happens mainly during standing or walking. She feels better when she sits down. She doesn't feel any room spinning sensation. She has a persistent R eye ptosis. She used to be very active in the past and this disability has made her limit her activities and she is disappointed due to it. She also has double vision when she is standing or walking. She has history of HTN, HL. She has history of cervical myelopathy which was treated surgically here some years ago. At that time she was having problems with bending, shoulder pains etc. 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 She lives with her pets in [facility]. Her grandson lives nearby. She doesn't smoker or drink. 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 She has 2 daughters. Her daughter noticed that her hearing has diminished lately. ROS: otherwise negative PMHx: History reviewed. No pertinent past medical history. Past Surgical History: Procedure Laterality Date ??? PRO PERM OCCLUSION/EMBOLIZATION, PERCUT, TUMBLER MACHINE OPERATOR N/A 06/08/2016 @TRANSCATHETER OCCLUSION/EMBOLIZATION FOR TUMOR DESTRUCTION performed by Kash Morfin MD at [facility] Medications: Current Outpatient Prescriptions on File Prior to Visit Medication Sig Dispense Refill ??? atorvastatin (LIPITOR) 40 mg Tablet Take 40 mg by mouth daily. ??? MELATONIN ORAL Take by mouth nightly as needed. ??? clonazePAM (KLONOPIN) 0.5 mg Tablet, Rapid Dissolve Take 0.5 mg by mouth nightly as needed. /4tab ??? OMEGA-3S/DHA/EPA/FISH OIL (OMEGA 3 ORAL) Take [...] facility-administered medications on file prior to visit. Allergies: No Known Allergies Family History: History reviewed. No pertinent family history. Aneurysm Social History: reports that she has never smoked. She has never used smokeless tobacco. She reports that she drinks alcohol. She reports that she does not use illicit drugs. No flowsheet data found. Vitals: BP 112/82 (BP Location (NBP): Right arm, Patient Position: Sitting, BP Cuff Sizes: Adult (25-34 cm)) Pulse 71 Ht (!) 147.3 cm (4' 10) Comment: reported Wt 61.2 kg (135 lb) BMI 28.22 kg/m2 Physical Examination: General and Systemic: Moderately built and nourished. Lungs clear. S1S2 normal. Neurological Examination o Higher functions: - Speech: fluent, no aphasia/dysarthria or dysphonia - Alert and oriented. o Cranial Nerves - II-XII: Eyes dysconjugate at baseline. Pupils bilaterally constricted, sluggishly reacting to light. R eye ptosis +, R Lateral rectus palsy, R partial 3rd nerve palsy. No field deficits.No facial droop. No weakness of jaw/uvula/ palate - Fundus: Limited visualization. - Ear wax on right side. o Reflexes - +2 Bilaterally biceps, knee and ankle. o Motor and Coordination - Normal tone, bulk strength and coordination of right and left sided muscles o Sensory - Normal sensations bilaterally. o Skull and Spine/ Gait - Normal - Normal gait - Tandem: Imbalance with tendency to fall to R LABS/IMAGING: ASSESSMENT: 80 Y F with history of HTN, recent pipeline stent for R ICA aneurysm referred for evaluation of persistent dizziness. Even though she states that the dizziness started after the procedure, prior noted indicates that dizziness before the aneurysm was detected. Her dizziness episodes are mainly positional. She has a persistent R n, IIIn palsy with R sided ptosis. She has imbalance ontandem with tendency to sway to the right side. IMPRESSION: Imbalance . Recent R ICA aneurysm repair. R IIIn, Sourav palsy. Vestibular dysfunction right. PLAN/RECOMMENDATIONS: She seems to have vestibular dysfunction and cranial nerve palsy as the main causes of her dizziness. There could be a cervicogenic component as well. Will get audiometry and VNG testing through ENT. Will refer for vestibular and balance PT to help with her symptoms. Will consider an MRI brain in the future if there is worsening of her symptoms. Follow up in one month. Pantera Savage MD Department of Neurology [facility] documented in this encounter Plan of Treatment Scheduled Referrals Name Type Priority Associated Diagnoses Orde r Schedule Referral to Physical Therapy Outpatient Referral Routine Vestibular dysfunction of right ear Dizziness Ordered: 07/27/2016 Referral to ENT Outpatient Referral Routine Vestibular dysfunction of right ear Dizziness Ordered: 07/27/2016 documented as of this encounter Visit Diagnoses Diagnosis Vestibular dysfunction of right ear Dizziness Dizziness and giddiness 3rd nerve palsy, partial, right 6th nerve palsy, right documented in this encounter Care Teams Microphone Operator Relationship Specialty Start Date End Date Neda Kelelr MD [address] [place] [address] PCP - General 01/28/10 03/05/22 documented as of this encounter
--- OUTSIDE RECORDS SUMMARY | 2024-02-07 16:37 | XMS_ITS | Encounter Summary ---
Author Organization [facility] [place] [address] Care Team Providers Care Wool Hat Sanding Machine Operator Name Role Phone Neda Keller MD Primary Care Provider [phone] Encounter Details Date Type Department Care Team (Late st Contact Info) Description 05/13/2016 10:25 AM EST Laboratory Appointment Lab [facility] [place] [address] Abnormal MRI Social History Tobacco Use Types [...] Procedure Name Priority Date/Time Associated Diagnosis Comments CREATININE STAT 05/13/2016 10:30 AM EST Abnormal MRI documented in this encounter Results * (ABNORMAL) Creatinine (05/13/2016 10:30 AM EST) Creatinine 0.55(L) 0.70 - 1.20 mg/dL [facility] Comment: Please note that the pediatric reference intervals supplied above were not validated at [facility]. Results from pediatric patients should be interpreted in conjunction to the patient's age, height and muscle mass. Est Glomerular Filtration Rate >60 >=60 [facility] Comment: This estimated GFR (eGFR) [...] the following links into your internet browser. [email or web address] Blood specimen (specimen) 05/13/2016 10:30 AM EST 05/13/2016 10:35 AM EST Narrative Resulting Agency Comment Spec In Lab Meño Crouch MD CHEMISTRY ORDERABLES Performing Organization Address City/State/[facility] [place] [address] documented in this encounter Visit Diagnoses Diagnosis Abnormal MRI Other nonspecific (abnormal) findings on radiological and other examinations of body structure documented in this encounter Care Teams Wool Hat Sanding Machine Operator Relationship Specialty Start Date End Date Neda Keller MD [address] [place] [address] PCP - General 01/28/10 03/05/22 documented as of this encounter
--- OUTSIDE RECORDS SUMMARY | 2024-02-07 16:37 | XMS_ITS | Encounter Summary ---
Author Organization [facility] Address [facility] [place] [address] Care Team Providers Care Collections Technician Name Role Phone Neda Keller MD Primary Care Provider Encounter Details Date Type Department Care Team (Late st Contact Info) Description 05/11/2016 Orders [place] [address] Meño Crouch MD [facility] [place] [address] Social History Tobacco Use Types Packs/Day Years [...] on filedocumented in this encounter Care Teams Collections Technician Relationship Specialty Start Date End Date Neda Keller MD [address] [place] [address] PCP - General 01/28/10 03/05/22 documented as of this encounter
--- OUTSIDE RECORDS SUMMARY | 2024-02-07 16:37 | XMS_ITS | Encounter Summary ---
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 Procedures IR embolization intracranial Kash Morfin MD [facility] [place] [address] [place] [address] Referral ID Status Reason Start Date Expiration Date V isits Requested Visits Authorized [id number] Closed Specialty Service Requested 05/27/2016 05/27/2017 1 1 Reason for Visit * Reason Comments Aneurysm * Consultation (Routine) - Closed Specialty Diagnoses / Procedures Referred By Amarilis t Referred To Contact Neurosurgery Diagnoses cavernous aneurysm Procedures cavernous aneurysm Meño Crouch MD [facility] [place] [address] Kash Morfin MD [facility] [place] [address] Referral ID Status Reason Start Date Expiration Date Visits Re quested Visits Authorized [id number] Closed 05/15/2016 05/15/2017 1 1 Encounter Details Date Type Department Care Team (Late st Contact Info) Description 05/27/2016 9:00 AM EDT [place] [address] Kash Morfin MD [facility] [place] [address] Abducens nerve palsy, right; 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; Vision loss of right eye Social History Tobacco Use Types Packs/Day Years [...] Sign Reading Time Taken Comments Blood Pressure 123/68 05/27/2016 9:08 AM EDT Pulse 76 05/27/2016 9:08 AM EDT Temperature - - Respiratory Rate - - Oxygen Saturation - - Inhaled Oxygen Concentration - - Weight 61.3 kg (135 lb 3.2 oz) 05/27/2016 9:08 A M EDT Height 147.3 cm (4' 10) 05/27/2016 9:08 AM EDT Body Mass Index 28.26 05/27/2016 9:08 AM EDT documented in this encounter Progress Notes * Kash Morfin MD - 05/27/2016 9:00 AM EDT Interventional Neuroradiology Clinic Initial Visit Office Note Note Author: Kash Morfin MD Chief Complaint: Cerebral aneurysm History of present illness: Lianna Yuan is a 80 y.o. woman with an unruptured cerebral aneurysm, referred for evaluation and possible treatment by Dr. Crouch. In Jan 2016 her daughter first noticed discongugate eye movements. This has gradually worsened to produce noticeable double vision forher on rightward vision. She also endorses substantially decreased ability to read from the right eye. No headache. She has a Marfan syndrome and she sees Dr. Villasenor in [place] for some type of dilated cardiomyopathy. PMH: HTN Hypercholesterolemia Anxiety Hx cervical spine surgery with right arm injury Current Outpatient Prescriptions on File Prior to Visit Medication Sig Dispense Refill ??? meTOPROLOL tartrate (LOPRESSOR) 25 mg Tablet Take 25 mg by mouth daily. 1.5 tabs ??? amLODIPine (NORVASC) 5 mg Tablet Take 5 mg by mouth daily. ??? simvastatin (ZOCOR) 20 mg Tablet Take 20 mg by mouth nightly. No current facility-administered medications on file prior to visit. No Known Allergies Physical exam: Vitals: 05/27/16 0908 BP: 123/68 Pulse: 76 Exam: Right CN palsy. Also slight limitation on upgaze. PERRL Unable to read text with right eye. Sees shapes. Face symmetric Tongue midline Full strength in 4 extrem except proximal right arm abduction. No drift Alert, or x 3 Nl speech Comparing with her ophthalmology exam of 04/24, this appears to represent a substantial worsening ofher right eye vision. Imaging studies: CTA shows a 2.5 cm cavernous internal carotid artery aneurysm. It projects laterally. 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 It is symptomatic, producing a 6th nerve palsy. It is quite large and may serve as a source of emboli. These features warrant treatment since it may prevent worsening of her abducens palsy and vision loss, or even reverse them. The best available technique for these aneurysms at this time is flow diversion (Pipeline). We discussed the benefits andrisks (stroke, aneurysm rupture, fistula formation, groin hematoma, vessel injury, adverse reactionto medications) of this procedure. I have recommended and she would like to pursue treatment at this time Plan: 1. Contact Dr. Pineda's office for their notes. 3. Schedule procedure with [place] 4. Engage Pipeline approval process 5. Start ASA, Plavix for 10 days prior to procedure. Of this >60 (New Consultation Level IV) minute visit, 45 minutes minutes was spent in counselingand coordination of care. documented in this encounter Plan of Treatment Not on file documented as of this encounter Results * IR embolization intracranial [...] Transform 7 x 7 mm balloon, 9 Haitian Coleman sheath. TECHNIQUE: The procedure and its risks [...] boluses totalling ??3000 ??units heparin. A 5 Haitian pigtail catheter was placed into the aortic arch and JOHNNY arch aortogram obtained. This catheter was removed. The central cc was then placed over the 5 Haitian Vert catheter into the right common carotid [...] long sheath was exchanged for a 9 Haitian Coleman sheath and the sheath was sewn in [...] stent to the arterial wall. Procedure Note Kash Morfin MD - 06/12/2016 EXAMINATION: IR EMBOLIZATION [...] Transform 7 x 7 mm balloon, 9 Haitian Coleman sheath. TECHNIQUE: The procedure and its risks [...] 212 s. ACT was maintained between 255 etv412 s for the remainder of the case with additional boluses totalling 3000units heparin. A 5 Haitian pigtail catheter was placed into the aortic arch andLAO arch aortogram obtained. This catheter was removed. The central cc wasthen placed over the 5 Haitian Vert catheter into the right common carotidartery. [...] long sheath was exchanged for a 9French Coleman sheath and the sheath was sewn in place. There were no immediate complications. The patient was transferred to [facility] in good condition. 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
--- OUTSIDE RECORDS SUMMARY | 2024-02-07 16:37 | XMS_ITS | Clinical Summary ---
Author Organization [facility] Address [address] [place] [address] Care Team Providers Care Paper Tube Grader Name Role Phone Unknown, Provider MD Primary Care Provider Unava ilable Social History Tobacco Use Types Packs/Day Years Used Date Smoking Tobacco: Never Assessed Comments Unknown Sex and Gender Information Value Date Recorded Sex Assigned at Not on file Legal Sex Female 18:34 EST Gender Identity Not on file Sexual Orientation Not on file Plan of Treatment Health Maintenance Due Date Last Done Comments Fall Risk Screening 2001 RSV Immunization ( o r 60+ Years) (1 - 1-dose 75+ series) 10/11/2011 COVID-19 Vaccine (2023- season) 2023 Care Teams Paper Tube Grader Relationship Specialty Start Date End Date Unknown, Provider, PCP - General 01/21/15
--- OUTSIDE RECORDS SUMMARY | 2024-02-07 16:37 | XMS_ITS | Encounter Summary ---
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 Procedures PRO PERM OCCLUSION/EMBOLIZATION, PERCUT, WINTER SPORTS MANAGER @TRANSCATHETER OCCLUSION/EMBOLIZATION FOR TUMOR DESTRUCTION Referral ID Status Reason Start Date Expiration Date Visits Re quested Visits Authorized [id number] 1 1 Encounter Details Date Type Department Care Team (Late st Contact Info) Description 06/08/2016 7:30 AM EDT - 06/08/2016 11:30 [place] [address] Kash Morfin MD [facility] DR [place] [address] @TRANSCATHETER OCCLUSION/EMBOLIZATION FOR TUMOR DESTRUCTION (WRVU 20.12) Social History Tobacco Use Types Packs/Day [...] opening and limited neck mobility observed by pattern chart writer; ??? 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 [...] syndrome and she sees Dr. Villasenor in [place] for some type of dilated cardiomyopathy. Hospital [...] Preston PA-C, August Cunningham PA-C, Pamela Merlos, SHOE DESIGNER: ?? Interventional Radiology - Dr. Morfin After office hours (5PM to 8AM) and on weekends you can reach neurosurgery by calling the hospital printer operator at and ask for the Neurosurgery [...] Preston PA-C, August Cunningham PA-C, Pamela Merlos, SHOE DESIGNER: ?? Interventional Radiology - Dr. oMrfin After office hours (5PM to 8AM) and on weekends you can reach neurosurgery by calling the hospital printer operator at and ask for the Neurosurgery [...] 2:53 PM EDT Patient transferred to [facility]. Patient walked over to her new room [...] at 06/09/16423 Last data filed at 06/09/16 0409 Gross per 24 hour Intake 3600 ml [...] without difficulty. PLAN MOVING FORWARD: Transfer to [facility] when bed clean INDIVIDUALIZED FALL PREVENTION INTERVENTIONS: [...] Insurance: AARP Prescription Coverage: yes Preferred Pharmacy: [facility] [address] [place] [address] Other: none Primary Care Provider: Neda Keller MD [phone] Patient/Caregiver Goals of Treatment: relax and make [...] transition of care planning. EZEQUIEL Bledsoe Pager: [phone] * Plan of Care - Fabiola Blas [...] care of patient. VSS. NSR, QTC 532, MD notified and EKG ordered. No complaints of [...] CPG). Outcome: Ongoing (Interventions Implemented as Appropriate) 06/08/16 180 Cardiac Cath/Percutaneous Coronary Intervention Problems Assessed (Cardiac Catheterization) all Problems Present (Cardiac Catheterization) none documented in this encounter Plan of Treatment Not on file documented as of this encounter Procedures Procedure Name Priority Date/Time Associated Diagnosis Comments PARARESCUE CRAFTSMAN SCAN 06/11/2016 12:00 AM EDT @TRANSCATHETER OCCLUSION/EMBOLIZATI [...] in this encounter Results * SCAN DOC: PARARESCUE CRAFTSMAN (06/11/2016 12:00 AM EDT) Anatomical Region Laterality Modality Other Narrative 06/11/2016 12:00 AM EDT Ordered by an unspecified provider. Scanning Provider MEDIA MGR SCAN EXT O RDR/RSLT * (ABNORMAL) APTT (06/09/2016 4:07 AM EDT) Pathologist [facility] Partial Thromboplastin Time 91(H) 25 - [address] [facility] Comment: The recommended therapeutic range for full dose, unfractionated heparin at [facility] is 80 ? 114 seconds. The use of the anti-Xa (heparin) level rather than the PTT is recommended for monitoring anticoagulation intensity in critically ill patients receiving unfractionated heparin by continuous IV infusion. Blood specimen (specimen) 06/09/2016 4:07 AM EDT 06/09/2016 4:12 AM EDT Narrative Resulting Agency Comment Spec In Lab Kash Morfin MD HEMATOLOGY ORDERABLE S Performing Organization Address City/State/[facility] Co de Phone Number [facility] [place] [address] * (ABNORMAL) Differential, Automated (06/09/2016 4:07 AM EDT) [facility] Neutrophil % 87.6 % [facility] Neutrophil Absolute 6.65(H) 1.70 - 6.10 x10(3)/mc L [facility] Lymph % 10.0 % [facility] Lymphocytes Abs 0.8(L) 0.9 - 3.2 x10(3)/mc L [facility] Monocyte % 1.8 % [facility] Monocyte Abs 0.1(L) 0.3 - 0.9 x10(3)/mc L [facility] Eos % 0.0 % [facility] Eosinophils Abs 0.0 0.0 - 0.4 x10(3)/mc L [facility] Basophil % 0.1 % [facility] Baso Absolute 0.0 0.0 - 0.1 x10(3)/mc L [facility] Immature Gran % 0.50 % [facility] Comment: Immature granulocytes(IG's)percentage and absolute count will include metamyelocytes, myelocytes, and promyelocytes. Blood smears from CBCs yielding IG's will be scanned manually for concordance. If this scan disagrees with the automated IG or if promyelocytes are noted, a manual differential will be performed. Immature Gran Absolute 0.04 0.00 - 0.04 x10(3)/mc L [facility] Blood specimen (specimen) 06/09/2016 4:07 AM EDT 06/09/2016 4:12 AM EDT Narrative Resulting Agency Comment Spec In Lab Kash Morfin MD HEMATOLOGY ORDERABLE S Performing Organization Address City/State/[facility] Co de Phone Number [facility] [place] [address] * Hemogram (06/09/2016 4:07 AM EDT) White Blood Cell 7.6 4.0 - 9.5 x10(3)/[facility] Red Blood Cell 4.13 4.00 - 5.21 x10(6)/[facility] Hemoglobin 12.7 11.7 - 15.5 gm/dL [facility] Hematocrit 38.7 35.7 - 45.8 % [facility] Mean Cell Volume 93.7 82.6 - 94.[address] [facility] Mean Cell Hemoglobin 30.8 27.1 - 32.[address] [facility] Mean Cell Hemoglobin Concentration 32.8 31.7 - 35.0 gm/dL [facility] Platelet 151 145 - 357 x10(3)/[facility] RDW Standard Deviation 42.5 37.0 - 46.0 [facility] RDW coefficient of variation 12.3 11.5 - 14.1 % [facility] Mean Platelet Volume 11.4 7.6 - 12.[address] [facility] NRBC% auto 0.0 % [facility] NRBC Absolute 0.000 0.000 - 0.000 x10(3)/mcL [facility] Blood specimen (specimen) 06/09/2016 4:07 AM EDT 06/09/2016 4:12 AM EDT Narrative Resulting Agency Comment Spec In Lab Kash Morfin MD HEMATOLOGY ORDERABLE S Performing Organization Address [facility] de Phone Number [facility] [place] [address] * (ABNORMAL) APTT (06/08/2016 8:40 PM EDT) Partial Thromboplastin Time 133(Criti jm) 25 - [address] [facility] Comment: Called by: JED, Read back by: Fabiola Villaseñor/RAMIN, Date/Time:06/08/16 21:02. The recommended therapeutic range for full dose, unfractionated heparin at [facility] is 80 ? 114 seconds. The use of the anti-Xa (heparin) level rather than the PTT is recommended for monitoring anticoagulation intensity in critically ill patients receiving unfractionated heparin by continuous IV infusion. Blood specimen (specimen) 06/08/2016 8:40 PM EDT 06/08/2016 8:44 PM EDT Narrative Resulting Agency Comment Spec In Lab Kash Morfin MD HEMATOLOGY ORDERABLE S Performing Organization Address [facility] Co de Phone Number [facility] [place] [address] * (ABNORMAL) APTT (06/08/2016 6:55 PM EDT) Partial Thromboplastin Time >160.0(Cr itical) 25 - 35 [facility] Comment: Called by: JED, Read back by: Fabiola Villaseñor/RAMIN, Date/Time:06/08/16 19:34. The recommended therapeutic range for full dose, unfractionated heparin at [facility] is 80 ? 114 seconds. The use of the anti-Xa (heparin) level rather than the PTT is recommended for monitoring anticoagulation intensity in critically ill patients receiving unfractionated heparin by continuous IV infusion. Blood specimen (specimen) 06/08/2016 6:55 PM EDT 06/08/2016 7:01 PM EDT Narrative Resulting Agency Comment Spec In Lab Kash Morfin MD HEMATOLOGY ORDERABLE S Performing Organization Address [facility] Co de Phone Number [facility] [place] [address] * EKG 12 Lead (06/08/2016 6:30 PM EDT) Ventricular rate 68 BPM MUSE SYSTEM Atrial Rate 68 BPM MUSE SYSTEM P-R Interval 180 ms MUSE SYSTEM QRS Duration 68 ms MUSE SYSTEM Q-T Interval 432 ms MUSE SYSTEM QTC Calculated (Bezet) 459 ms MUSE SYSTEM Calculated P [place] 70 degrees MUSE SYSTEM Calculated R [place] 3 degrees MUSE SYSTEM Calculated T [place] 65 degrees MUSE SYSTEM INTERPRETATION Normal sinus rhythm Normal ECG When compared with ECG of 05-OCT-2005 17:11, No significant change was found Confirmed by Xavier Sanders MD ([id number]) on 06/10/2016 8:18:27 AM MUSE SYSTEM 06/08/2016 6:30 PM EDT 06/10/2016 8:18 AM EDT Kash Morfin MD ECG ORDERABLES Performing Organization Address [facility] de Phone Number MUSE SYSTEM documented in this encounter Visit Diagnoses Not on filedocumented in this encounter Admitting Diagnoses Diagnosis 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 Scheduled Medication Order 06/08/2016 06/09/2016 06/10/2016 amLODIPine (NORVASC) tablet 5 mg 5 mg, Oral, DAILY, First dose on Wed06/08/16 at 1900, Until Discontinued, Routine 4298 (Given - Provider: Gaviota Whitley RN) 0823 (Given - Provider: Yonathan Al RN) 0824 (Given - Provider: Lorraine Hernández, GAYLE) aspirin chewable tablet 81 mg 81 mg, Oral, DAILY, First dose on Wed06/08/16 at 1700, Until Discontinued, Routine 1800 (Given - Provider: Gaviota Whitley RN) 0823 (Given - Provider: Yonathan Al RN) 0825 (Given - Provider: Lorraine Hernández RN) clopidogrel (PLAVIX) tablet 75 mg 75 mg, [...] on Wed06/08/16 at 1700, Until Discontinued, Routine 1759 (Given - Provider: Gaviota Whitley RN) 0823 (Given - Provider: Yonathan Al RN) 0824 (Given - Provider: Lorraine Hernández, GAYLE) pantoprazole (PROTONIX) tablet 40 mg(Linked Group 1) 40 mg, Oral, DAILY, First dose on Wed06/08/16 at 1900, Until Discontinued, DO NOT CRUSH OR OPEN If unable to take PO, may give IV 180 (Given - Provider: Gaviota Whitley RN) 0823 (Given - Provider: Yonathan Al RN) 0824 (Given - Provider: Lorraine Hernández, GAYLE) simvastatin (ZOCOR) tablet 20 mg 20 mg, Oral, EVERY EVENING, First dose on Wed06/08/16 at 2100, Until Discontinued 2010 (Given - Provider: Fabioal Blas RN) 1750 (Given - Provider: Aleisha [...] RN)1700 (Rate/Dose Verify - Provider: Gaviota Whitley, GAYLE)193 (Paused - Provider: Fabiola Blas RN)2035 (Paused [...] Whitley, GAYLE)2116 (New Bag - Provider: Sierra Fonseca, GAYLE) PRN Medication Order 06/08/2016 06/09/2016 06/10/2016 acetaminophen [...] Routine documented in this encounter Care Teams Medical Laboratory Technician Relationship Specialty Start Date End Date Neda Keller MD [address] [place] [address] PCP - General 01/28/10 03/05/22 documented as of this encounter
--- NOTE | 2024-02-07 16:40 | W.ED.GENAD ---
Discharge Plan Disposition Patient Disposition: Home Condition: Stable Discharge Details Clinical Impression: Blunt head trauma, Contusion of hand, right Primary Care Provider: Qamar Benavides ED Provider: Giacomo Blanco Home Meds and New Rx's Prescriptions: Continued diphenhydramine-acetaminophen [Tylenol PM Extra Strength] 1 EACH tablet 1 ea PO PRN PRN atorvastatin 40 mg tablet 40 mg PO DAILY Patient Comments: TAKE 1 TABLET BY MOUTH ONCE DAILY metoprolol succinate 100 mg tablet extended release 24 hr 100 mg PO DAILY Patient Comments: TAKE 1 TABLET BY MOUTH TWICE DAILY omega-3 fatty acids Capsule 1 cap PO DAILY calcium carbonate-vitamin D3 [Calcium 500 With D] 500 mg(1,250mg) -400 unit Tablet 1 tab PO DAILY diclofenac sodium [Arthritis Pain (diclofenac)] 1 % Gel 1 applic TOPICAL PRN PRN Adults Multivitamin 18 mg iron-400 mcg-25 mcg Tablet 1 tab PO DAILY aspirin 81 mg tablet,chewable 81 mg PO DAILY Patient Comments: Take 1 tablet by mouth once a day with meals losartan 50 mg tablet 75 mg PO DAILY Patient Comments: take 1.5 tablets by mouth daily in the evening chlorthalidone 25 mg tablet 25 mg PO DAILY Patient Comments: Take 1 tablet by mouth every morning Xarelto 15 mg tablet 15 mg PO DAILY Patient Comments: Take 1 tablet by mouth once a day oxybutynin chloride 5 mg tablet extended release 24hr 5 mg PO DAILY Discharge Instructions Additional Instructions: Your CAT scan and hand x-ray did not show any concerning findings If you continue to have headaches or issues with your memory follow-up with your primary care provider If you feel more ill, have severe worsening pain or new symptoms such as difficulty breathing or abdominal pain return to the emergency department for reevaluation HPI General Date/Time Provider Initiated Documentation: 02/07/24 16:29. Limitations to Documentation: no limitations. Information obtained by: patient. History of Present Illness 88 year old F presents to the emergency department with the chief complaint of fall, head trauma, described as moderate, Quality is described as aching, Patient started experiencing this hour(s) (2) and it has been constant. No relieving factors improve symptom(s), No exacerbating factors reported . Patient notes denies chest pain, nausea/vomiting and shortness of breath. Patient did receive the following treatments prior to arrival, none Related Data Home Medications ?Medication ?Instructions ?Recorded ?Confirmed diphenhydramine 25 1 ea PO PRN PRN 09/16/12 02/07/24 mg-acetaminophen 500 mg tablet (Tylenol PM Extra Strength) atorvastatin 40 mg tablet 40 mg PO DAILY 11/05/20 02/07/24 calcium 500 mg (as 1 tab PO DAILY 11/05/20 02/07/24 carbonate)-vitamin D3 10 mcg (400 unit) tablet (Calcium 500 With D) diclofenac sodium 1 % topical gel 1 applic topical PRN PRN 11/05/20 02/07/24 (Arthritis Pain (diclofenac)) metoprolol succinate 100 mg 100 mg PO DAILY 11/05/20 02/07/24 tablet,extended release 24 hr multivit with minerals-iron 18 1 tab PO DAILY 11/05/20 02/07/24 mg-folic ac 400 mcg-vit K 25 mcg tablet (Adults Multivitamin) omega-3 fatty acids 1 cap PO DAILY 11/05/20 02/07/24 aspirin 81 mg chewable tablet 81 mg PO DAILY 07/11/23 02/07/24 chlorthalidone 25 mg tablet 25 mg PO DAILY 07/11/23 02/07/24 losartan 50 mg tablet 75 mg PO DAILY 07/11/23 02/07/24 oxybutynin chloride 5 mg 5 mg PO DAILY 07/11/23 02/07/24 tablet,extended release 24 hr rivaroxaban 15 mg tablet (Xarelto) 15 mg PO DAILY 07/11/23 02/07/24 Allergies Allergy/AdvReac Type Severity Reaction Status Date / Time No Known Allergies Allergy Unverified 02/07/24 16:35 General Stated Complaint: Fall/Non TraumaCriteria JEFF: 3 Review of Systems All systems reviewed & are unremarkable except as noted in HPI and below Constitutional Constitutional: Denies chills, Denies fever(s) and Denies weakness Eyes Eyes: Denies loss of vision ENT Ears, Nose, Mouth, and Throat: Denies change in voice Cardiovascular Cardiovascular: Denies chest pain and Denies dyspnea Respiratory Respiratory: Denies cough and Denies dyspnea Gastrointestinal Gastrointestinal: Denies abdominal pain, Denies nausea and Denies vomiting Neurologic Neurologic: Denies loss of vision and Denies weakness Exam Const General: no acute distress Orientation: alert HENKY Head: no palpable skull fracture Ears: external ears normal General nose exam: no epistaxis Mouth: moist mucous membranes Eyes General: appearance normal, both eyes and all related structures Neck Neck: normal visual inspection and nontender Chest Chest: no tenderness Breast inspection: normal inspection of the breasts Resp Effort & Inspection: normal respiratory effort and able to speak in complete sentences Auscultation: clear to auscultation bilaterally Cardio Rate: regular rate GI Palpation: soft and nontender Back/Spine/Pelvis Back: no CVA tenderness Thoracic/Lumbar Spine: No thoracic spinal tenderness and No lumbar spinal tenderness Skin General skin exam: no rashes or lesions noted Neuro General: patient alert and patient oriented x3 Extrem General: normal to inspection Psych Mental Status: mental status grossly normal Course Vital Signs Vital signs: Vital Signs Pulse 50 L 02/07/24 16:24 Respiratory Rate 20 02/07/24 16:24 Blood Pressure 196/102 H 02/07/24 16:24 Pulse Oximetry 96 02/07/24 16:24 Pulse 50 L 02/07/24 16:24 Respiratory Rate 20 02/07/24 16:24 Blood Pressure 196/102 H 02/07/24 16:24 Blood Pressure Position Sitting 02/07/24 16:24 Pulse Oximetry 96 02/07/24 16:24 Oxygen Delivery Method Room Air 02/07/24 16:24 Oxygen Flow Rate 0 02/07/24 16:24 Procedures Laceration Laceration 1: Size (cm): 0.5 Description: linear Depth: simple, single layer Pre-repair: wound explored and irrigated extensively Skin layer closed with: other (skin adhesive) Medical Decision Making 88-year-old female who is on Xarelto comes in after a fall. She says she was walking in a local [place] [employer] when she did not see that the curb stepped up and tripped falling forward. She denies any preceding symptoms such as lightheadedness, dizziness, chest pain or difficulty breathing. She did not have loss of consciousness. She has swelling of her nose without significant displacement, no septal hematomas. She has 1/2 cm superficial laceration superior to the right eyebrow. There is no palpable skull fractures, no neck tenderness or thoracic or lumbar spine tenderness. No chest or abdomen tenderness. She does have tenderness of the right index finger between the PIP and DIP joint. She does have full range of motion and intact sensation. No pain in the wrist. Will obtain CT head, facial bones and C-spine given her age and also hand x-ray. Given lack of pain and tenderness elsewhere do not feel other imaging indicated and she states this was purely mechanical do not feel any lab work indicated. Imaging shows no significant acute findings, patient is stable. The wound is not deep enough to warrant any sutures, I did closed with skin adhesive, she has no other acute complaints. She is stable for discharge and will follow-up with her PCP if she has symptoms of a concussion. Return precautions given Differential Diagnosis Differential Diagnosis: Fracture, contusion Quality:SDOH Health Related Social Needs: No Data to Display PFSH All Active Problems (Updated 02/07/24 @ 18:13 by Giacomo Blanco MD) Contusion of hand, right (Acute) Blunt head trauma (Acute) Hypertension (Chronic) Chest pain (Acute) Social History Smoking/Tobacco Use Status: Never Smoking risk assessment performed?: Yes Alcohol Intake: current Alcohol Intake frequency: holidays/special occasions only Drug use: Never Substance use type: does not use Housing: house Do you feel safe at home: Yes Do you feel safe in your relationship?: Yes Additional Social history: unable to assess privately
--- NOTE | 2024-02-07 17:07 | DI.CT_ITS ---
Exam(s) CT HEAD CERV SPINE FACIAL WO EXAM: CT HEAD CERV SPINE FACIAL WO CLINICAL HISTORY: fall, facial bruising/lacs. TECHNIQUE: Imaging Protocol: Axial computed tomography images with coronal and sagittal reformatted images were created and reviewed COMPARISON: CT CT HEAD WO from 09/27/2023 FINDINGS: CT Head: Ventricles and Extra axial spaces: Normal in size and morphology for the patient's age. Hemorrhage: None. Cerebral parenchyma: There are areas of decreased attenuation in the white matter consistent with chr onic microvascular ischemic disease. 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 No acute territorial infarct is seen. Midline shift: None. Brainstem/Cerebellum: Normal. Calvarium: Normal. Visualized Paranasal sinuses/Mastoids: Clear. Soft Tissues: There is soft tissue swelling over the right frontal bone and in the medial periorbital soft tissues. Vasculature: There is again seen a stent in the distal right internal carotid artery. 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 It measures 1.[address] Face: Facial Bones: No definite fracture is noted in facial bones. Sinuses and Mastoids: Mild mucosal thickening is seen in the maxillary sinuses. The remaining visua lized paranasal sinuses and mastoid air cells are clear. No air-fluid levels are present. Nasal sep genia mildly deviates to the left. The turbinates and ostiomeatal complexes are unremarkable. Globes, extraocular muscles, optic nerves and retrobulbar fat: Normal. Upper aerodigestive tract: Normal. Mandible and bilateral temporomandibular joints: Normal. Soft tissues: Normal. CT Cervical Spine: Bones: No acute fracture or subluxation. Postsurgical changes are seen in the cervical spine. There are C3 through C6 laminectomies. 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 Age-ap propriate degenerative changes are seen in the cervical spine. Soft Tissues: Unremarkable. Lung Apices: Clear. IMPRESSION: 1. No acute intracranial process. 2. Soft tissue swelling over the right frontal bone and in the medial right periorbital soft tissues. 3. No acute fracture or subluxation in the cervical spine. 4. No acute facial fracture. RADIATION DOSE DELIVERED: !Error Total DLP DATA REPOSITORY: All CT scans at this facility are submitted to the National Radiology Data Registry (NRDR) Dose Index Registry (DIR) with the [employer] ([employer]). RADIATION OPTIMIZATION: All CT scans at this facility use at least one of these dose optimization te chniques: automated exposure control; mA and/or kV adjustment per patient size (includes targeted exa ms where dose is matched to clinical indication); or iterative reconstruction.
--- NOTE | 2024-02-07 17:11 | DI.RAD_ITS ---
Exam(s) XR HAND RT COMPLETE EXAM: XR HAND RT COMPLETE CLINICAL HISTORY: fall pain. TECHNIQUE: 2D digital imaging was performed of the right hand. Three images were obtained. AP, late ral and oblique views were obtained. COMPARISON: No exams were available for comparison FINDINGS: BONES: No acute fracture is present. No bony destructive lesion is seen. JOINTS: No dislocation present. Marked arthritic changes are seen in the hand and wrist characterized by joint space narrowing and osteophytes. The findings are most marked at the 1st CMC joint. SOFT TISSUE: Normal. IMPRESSION: 1. No acute fracture or dislocation. 2. Marked osteoarthritis of the hand. DATA REPOSITORY: RADIATION DOSE DELIVERED:
[2024-02-07 18:15] VITALS: BP 195/92; PULSE 55; O2SAT 96
== END 2024-02-07 18:21 | disposition home or self-care (01) ==
PROVIDERS: Emergency Provider Emergency Medicine; PCP Family Medicine
DX: S09.8XXA Other specified injuries of head, initial encounter (principal); S01.111A Laceration without foreign body of right eyelid and periocular area, initial encounter; S60.221A Contusion of right hand, initial encounter; Z79.82 Long term (current) use of aspirin; Z79.01 Long term (current) use of anticoagulants; W10.1XXA Fall (on)(from) sidewalk curb, initial encounter; Y93.01 Activity, walking, marching and hiking; Y92.480 Sidewalk as the place of occurrence of the external cause
CPT/HCPCS: 99284; 70450; 70486; 72125; 73130; 99283

== ENCOUNTER 2024-02-22 16:38 | Outpatient (REF) | payer MEDICARE, SELFPAY ==
[2024-02-22 15:57] LABS: Abs Immature Grans 0.04 10^3/uL (0.0-0.06); Absolute Basophil Count 0.03 10^3/uL (0.0-0.2); Absolute Eosinophil Count 0.11 10^3/uL (0.0-0.7); Absolute Lymphocyte Count 1.24 10^3/uL (1.2-3.4); Absolute Monocyte Count 0.77 10^3/uL (0.1-0.8); Absolute Neutrophil Count 5.83 10^3/uL (1.2-6.7); Basophils % 0.4 %; Eosinophils % 1.4 %; HCT 41.9 % (36.0-46.0); HGB 13.1 g/dL (11.2-15.7); Immature Grans % 0.5 %; Lymphocytes % 15.5 %; MCHC 31.3 % (32.0-36.0); MCV 96 fL (80-95); MPV 11.4 fL (8.0-11.0); Monocytes % 9.6 %; Neutrophils % 72.6 %; Platelet Count 188 10^3/uL (130-400); RBC 4.36 10^6/uL (3.93-5.22); RDW 13.1 % (11.7-14.6); RDW-SD 46.6 fL; WBC 8.02 10^3/uL (4.4-10.8)
[2024-02-22 16:13] LABS: ALT 18 U/L (14-59); AST 28 U/L (15-37); Albumin 3.2 g/dL (3.4-5.0); Alkaline Phosphatase 102 U/L (46-116); Anion Gap 10.7 mmol/L (3-11); BUN 25 mg/dL (7-18); Bilirubin, Total 0.94 mg/dL (0.2-1.0); CO2 26.3 mmol/L (21.0-32.0); CREATININE 0.8 mg/dL (0.55-1.02); Calcium 8.9 mg/dL (8.5-10.1); Chloride 104 mmol/L (98-107); Estimated GFR 71.27 (mL/min/1.73m2); Glucose 98 mg/dL (74-106); Potassium 3.8 mmol/L (3.5-5.1); Sodium 141 mmol/L (136-145); Total Protein 6.7 g/dL (6.4-8.2)
== END 2024-02-22 16:39 | disposition home or self-care (01) ==
LOC: NCHCN 16:38
PROVIDERS: PCP Family Medicine; Visit Provider Family Medicine
DX: I10 Essential (primary) hypertension (principal)
CPT/HCPCS: 80053; 85025